=== PATIENT | male | born 1955 | race Caucasian/White ===

== ENCOUNTER 2021-03-23 07:30 | Outpatient (RCR) | payer MEDICARE, OTHER, SELFPAY ==
--- NOTE | 2021-03-02 13:40 | HP.PTEVAL_ITS ---
Patient's Visit Information MATEO ESQUEDA is a 65 year old M referred to Physical Therapy by Dr. Tess Krause DO with a diagnosis of Bilateral Hip Bursitis. Date of Evaluation: 03/02/21 Physical Therapist: Renuka Ambrose DPT - Visit Plan Frequency: 2x /Week Duration: 4 Weeks Plan: Focus on core strength/stabilization. HEP Given IE: TA contraction, bridge, hip adduction, pirformis stretch seated, hamstring stretch - Subjective Patient reports that he has been having pain for about a year-insidious onset- feels the pain is spreading further down his legs but the pain is the same. Describes the pain as burning- pain is in the gluts and radiates down the left LE- the knee and both of his feet hurt in the arches. Worst: 5/10 Agg: walking distances (500 feet). Eases: sits down the pain goes away Best: 0/10. Almost instantly the pain goes away. No N/T in the LE. Has not had any x-rays taken. He has had intermittent back problems- nothing he has gotten looked at- sciatica. 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 No issues with his legs given out, stumbles or falls. 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 If he walks he can stop and the pain diminishes but doesn't completely go away until he sits down. Sleep: does wake him up if he sleeps on his right side- he will roll over to his left. The left doesn't bother him when he lays on it. He never slept well. He has worked hard his whole life. PMHx: IBS-Diverticulitis Meds: Cialis. 2 years ago he worked out everyday (TM and free weights). He notices now that he hasn't done any of them he is very limited with endurance. - Objective Posture: FH, RS, can correct with verbal cues but does not maintain. Gait: no deviation noted. HR/TR: able without incidence. SLS: 15 seconds- increased trunk sway and hip drop. Stairs: asc/desc- 8 recip with no HR- moderate decrease in control with descent. ROM: Lumbar: WFL reports discomfort with Rot and SB bilateral, Hip: IR/ER increase pain with 25% limitation. Knee/Ankle: WFL. Strength: Core: fair minus, Hip: 4/5 throughout pain with IR/ER, Knee: 5/5 Ankle: 5/5. Flex: HS: severe, Gastroc: severe,. Special Test: LLD negative, Slump: positive, SLR: positive, Dural Signs: positive. Sensation: WNL to gross touch bilateral - Goals Goal 1:: Patient will be I with HEP and progression Goal Time Frame: 4-6 Weeks Goal 2:: Patient will maintain proper posture t/o tx session to demo increased core strength and stabilization Goal Time Frame: 4-6 Weeks Goal 3:: Patient will report no pain with ambulation Goal Time Frame: 4-6 Weeks Goal 4:: Patient will report no radiating symptoms. Goal Time Frame: 4-6 Weeks - Rehabilitation Potential Physical Therapy Diagnosis: Patient presents with hypomobility- he has decreased LE and core strength/stabilization, flex and muscular endurance leading to poor posture and increased pain with ADL's. Rehabilitation Potential: Fair - Anticipated Interventions Patient/Client Instruction: Educate patient on: Benefits of Fitness Program Therapeutic Exercise to Include: Strength training, Endurance training, Balance training, Coordination, Agility training, Body mechanics, Postural training, Flexibilty training, Gait and locomotor training, Neuromotor development, Passive ROM, Active ROM, Dynamic Lumbar Stabilization, Scapular Strength/Stabilization For the Purpose of:: To improve muscle performance and motor function Thank you for the opportunity to evaluate your patient. For Medicare and Medicare HMO plans, please review the plan of care and approve it. It will need to be FAXED BACK to us at [phone] for Medicare purposes. For Medicare only, by signing this I certify the plan of care. Please let me know if there are questions or concerns regarding this plan of care. Physician Signature: Date:
--- NOTE | 2021-07-31 08:10 | HP.PT.NRP ---
PANKAJ ESQUEDA was seen in my office for initial evaluation on 03/02/21. The following Plan of Care was established for this patient: Initial Frequency: 2x /Week Initial Duration: 4 Weeks Patient/Client Instruction: Educate patient on: Benefits of Fitness Program Therapeutic Exercise to Include: Strength training, Endurance training, Balance training, Coordination, Agility training, Body mechanics, Postural training, Flexibilty training, Gait and locomotor training, Neuromotor development, Passive ROM, Active ROM, Dynamic Lumbar Stabilization, Scapular Strength/Stabilization For the Purpose of:: To improve muscle performance and motor function This patient was last seen in our office . Pertinent comments regarding their Physical therapy will appear below: Patient has not attended PT in over 4 weeks and is appropriate for discharge- return to MD for further evaluation as needed. At this point I will be discontinuing this patient from physical therapy. I would be happy to see this patient again in the future if found appropriate by the physician. Thank you! Renuka Ambrose, SOFIAT Balance/Gait/Functional tests - Balance/Special Test Scores Lower Extremity Functional Score: 49
== END 2021-03-23 19:00 | disposition home or self-care (01) ==
LOC: PT 07:30
PROVIDERS: PCP Internal Medicine; Referring Provider Internal Medicine; Visit Provider Internal Medicine
DX: M70.62 Trochanteric bursitis, left hip (principal); M70.61 Trochanteric bursitis, right hip; Y93.9 Activity, unspecified
CPT/HCPCS: 97110; 97162

== ENCOUNTER → 2021-04-20 14:31 | Outpatient (CLI) | payer MEDICARE, OTHER, SELFPAY ==
[2021-04-20 16:20] LABS: Bacteria 0 SEEN /hpf (None Seen); Mucous, Urine 0 SEEN /hpf (<or=2+); Squamous Epithelial Cells - UA 0 SEEN /hpf (0-5)
[2021-04-20 16:25] LABS: Color, Urine Yellow (Yellow); Glucose, Dipstick Normal (Normal); Ketone-Dipstick Negative (Negative); Leukocyte Esterase-Dipstick 500 /ul (Negative); Nitrite-Dipstick Negative (Negative); Occult Blood-Urine 250 /ul (Negative); Protein-Dipstick 30 mg/dl (Negative); Specific Gravity, Urine 1.025 (1.002-1.030); Urine Bilirubin Dipstick Negative (Negative); Urine Clarity Cloudy (Clear); Urine Urobilinogen Normal (Normal)
[2021-04-20 19:28] LABS: Amorphous Sediment 3+; Calcium Oxalate Crystals Ur 2+ /hpf (<or=2+)
[2021-04-20 19:29] LABS: Red Blood Cells-Urine 5-10 SEEN /hpf (0-5); White Blood Cells 10-25 SEEN /hpf (0-5)
== END ==
PROVIDERS: PCP Internal Medicine; Referring Provider Nurse Practitioner Adult Health; Visit Provider Nurse Practitioner Adult Health
DX: R31.21 Asymptomatic microscopic hematuria (principal); Z12.5 Encounter for screening for malignant neoplasm of prostate
CPT/HCPCS: 36415; 81001; 84153; G0103

== ENCOUNTER → 2021-05-30 09:20 | Outpatient (CLI) | payer MEDICARE, OTHER, SELFPAY ==
--- NOTE | 2021-05-30 09:24 | RAD_ITS ---
INDICATION: URINARY CALCULI EXAMINATION/TECHNIQUE: X-RAY - XR Abdomen 1 View COMPARISON: None FINDINGS: BOWEL GAS PATTERN: Non-obstructive. No bowel or stomach distention. FREE AIR: Not assessed on a single supine view. ORGANOMEGALY: Not seen. CALCIFICATIONS: Multiple calcifications visualized superimposed over the left renal bed, largest of which is visualized superimposed over the medial aspect of the midpole of the left kidney measuring 1.4 cm. No calcifications superimposed over the right renal bed. LOWER CHEST: No acute pathology. BONES AND SOFT TISSUES: Degenerative bone changes seen. No acute pathology. RAD/Abdomen Single View IMPRESSION: Multiple calcifications visualized superimposed over the left renal bed, largest of which is visualized superimposed over the medial aspect of the midpole of the left kidney measuring 1.4 cm. Non-obstructive bowel gas pattern. Electronically Signed: Fabian Davis MD at 12:20 EDT Tel , Service support ,
== END ==
PROVIDERS: PCP Internal Medicine; Referring Provider Urology; Visit Provider Urology
DX: Z87.442 Personal history of urinary calculi (principal)
CPT/HCPCS: 74018

== ENCOUNTER → 2021-06-12 09:58 | Outpatient (CLI) | payer MEDICARE, OTHER, SELFPAY ==
[2021-06-12 11:11] LABS: Hematocrit 46.4 % (40-54); Hemoglobin 15.3 g/dL (13.0-16.5); Mean Corpuscular Hgb 30.7 pg (27.0-32.0); Mean Corpuscular Volume 93.2 fL (80-94); Mean Platelet Vol. 9.4 fl (6.2-12.0); Platelet Count 205 K/mm3 (150-450); RBC Distribution Width CV 13.6 % (11.6-14.6); RBC Distribution Width SD 46.3 fl (35.1-43.9); Red Blood Count 4.98 M/mm3 (4.6-6.2); White Blood Count 2.7 K/mm3 (4.4-11.0)
[2021-06-12 11:34] LABS: Anion Gap 6 (5-15); BUN 25 mg/dL (7-18); BUN/Creat Ratio 28.5 RATIO (10-20); Calcium,Total 8.8 mg/dL (8.5-10.1); Chloride 105 mmol/L (98-107); Creatinine, Serum 0.88 mg/dL (0.70-1.30); EST Glomerular Filtration Rate 92 mL/min (>60); Est Glom Filt Rate - Afr Amer 112 mL/min (>60); Glucose 106 mg/dL (74-106); Sodium Level 139 mmol/L (136-145)
== END ==
PROVIDERS: PCP Internal Medicine; Referring Provider Urology; Visit Provider Urology
DX: Z01.818 Encounter for other preprocedural examination (principal); Z03.818 Encounter for observation for suspected exposure to other biological agents ruled out
CPT/HCPCS: 36415; 80048; 85027; 87635; C9803; U0005; U0003

== ENCOUNTER → 2021-06-29 06:28 | Outpatient (CLI) | payer MEDICARE, OTHER, SELFPAY ==
--- NOTE | 2021-06-29 06:38 | MRI_ITS ---
History: LOW BACK PAIN, LEFT SCIATIC NERVE PAIN Technique: T1 and T2 MR imaging of the lumbar spine performed without contrast enhancement in axial and sagittal planes. Findings: Loss of the lumbar lordosis. Prominent disc space narrowing noted at the L2-3 and L3-4 levels and to a lesser degree at L4-5 and L5-S1. Modic type II endplate changes are present at the L2-3 level. Conus medullaris and cauda equina are normal. Paraspinal soft tissues are normal. L1-2: No disc protrusion. Normal caliber spinal canal and neural foramina. L2-3: No disc protrusion. Normal caliber spinal canal and neural foramina. L3-4: The vertebral body hypertrophy and facet arthropathy noted causing minimal narrowing of the spinal canal and neuroforamina. L4-5: Mild disc bulging, ligamentous redundancy and facet arthropathy result in minimal impression on the thecal sac and moderate narrowing of the neural foramina. L5-S1: Prominent left central disc herniation displaces the left L5 nerve root and causes significant narrowing of the left lateral recess. Left-sided facet arthropathy also contributes to significant narrowing of the left neural foramen. IMPRESSION: Large left central L5-S1 disc herniation displacing the L5 nerve root and causing significant narrowing of the left lateral recess. Additional findings detailed above. at 1003 Reported and signed by: Jarvis Lipscomb MD Electronically Signed: Jarvis Lipscomb MD at 10:02 EDT Tel , Service support , MRI/Spine Lumbar (Routine)
== END ==
PROVIDERS: PCP Internal Medicine; Referring Provider Internal Medicine; Visit Provider Internal Medicine
DX: M54.32 Sciatica, left side (principal)
CPT/HCPCS: 72148

== ENCOUNTER 2021-07-05 09:17 | Day surgery (SDC) | payer MEDICARE, OTHER, SELFPAY ==
--- NOTE | 2021-07-04 08:50 | RAD_ITS ---
STUDY: X-RAY - ABDOMEN/PELVIS REASON FOR EXAM: Male, 65 years old. Preoperative evaluation for kidney stones. TECHNIQUE: Single AP view of the abdomen / pelvis. COMPARISON: 05/30/2021. FINDINGS: Ureteral catheter in place. There is an unremarkable bowel gas pattern. There is no demonstrated free abdominal air. Stable calcifications overlying the left kidney. Normal soft tissue structures. Normal visualized osseous structures. RAD/Abdomen Single View IMPRESSION: Placement of ureteral catheter with stable left nephrocalcinosis. No acute finding. Electronically Signed: Cayetano Otero MD at 10:01 EDT , Service support ,
[2021-07-05 09:45] VITALS: BP 132/75; PULSE 85; RESP 18; TEMP 36.4; O2SAT 97; BMI 28.5
[2021-07-05] MEDS: Lactated Ringers 1,000 ML 100 ML IV (09:45)
[2021-07-05] MEDS: Cefazolin 2 GM in 0.9% Normal Saline 100 ML IV (11:08)
--- NOTE | 2021-07-05 11:09 | OP.PCM_ITS ---
Report of Operation Date of Procedure: 07/05/21 Pre-Operative Diagnosis: left renal calucli s/p stent placement. Post-Operative Diagnosis: same Surgery/Procedure Performed:: Left ESWL Description of Surgical Findings:: Patient presents to the hospital for treatment of a kidney stone with shockwave lithotripsy. In the preoperative area and x-ray was done to confirm the location of the stone, he currently has a stent in place with stone visible on pre op KUB. The x-ray was reviewed and the stone location was reviewed. In the preoperative setting I spoke with the patient regarding the treatment of the stone how the treatment would be conducted and the expectations after surgery. The patient understands there is a risk of bleeding and infection. Also discussed the very rare risk of hematoma or damage to the kidney. We also discussed the risk that the shockwave machine will fail to break the stone adequately and that the patient may need other surgical procedures. We also discussed the possibility that the patient may n eed a stent after the procedure. After reviewing the procedure with the patient, the patient is signed the consent form all the patient's questions were addressed and was taken back to the operating room for treatment of a kidney stone. Patient was taken back to the operating room, patient was identified by the nursing staff, we identified the side of the treatment and the patient side of treatment had been marked by my initials. The patient underwent general anesthetic and was placed supine on the lithotripter table. We then used fluoroscopy to identify the stone on the Left side. We then positioned the patient under the lithotripter and we used triangulation technique to identify the location of the stone and then we made sure that the stone was engaged in the F2 focal point of F2 Donier lithoprior machine. Once the patient was positioned appropriately and the stone was identified and placed in the F2 focal point of the lithotripter machine we then proceeded with shockwave lithotripsy. In the beginning the shockwave was delivered at a rate of 90 shocks per minute, we monitor the EKG for any ectopy. The power was slowly increased to 5 kV and subsequently at the 7 kV. We then proceeded with the treatment we move the therapy had around during the treatment to make sure the stone stayed in the F2 focal point during the entire treatment and after 3000 shockwaves were delivered to the stone under fluoroscopic guidance the treatment was completed. The patient was given instructions to call the office to make an a follow-up appointment with an xray to evaluate the success of the treatment, pateint understands that its possible the stones may need another procedure.At this point the patient's anesthetic was reversed patient was extubated and taken back to the PACU in stable condition. Surgeon: crow Type of Anesthesia: General Drains: stent in place. Admit VTE Documentation VTE Present on Admission: No VTE Mechan Device Prophylaxis: SCD's
--- NOTE | 2021-07-05 11:09 | PCM.DC ---
Discharge Instructions Diet Discharge Diet: No restrictions Activity Discharge Activity: Return to Normal Activity and May Not Drive (while taking narcotic pain medications.) Dressing / Incision Call your doctor if you observe: Fever of 101 or Higher Follow Up Care Please Follow Up With: Nicola Magana MD When: Call [phone] for an appointment Test Results: Test results from this visit will be discussed in further detail at your follow-up appointment, if applicable. use OTC ibuprofen and tylenol for pain control Discharge Plan Admission Primary Reason for Your Visit: Left ESWL Attending Provider: Nicola Magana Primary Care Provider: Tess Krause Discharge Orders/Prescriptions Prescriptions: New ciprofloxacin HCl [Cipro] 500 mg tablet 500 mg PO BID Qty: 10 RF: 0 Continued citalopram [Celexa] 40 mg Tablet 20 mg PO DAILY RF: 0 organ concentrates 140 mg Capsule 140 mg PO DAILY RF: 0 tadalafil [Cialis] 5 mg Tablet 5 mg PO DAILY RF: 0 cholecalciferol (vitamin D3) [Vitamin D3] 25 mcg (1,000 unit) Tablet 25 mcg PO DAILY RF: 0 phenazopyridine 95 mg Tablet 99.9 mg PO QHS RF: 0 Referrals / Follow Up: Nicola Magana MD [STAFF PHYSICIAN] - Tess Krause DO [Primary Care Provider] - Disposition Disposition (needs filled in before D/C Order can be placed): Home, Self Care
[2021-07-05 12:03] VITALS: BP 129/89; BP 132/75; PULSE 78; RESP 16; TEMP 36.4; O2SAT 95
[2021-07-05 12:15] VITALS: BP 132/75; BP 140/80; PULSE 67; RESP 18; O2SAT 96
[2021-07-05] MEDS: Ketorolac 15 MG/ML Vial IV (12:16)
[2021-07-05 12:23] VITALS: BP 132/75; BP 144/83; PULSE 75; RESP 18; TEMP 36.4; O2SAT 96
[2021-07-05 13:20] VITALS: BP 132/75; BP 155/74; PULSE 67; RESP 16; TEMP 35.9; O2SAT 97
--- NOTE | 2021-07-07 12:42 | PCM.HP.STD ---
HPI - General HPI Narrative PANKAJ ESQUEDA, is a 65 M who presents with obstructing stone, plan to place and stent treat stone with shockwave lithotripsy. PFSH Medical History (Updated 06/28/21 @ 10:52 by Megan Gonzáles) Alcohol use Back pain Former smoker Heartburn History of diverticulitis History of IBS History of stress test Wears glasses Home Medications cholecalciferol (vitamin D3) [Vitamin D3] 25 mcg PO DAILY 06/28/21 [History Last Taken Unknown] citalopram [Celexa] 20 mg PO DAILY 06/28/21 [History Last Taken Unknown] organ concentrates 140 mg PO DAILY 06/28/21 [History Last Taken Unknown] phenazopyridine 99.9 mg PO QHS 06/28/21 [History Last Taken Unknown] tadalafil [Cialis] 5 mg PO DAILY 06/28/21 [History Last Taken Unknown] cephalexin 500 mg PO BID #10 tab 07/05/21 [Rx Last Taken Unknown] Allergy/AdvReac Type Severity Reaction Status Date / Time ciprofloxacin [From Cipro] AdvReac REFUSED, Verified 07/05/21 13:16 TOO MANY SIDE EFFECTS, TENDON DAMAGE Surgical History (Updated 06/28/21 @ 10:52 by Megan Gonzáles) History of cardiac catheterization Hx of colonoscopy Hx of cystoscopy Social History Smoking Status: Former smoker Vital Signs Vital Signs Vital Signs: Weight Weight: 75.5 kg Body Mass Index (BMI) 28.5
== END 2021-07-05 13:31 | disposition home or self-care (01) ==
LOC: SDC 09:18 → AC 09:18
PROVIDERS: PCP Internal Medicine; Referring Provider Urology; Visit Provider Urology
PROC: (CPT 50590; principal; 2021-07-05 11:20)
DX: N20.0 Calculus of kidney (principal); Z87.891 Personal history of nicotine dependence
CPT/HCPCS: 50590; 74018; 87426; C9803; J7120; J2405

== ENCOUNTER → 2021-07-10 10:21 | Outpatient (CLI) | payer MEDICARE, OTHER, SELFPAY ==
--- NOTE | 2021-07-10 10:25 | RAD_ITS ---
HISTORY: CALCULUS OF URETER. TECHNIQUE: XR Abdomen 1 View. # of images incl. paperwork: 1. COMPARISON: 07/04/2021. FINDINGS: BOWEL GAS PATTERN: No dilated bowel loops. FREE AIR: Not assessed on supine view. CALCIFICATIONS: Multiple left renal calculi again seen. Left pelvic phleboliths also noted. Left double-J ureteral stent again seen. OSSEOUS STRUCTURES: Mild degenerative change. RAD/Abdomen Single View IMPRESSION: Left nephrolithiasis with left ureteral stent identified. at 0841 Reported and signed by: Sharon Thomson MD Electronically Signed: Sharon Tohmson MD at 8:40 EDT Tel , Service support ,
== END ==
PROVIDERS: PCP Internal Medicine; Referring Provider Urology; Visit Provider Urology
DX: N20.1 Calculus of ureter (principal)
CPT/HCPCS: 74018

== ENCOUNTER → 2021-09-01 09:32 | Outpatient (CLI) | payer MEDICARE, OTHER, SELFPAY ==
--- NOTE | 2021-09-01 09:39 | CT_ITS ---
STUDY: CTA CHEST REASON FOR EXAM: Male, 65 years old. PULMONARY THROMBOEMBOLISM. 3 week history of shortness of breath and chest pain. Recent Covid exposure. RADIATION DOSAGE (If Supplied By Facility): CTDIvol = ( 9.89 ) mGy, DLP = ( 430.61 ) mGycm TECHNIQUE: The examination was performed with the intravenous administration of IV 75mL [id number]-[id number]. Post-processing of the angiographic images was performed, with multiplanar reformation and 3D reconstruction. Individualized dose optimization techniques were used for this CT. COMPARISON: None. FINDINGS: Normal enhancement of the main pulmonary artery and right and left pulmonary arteries. Normal enhancement of the bilateral peripheral pulmonary arteries. There is no demonstrated pulmonary embolism. Normal thoracic aorta and visualized great vessels. There is no demonstrated aortic dissection. Normal heart and pericardium. Normal mediastinum. Normal hilar regions. Normal visualized trachea and bronchi. The lungs are well expanded. Diffuse bilateral pulmonary infiltrates and a preferential peripheral distribution suggestive of a pneumonitis associated with Covid. Normal pleura. Normal chest wall structures. There are degenerative changes of thoracic spine. 8.6 mm adenoma in the left adrenal gland. CT/CTA Chest W/WO Contrast IMPRESSION: No evidence of pulmonary embolism. Diffuse bilateral pulmonary infiltrates and a preferential peripheral distribution suggestive of pneumonitis associated with Covid. Electronically Signed: Eddy Overton MD at 10:25 EST , Service support ,
[2021-09-01 09:56] LABS: CREATININE FINGERSTICK 0.6 mg/dL (0.70-1.30); EGFR FINGERSTICK > 60.0000 mL/min (>60)
== END ==
PROVIDERS: PCP Internal Medicine; Referring Provider Internal Medicine; Visit Provider Internal Medicine
DX: R06.02 Shortness of breath (principal)
CPT/HCPCS: 71275; Q9967

== ENCOUNTER 2022-01-01 10:17 | Outpatient (CLI) | payer MEDICARE, OTHER, SELFPAY ==
--- NOTE | 2022-01-01 10:22 | RAD_ITS ---
STUDY: X-RAY - ABDOMEN/PELVIS REASON FOR EXAM: Male, 66 years old. CALCULUS OF KIDNEY TECHNIQUE: Single AP view of the abdomen / pelvis. COMPARISON: Comparison is made with prior study 07/10/2021. FINDINGS: Normal visualized lung bases. There is a moderate amount of colonic fecal material. The visualized liver, spleen and kidneys are grossly normal in size and morphology. The previously seen left double-J stent catheter has been withdrawn. Normal soft tissue structures. There are diffuse degenerative changes of the visualized lumbar spine. RAD/Abdomen Single View IMPRESSION: No acute abnormality is seen. Electronically Signed: Eddy Overton MD at 15:01 EDT ,
== END 2022-01-01 23:59 | disposition home or self-care (01) ==
LOC: RAD 10:20
PROVIDERS: PCP Internal Medicine; Referring Provider Urology; Visit Provider Urology
DX: N20.0 Calculus of kidney (principal)
CPT/HCPCS: 74018

== ENCOUNTER 2023-03-03 19:01 | Emergency (ER) | payer MEDICARE, OTHER, SELFPAY ==
[2023-03-03 19:02] VITALS: BP 139/78; PULSE 95; RESP 18; TEMP 36.9; O2SAT 97; BMI 29.0
--- NOTE | 2023-03-03 19:26 | EDS_ITS ---
HPI History of Present Illness Chief Complaint: Abd Pain [facility] Medical History (Updated 03/03/23 @ 22:[address] Artemio Brandon, DO) Alcohol use Back pain Former smoker Heartburn History of diverticulitis History of IBS History of stress test Wears glasses Home Medications cholecalciferol (vitamin D3) 25 mcg (1,000 unit) tablet (Vitamin D3) 25 mcg PO DAILY 06/28/21 [History Last Taken Unknown] citalopram 40 mg tablet (Celexa) 20 mg PO DAILY 06/28/21 [History Last Taken Unknown] organ concentrates 140 mg capsule 140 mg PO DAILY 06/28/21 [History Last Taken Unknown] phenazopyridine 95 mg tablet 99.9 mg PO QHS 06/28/21 [History Last Taken Unknown] tadalafil 5 mg tablet (Cialis) 5 mg PO DAILY 06/28/21 [History Last Taken Unknown] cephalexin 500 mg tablet 500 mg PO BID #10 tabs 07/05/21 [Rx Last Taken Unknown] amoxicillin 875 mg-potassium clavulanate 125 mg tablet 1 tab PO BID 7 days #14 tabs 03/03/23 [Rx Last Taken Unknown] Allergy/AdvReac Type Severity Reaction Status Date / Time ciprofloxacin [From Cipro] AdvReac REFUSED, Verified 03/03/23 19:04 TOO MANY SIDE EFFECTS, TENDON DAMAGE Surgical History History of cardiac catheterization Hx of colonoscopy Hx of cystoscopy Social History Smoking Status: Former smoker EXAM Physical Exam Const Vital Signs: 03/03/23 19:02 03/03/23 22:25 Temperature 98.5 F Temperature Source Temporal Pulse Rate 95 Respiratory Rate 18 Blood Pressure 139/78 H 144/83 H Blood Pressure Mean 98 Pulse Ox 97 MDM MDM MDM Narrative Medical decision making narrative: HISTORY OF PRESENT ILLNESS: 67-year-old male here for abdominal pain. Notes 3 days of left lower quad abdominal pain with diarrhea. He is history of IBS. He further states he has severe left lower quadrant abdominal pain. Its not worse with food. States he has history of kidney stones is much more painful and not similar. Denies any urinary complaint such as frequency, urgency or foul smell. Denies any fever or vomiting. Denies any chest pain or shortness of breath. REVIEW OF SYSTEMS: Pertinent positives: Left lower quadrant abdominal pain Pertinent negatives: Vomiting PHYSICAL EXAM: Nursing triage notes reviewed, Vital signs reviewed Constitutional: please see mdm HENT: MMM Eyes: Pupils equal round and reactive to light, Extraocular muscles intact Neck: No stridor, no JVD, full neck ROM Lungs: Clear to auscultation, No wheezing or rales. No increased work of breathing, no conversational dyspnea, no accessory muscle use, no nasal flaring. No respiratory distress noted Heart: Regular rate and rhythm, No murmurs, No rubs and No gallops, 2+ distal pulses (radial, femoral, posterior tibial) in all extremities Abdomen: Soft, there is no tenderness, rigidity, rebound or guarding, no obvious peritoneal signs, no palpable pulsatile abdominal masses, no auscultated abdominal bruit : No CVAT Extremities: No edema Neuro: No focal neurological deficits, cranial nerves II through XII intact, 5/5 strength in all extremities. Intact sensation to light touch in all extremities, 2+ reflexes bilateral patella tendons. Normal gait. No ataxia. Skin: No rash or lesions noted MEDICAL DECISION MAKING: Chief Complaint: Abdominal pain External records reviewed: No recent [place] [facility] imaging of abdomen pelvis Factors affecting care: History of nephrolithiasis, IBS Social determinants of health: History of alcohol abuse History obtained from others: The patient's family Consults: None ALL IMAGES HAVE BEEN PERSONALLY REVIEWED AND INTERPRETED BY MYSELF. [facility] Narrative: I considered the following differential diagnosis: IBS flare, diverticulitis, dehydration, intra-abdominal infection, obstruction or perforation I obtained a CT scan abdomen pelvis showed evidence of acute diverticulitis. There is no signs of systemic inflammation, endorgan hypoperfusion on CBC or BMP. Patient was given first dose of Augmentin here. They were tolerated. He was given pain medicine and follow-up instructions as well as strict return precautions. Patient agreed with the plan. Total critical care time today provided was at least 0 minutes. This excludes separately billable procedures. Critical care time if documented is secondary to the patient having high probability of clinically significant/life threatening deterioration in the patient's condition which required my urgent intervention. Shared decision making: I will have a discussion with the patient and or visitors regarding risk/benefits of further testing or admission. They will be made aware of of the risk/benefits inherent in this decision they will be given the opportunity to voice understanding. Lab Data Attestation: I reviewed the patient's lab results. Lab results narrative: CBC without leukocytosis, severe anemia, no thrombocytopenia. BMP without evidence of significant electrolyte abnormalities, no anion gap, no acute kidney injury. Lipase is wnl indicating no pancreatic inflammation. Labs: Laboratory Results - last 24 hr 03/03/23 03/03/23 19:41 19:41 WBC 8.1 RBC 5.34 Hgb 16.1 Hct 49.4 MCV 92.5 MCH 30.1 MCHC 32.6 RDW Std Deviation 45.3 H RDW Coeff of Ne 13.4 Plt Count 268 MPV 10.2 Immature Gran % (Auto) 0.200 Neut % (Auto) 76.1 H Lymph % (Auto) 14.9 L [place] % (Auto) 7.7 Eos % (Auto) 0.7 Baso % (Auto) 0.4 Absolute Neuts (auto) 6.1 Absolute Lymphs (auto) 1.20 Nucleated RBC % 0 Sodium 137 Potassium 4.6 Chloride 106 Carbon Dioxide 25.0 Anion Gap 6 BUN 17 Creatinine 1.04 Estim Creat Clear Calc 56.92 Est GFR (MDRD) Af Amer 91 Est GFR (MDRD) Non-Af 75 BUN/Creatinine Ratio 16.3 Glucose 102 Calcium 9.5 Lipase 49 Radiography Diagnostic Testing: Clinical Impression(s) from Imaging Studies Abdomen/Pelvis CT 03/03/23 21:21 IMPRESSION: Acute diverticulitis of the distal descending colon without perforation or abscess. Nonobstructing stones of the left kidney. Electronically Signed: Miky Beltran MD at 22:13 EDT , Discharge Plan Triage Chief Complaint: Abd Pain ED Provider: Artemio Brandon Dx/Rx/DC Orders Clinical Impression: Acute diverticulitis Instructions: ED Diverticulitis Prescriptions: New amoxicillin-pot clavulanate 875-125 mg tablet 1 tab PO BID 7 Days Qty: 14 0RF No Action citalopram [Celexa] 40 mg Tablet 20 mg PO DAILY organ concentrates 140 mg Capsule 140 mg PO DAILY tadalafil [Cialis] 5 mg Tablet 5 mg PO DAILY cholecalciferol (vitamin D3) [Vitamin D3] 25 mcg (1,000 unit) Tablet 25 mcg PO DAILY phenazopyridine 95 mg Tablet 99.9 mg PO QHS cephalexin 500 mg tablet 500 mg PO BID Qty: 10 0RF Stand Alone Forms: ED Work / School Excuse Primary Care Provider: Tess Krause Referrals: Tess Krause, [Primary Care Provider] - Activity Restrictions/Additional Instructions: Thank you for trusting us with your care today! Please take Tylenol (2 pills, 650 mg), ibuprofen (2 pills, 400 mg) every 6 hours as needed for pain and fever control. Please take antibiotics until course complete. Please return to the emergency department if your symptoms change or worsen. Specifically if you develop acutely worsening abdominal pain, fever, vomiting cannot take antibiotics, if you cannot have bowel movements for greater than 7 days. Please follow with your primary care physician for further outpatient evaluation and management. Disposition Disposition: Home, Self Care Discharge Date/Time: 03/03/23 22:48
[2023-03-03 19:49] LABS: Absolute Neutrophil Count 6.1 X10^3/uL (2.0-7.7); Basophil# 0.03 X10^3/uL; Basophil% 0.4 % (0-1); Eosinophil# 0.06 X10^3/uL; Eosinophils% 0.7 % (0-5); Hematocrit 49.4 % (40-54); Hemoglobin 16.1 g/dL (13.0-16.5); Lymphocyte % 14.9 % (19-41); Mean Corp Hgb Conc 32.6 g/dL (32-36); Mean Corpuscular Hgb 30.1 pg (27.0-32.0); Mean Corpuscular Volume 92.5 fL (80-94); Mean Platelet Vol. 10.2 fl (6.2-12.0); Monocyte# 0.62 X10^3/uL; Monocyte% 7.7 % (0-10); NRBC Flagged by Analyzer 0 % (0-5); Neutrophil # 6.14 X10^3/uL (2.7-7.7); Neutrophil % 76.1 % (47-70); Platelet Count 268 K/mm3 (150-450); RBC Distribution Width CV 13.4 % (11.6-14.6); RBC Distribution Width SD 45.3 fl (35.1-43.9); Red Blood Count 5.34 M/mm3 (4.6-6.2); White Blood Count 8.1 K/mm3 (4.4-11.0)
[2023-03-03] MEDS: 0.9% Normal Saline 1,000 ML 1000 ML IV (19:49)
[2023-03-03] MEDS: Ondansetron 4 MG/2 ML Vial IV (19:50)
[2023-03-03] MEDS: Ketorolac 15 MG/ML Vial IV (19:50)
[2023-03-03 20:04] LABS: Anion Gap 6 (5-15); BUN 17 mg/dL (7-18); BUN/Creat Ratio 16.3 RATIO (10-20); Calcium,Total 9.5 mg/dL (8.5-10.1); Chloride 106 mmol/L (98-107); Creatinine, Serum 1.04 mg/dL (0.70-1.30); EST Glomerular Filtration Rate 75 mL/min (>60); Est Glom Filt Rate - Afr Amer 91 mL/min (>60); Estimated Creatinine Clearance 56.92 ml/min; Glucose 102 mg/dL (74-106); Lipase 49 U/L (13-75); Potassium 4.6 mmol/L (3.5-5.1); Sodium Level 137 mmol/L (136-145)
--- NOTE | 2023-03-03 21:21 | CT_ITS ---
STUDY: CT ABDOMEN AND PELVIS WITH CONTRAST REASON FOR EXAM: Male, 67 years old. Left lower quadrant abdominal pain RADIATION DOSAGE (If Supplied By Facility): CTDIvol = ( 12.49 ) mGy, DLP = ( 762.50 ) mGycm TECHNIQUE: Transaxial images were obtained from the dome of the diaphragm to the symphysis pubis without oral contrast. IV 100mL Isovue-300 was administered. Sagittal and coronal images were reconstructed. Individualized dose optimization techniques were used for this CT. COMPARISON: None. FINDINGS: The visualized lung bases are unremarkable. The visualized portions of the heart are within normal limits. Normal liver with probable 1.2 cm cyst of the dome of the liver and additional subcentimeter cyst of the posterior segment of the right hepatic lobe.. Normal gallbladder and extrahepatic biliary system. There are multiple benign calcified granulomata of the spleen. Normal pancreas. Normal bilateral adrenal glands. Normal right kidney. Left kidney has small nonobstructing stones in the upper and lower poles. There are bilateral parapelvic cysts. Normal visualized stomach. Normal small intestine. There is diverticulosis, with thickening of the colon wall, and pericolonic inflammation changes consistent with acute diverticulitis of the distal descending colon. No evidence for perforation or abscess. The appendix is visualized and appears normal. Normal abdominal aorta. Normal inferior vena cava. Normal retroperitoneum. Normal urinary bladder. There is enlargement of the prostate gland. There are calcifications of the prostate. Normal abdominal wall. There are diffuse degenerative changes of the visualized lumbar spine. CT/Abdomen/Pelvis W IV Cont ONLY IMPRESSION: Acute diverticulitis of the distal descending colon without perforation or abscess. Nonobstructing stones of the left kidney. Electronically Signed: Miky Beltran MD at 22:13 EDT ,
[2023-03-03 22:25] VITALS: BP 144/83
[2023-03-03] MEDS: Amox/Clavulanate 875 MG Tablet PO (22:37)
== END 2023-03-03 22:48 | disposition home or self-care (01) ==
PROVIDERS: Emergency Provider Emergency Medicine; PCP Internal Medicine; Visit Provider Emergency Medicine
DX: K57.32 Diverticulitis of large intestine without perforation or abscess without bleeding (principal); Z87.891 Personal history of nicotine dependence; Z87.19 Personal history of other diseases of the digestive system; Z87.442 Personal history of urinary calculi
CPT/HCPCS: 74177; 80048; 83690; 85025; 96361; 96374; 96375; 99283; J7030; Q9967; A4216; J2405

== ENCOUNTER → 2023-07-15 | Outpatient (CLI) | payer MEDICARE, OTHER, SELFPAY ==
--- NOTE | 2023-07-15 13:39 | ECHOCS_ITS ---
Reason For Study: ABN EKG Procedure This was a 2D Doppler, Color Flow transthoracic echocardiogram. The study was technically difficult. Exam performed in department. Left Ventricle Normal LV size. The estimated ejection fraction is 60 %. No evidence for diastolic dysfunction. No regional wall motion abnormalities noted. Right Ventricle Normal RV size. Normal systolic function. Atria Normal left atrium. Normal right atrium. No doppler evidence for ASD. Mitral Valve There is no mitral valve stenosis. Trivial mitral valve insufficiency. Tricuspid Valve There is no tricuspid stenosis. Unable to estimate RV systolic pressure due to inadequate jet, pulmonary artery pressure probably normal. Aortic Valve Trisinus/trileaflet aortic valve. There is no aortic stenosis. No aortic valve insufficiency. Pulmonic Valve There is no pulmonic valvular stenosis. No pulmonic valve insufficiency. Great Vessels Normal aortic root. Pericardium/Pleural No pericardial effusion. Medication 22 gauge I.V. with prn adaptor inserted into right arm. Diluted definity 2ml given slow IV push to enhance endocardial definition. MMode/2D Measurements & Calculations LVIDd: 4.9 cm IVSd: 0.78 cm Ao root diam: 3.2 cm LVIDs: 3.2 cm LVPWd: 0.78 cm RVDd: 3.5 cm FS: 34.5 % LAV(MOD-bp): 24.1 ml LVAd ap4: 27.6 cm2 SV(MOD-sp4): 49.2 ml LAV(MOD-bp) Indexed: 13.6 ml/m2 LVLd ap4: 7.6 cm LAV(MOD-sp2): 24.5 ml EDV(MOD-sp4): 83.0 ml LAV(MOD-sp4): 22.0 ml EDV(sp4-el): 84.7 ml LVAs ap4: 15.7 cm2 LVLs ap4: 6.5 cm ESV(MOD-sp4): 33.8 ml ESV(sp4-el): 32.1 ml EF(MOD-sp4): 59.2 % EF(sp4-el): 62.2 % SV(sp4-el): 52.6 ml LA A4 area: 11.3 cm2 LA dimension(2D): 3.5 cm RA A4 area: 9.7 cm2 Time Measurements MV dec time: 0.14 sec Doppler Measurements & Calculations MV E max koby: 55.3 cm/sec Lat Peak E' Koby: 9.2 cm/sec Med Peak E' Koby: 7.7 cm/sec MV A max koby: 64.5 cm/sec E/E' lat: 6.0 E/E' med: 7.2 MV E/A: 0.86 Ao V2 max: 112.7 cm/sec LV V1 max: 89.9 cm/sec PA V2 max: 59.7 cm/sec Ao max P.1 mmHg LV V1 max P.2 mmHg TR max koby: 186.8 cm/sec TR max P.0 mmHg ECHO/Echo Complete W/ Contrast Interpretation Summary The estimated ejection fraction is 60 %. No evidence for diastolic dysfunction. Trivial mitral valve insufficiency. Ordering Physician: Tess Krause Referring Physician: Tess Krause Performed By: Ghazala Mejía RDCS
== END | disposition home or self-care (01) ==
LOC: CVS 13:37
PROVIDERS: PCP Internal Medicine; Referring Provider Internal Medicine; Visit Provider Internal Medicine
DX: R94.31 Abnormal electrocardiogram [ECG] [EKG] (principal)
CPT/HCPCS: 93306; Q9957; A4216; C8929

== ENCOUNTER 2024-03-31 10:00 | Outpatient (RCR) | payer MEDICARE, OTHER, SELFPAY ==
--- NOTE | 2024-01-28 11:24 | HP.PTEVAL ---
Patient's Visit Information Visit Information Visit Information: PANKAJ ESQUEDA is a 68 year old M referred to Physical Therapy by Dr. Mansoor Pete MD with a diagnosis of FULL THICKNESS TEAR OF LEFT SUBSCAPULARIS TENDON. Date of Evaluation: 01/28/24 Physical Therapist: Mina Triana, PT, Cert MDT, OCS Visit Plan Frequency: 2x /Week Duration: 12WEEKS Plan: s/p RTC REPAIR OF SUBSCAPULARIS 12/25 SLING 8 WEEKS SEE PROTOCOL FOR POGRESSION PT INTERVENTIONS PHASE 1 4-6WEEKSS (PROM ) SHOULDER FLEXION 90 DEGREES ,PHASE 2 AAROM ( 6-8 WEEKS ) , AAROM 8-10 WEEKS ,PHASE 3 RESISTED Subjective Subjective: This 68 y/o male presents to physical therapy with s/p left shoulder arthroscopic RTC repair subscapularis tendon on 12/26/[address] Pete at [facility] and D/C DOS with sling and no PT for 4 weeks . Patient had pain block. Sling on for 8 weeks . Plan to F/U with 02/19 . Patient initially fell in [facility] landed arm extended. Patient seen DR Merchant did MRI ,but decided to see DR Pete who did surgery. Patient drive Motor home. Patient has limitations with all ADLS and self hygiene . Patient is right hand dominant. C/O 4th-5th paresthesia. Patient sleep is affected by pain. Patient goals to return to prior level of function. SOCAIL : VOCATION: retired Pain Left Shoulder: Pain Intensity (Out of 10): 2 Pain Intensity Range: 10 Objective Objective: POSTURE: mild forward posture ,sling intact ( 8 weeks) INCISION: well approximate small ports NEURO: c/o paresthesia/tingling 4th-5th fingers PROM: shoulder flexion to 90 degrees ( only per protocol) MMT: ( peak force) not tested Balance/Special Test Scores Quick DASH Score: 63.6350 Goals Goal 1:: Patient to be I with HEP protocol with subscapularis repair Goal Time Frame: 8-12 Weeks Goal 2:: Patient to demonstrate 75% improvement with improved function and less pain Goal Time Frame: 8-12 Weeks Goal 3:: Patient to improve AROM shoulder flexion/abduction 150 degrees and ER 80 degrees to improve ADLS and housework tasks Goal Time Frame: 8-12 Weeks Goal 4:: Patient to improve peak force RTC /deltoid by 15-20# strength to improve function. Goal Time Frame: 8-12 Weeks Goal 5:: Patient to improve quick dash by 5-10 points to improve QOL,and function Goal Time Frame: 8-12 Weeks Rehabilitation Potential Physical Therapy Diagnosis: This patient underwent RTC repair subscapularis 12/25 with decrease ROM ,weakness ,some pain and limitations with all functional activities /ADLS and hobbies thus benefit from skilled PT . Rehabilitation Potential: Good Anticipated Interventions Patient/Client Instruction: Educate patient on: Condition and Plan of Care For the Purpose of:: To decrease pain, To increase ROM, To increase oxygenation perfusion, To improve ability to perform ADL's, To increase tolerance to activity/condition/position, To improve performance and independence with ADL's, To improve ability of physical actions for home/community/work/leisure, To improve health of tissue, To decrease soft tissue restriction, To increase flexibility/ROM and To improve tolerance to ADL's Therapeutic Exercise to Include: Strength training, Passive ROM and Active ROM Comment: SEE PROTOCAL For the Purpose of:: To decrease pain, To increase ROM, To improve muscle performance and motor function, To increase tolerance to activity/condition/position, To improve performance and independence with ADL's, To improve ability of physical actions for home/community/work/leisure, To improve health of tissue, To decrease soft tissue restriction, To increase flexibility/ROM and To assume or resume ADL's Manual Therapy Techniques to Include: Passive ROM For the Purpose of:: To decrease pain, To increase ROM, To improve health of tissue and To decrease soft tissue restriction Text: Thank you for the opportunity to evaluate your patient. For Medicare and Medicare HMO plans, please review the plan of care and approve it. It will need to be FAXED BACK to us at [phone] for Medicare purposes. For Medicare only, by signing this I certify the plan of care. Please let me know if there are questions or concerns regarding this plan of care. Physician Signature: Date:
--- NOTE | 2024-02-27 10:56 | HP.PTREVAL ---
Re-Evaluation Intro: Dr. Mansoor Pete MD, It has been my pleasure to treat PANKAJ ESQUEDA over the last 10 visits for FULL THICKNESS TEAR OF LEFT SUBSCAPULARIS TENDON. Please see the progress note below for an update on the physical therapy plan of care! Subjective Subjective: Doing well Objective Objective/Function: * Patient will cont to benefit from skilled PT with ROM improving and progressing to next phase and all goals are appropriate* AAROM shoulder flexion 145 degrees ,ER 45 degrees ,no pain AROM: shoulder flexion 115 degrees ,abduction in scaption 105 degrees MMT: ( peak force) infraspinatus 8.1 .subscapularis 7.9 ,supraspinatus 5.3,deltoid 3.3 Plan Plan Plan: s/p RTC REPAIR OF SUBSCAPULARIS 12/25 s/p 9WEEKS ON 02/26 (PROGRSS TO NEXT PHASE) SEE PROTOCOL FOR POGRESSION PT INTERVENTIONS PHASE 1 4-6WEEKS (PROM) SHOULDER FLEXION 90 DEGREES, PHASE 2 AAROM (6-8 WEEKS), AAROM 8-10 WEEKS, PHASE 3 RESISTED, MANUAL THERAPY, CP/MHP Balance/Gait/Functional tests Balance/Special Test Scores Quick DASH Score: 29.5450 Goals Goals Goal 1:: Patient to be I with HEP protocol with subscapularis repair Goal Time Frame: 8-12 Weeks Goal Progress: Progressing Goal 2:: Patient to demonstrate 75% improvement with improved function and less pain Goal Time Frame: 8-12 Weeks Goal Progress: Progressing Goal 3:: Patient to improve AROM shoulder flexion/abduction 150 degrees and ER 80 degrees to improve ADLS and housework tasks Goal Time Frame: 8-12 Weeks Goal Progress: Progressing Goal 4:: Patient to improve peak force RTC /deltoid by 15-20# strength to improve function. Goal Time Frame: 8-12 Weeks Goal Progress: Progressing Goal 5:: Patient to improve quick dash by 5-10 points to improve QOL,and function Goal Time Frame: 8-12 Weeks Goal Progress: Progressing Anticipated Interventions Anticipated Interventions Patient/Client Instruction: Educate patient on: Condition and Plan of Care For the Purpose of:: To decrease pain, To increase ROM, To increase oxygenation perfusion, To improve ability to perform ADL's, To increase tolerance to activity/condition/position, To improve performance and independence with ADL's, To improve ability of physical actions for home/community/work/leisure, To improve health of tissue, To decrease soft tissue restriction, To increase flexibility/ROM and To improve tolerance to ADL's Therapeutic Exercise to Include: Strength training, Passive ROM and Active ROM Comment: SEE PROTOCAL For the Purpose of:: To decrease pain, To increase ROM, To improve muscle performance and motor function, To increase tolerance to activity/condition/position, To improve performance and independence with ADL's, To improve ability of physical actions for home/community/work/leisure, To improve health of tissue, To decrease soft tissue restriction, To increase flexibility/ROM and To assume or resume ADL's Manual Therapy Techniques to Include: Passive ROM For the Purpose of:: To decrease pain, To increase ROM, To improve health of tissue and To decrease soft tissue restriction Re-Evaluation Ending Re-evaluation ending: Please do not hesitate to contact me at [phone] by phone or if you have questions or concerns regarding this new plan of care! Sincerely, Mina Triana, PT, Cert MDT, OCS
--- NOTE | 2024-05-01 13:34 | HP.PT.NRP ---
Patient Information Patient Information: PANKAJ ESQUEDA was seen in my office for initial evaluation on 01/28/24. The following Plan of Care was established for this patient: POC Established Initial Frequency: 2x /Week Initial Duration: 12WEEKS Anticipated Interventions Patient/Client Instruction: Educate patient on: Condition and Plan of Care For the Purpose of:: To decrease pain, To increase ROM, To increase oxygenation perfusion, To improve ability to perform ADL's, To increase tolerance to activity/condition/position, To improve performance and independence with ADL's, To improve ability of physical actions for home/community/work/leisure, To improve health of tissue, To decrease soft tissue restriction, To increase flexibility/ROM and To improve tolerance to ADL's Therapeutic Exercise to Include: Strength training, Passive ROM and Active ROM For the Purpose of:: To decrease pain, To increase ROM, To improve muscle performance and motor function, To increase tolerance to activity/condition/position, To improve performance and independence with ADL's, To improve ability of physical actions for home/community/work/leisure, To improve health of tissue, To decrease soft tissue restriction, To increase flexibility/ROM and To assume or resume ADL's Manual Therapy Techniques to Include: Passive ROM For the Purpose of:: To decrease pain, To increase ROM, To improve health of tissue and To decrease soft tissue restriction Last Seen Last Seen: This patient was last seen in our office . Pertinent comments regarding their Physical therapy will appear below: Patient was seen for PT subscapularis repair doing well . Met goals with ROM and strength At this point I will be discontinuing this patient from physical therapy. I would be happy to see this patient again in the future if found appropriate by the physician. Thank you! Mina Triana, PT, Cert MDT, OCS Balance/Gait/Functional tests Balance/Special Test Scores Quick DASH Score: 29.5456
== END 2024-03-31 19:00 | disposition home or self-care (01) ==
LOC: PT 10:00
PROVIDERS: PCP Internal Medicine; Referring Provider Orthopaedic Surgery; Visit Provider Orthopaedic Surgery
DX: S46.812D Strain of other muscles, fascia and tendons at shoulder and upper arm level, left arm, subsequent encounter (principal)
CPT/HCPCS: 97110; 97140; 97162; 97530

== ENCOUNTER → 2025-04-08 | Outpatient (CLI) | payer MEDICARE, OTHER, SELFPAY ==
--- NOTE | 2025-04-08 10:42 | RAD_ITS ---
PROCEDURE: ABDOMEN SINGLE VIEW 04/08/2025 REASON FOR EXAM: DORSALGIA/HX OF URINARY CALCULI TECHNIQUE: ABDOMEN SINGLE VIEW COMPARISON: 03/03/2023 FINDINGS: Normal gastrointestinal gas pattern seen. Mild stool noted in large bowel loops. No pneumoperitoneum. Visualized bones appear unremarkable. No pathological abdominal calcifications noted. RAD/Abdomen Single View IMPRESSION: Non-obstructive bowel gas pattern. No obvious renal stones. Reading [facility]
--- OUTSIDE RECORDS SUMMARY | 2025-04-08 20:45 | XMS RPT_ITS | CCD ---
Author Organization [facility] ion [facility] Care Team Providers Care Radial Drill Press Set Up Operator Name Role Phone Tess Krause DO Unavailable Wind Operations Supervisor, System Unavailable Unavailable Louisa Haley Unavailable Unavailable Melvi White Unavailable Unavailable Lauro LYNN, Jannet Blankenship Unavailable Unavailable Unavailable [facility], Located [facility] Unavailable Pilar Johnson LPN Unavailable Unavailable Unavailable Unavailable Dr. Nicolas Chamorro DO Unavailable Slarb REHABILITATION PHYSICIAN, [place] Unavailable Unavailable Aniya Warren MA Unavailable Unavailable Gravius MANAGER CONTRACT, Dena Unavailable Unavailable Tess Krause DO Attending Unavailable Tess Krause DO Consulting Unavailable Manchak MANAGER CONTRACT, Jackie Unavailable Unavailable Ty MANAGER CONTRACT, Kayela Unavailable Unavailable Unavailable Primary Care Provider Unavaildinora Brown REHABILITATION PHYSICIAN, Efrain Unavailable Unavailable Dr. Tess Krause Primary Care Provider Dr. Ana Conroy Attending Provider Tess Krause Primary Care Unavailable Mansoor Pete Attending Unavailable Mansoor Pete Referring Unavailable Ganga Coronado Attending Unavailable Tess Krause Primary Care Unavailable Allergies Allergy Classification Reported Allergen(s) Allergy Type Date of Onset Reaction(s) Facility Shellfish (9 sources) Shellfish; Translations: [Shellfish] Food Allergy [facility] Work Phone: Unclassified (19 sources) Iodinated Contrast; Translations: [Iodinated Contrast] Allergy to substance (finding) [facility] Work Phone: Comment on above: had reaction to the dye used when he had kidney stones. (11 sources) Shellfish; Translations: [Shellfish] Allergy to substance (finding) 10-24-19 [facility] Work Phone: (3 sources) Ciprofloxacin Drug Allergy 07-05-20 REFUSED, TOO MANY SIDE EFFECTS, TENDON DAMAGE [facility] (1 source) Contrast media; Translations: [CONTRAST DYE] Propensity to adverse reactions to drug (disorder) 10-24-19 [facility] Repository (1 source) Ciprofloxacin Drug Allergy 03-03-20 [facility] Repository Medications Current Medications Medication Drug Class(es) Dates Sig (Normalized) Sig (Original) amoxicillin 875 mg / clavulanate 125 mg oral tablet (2 sources) Penicillin-class Antibacterial Start: 03-03-2023 take 1 tablet by mouth twice daily Amoxicillin-Pot Clavulanate Active 1 TABLET PO TWICE A DAY 14 March 03, 2023 12:00am cephalexin 500 mg oral capsule (4 sources) Cephalosporin Antibacterial Start: 05-14-2023 End: 05-21-2023 take 1 capsule by mouth three times daily cephALEXin (KEFLEX) 500 mg capsule Take 1 capsule by mouth three times daily for 7 days. 21 capsule 0 05/14/2023 05/21/2023 Active Start: 07-05-2021 take 500 mg by mouth twice daily Cephalexin Active 500 MG PO TWICE A DAY July 05, 2021 12:00am Comment on above: Take 1 capsule by [facility] three times daily for 7 days. cholecalciferol 0.025 mg oral tablet (3 sources) Vitamin D Start: 06-28-20 take 1 tablet by mouth once daily Cholecalciferol (Vitamin D3) (Vitamin D3) 25 mcg (1,000 unit) Tablet Active 25 MCG PO DAILY June 28, 2021 12:00am Organ Concentrates (3 sources) Start: 06-28-20 21 take 140 mg by mouth once daily Organ Concentrates Active 140 MG PO DAILY June 28, 2021 10:39am Start: 06-28-2021 take 140 mg by mouth once daily Organ Concentrates Active 140 MG PO DAILY June 28, 2021 12:00am phenazopyridine hydrochloride 95 mg oral tablet (3 sources) Start: 06-28-2021 take 99.9 mg by mouth at bedtime Phenazopyridine Active 99.9 MG PO AT BEDTIME June 28, 2021 12:00am tadalafil 5 mg oral tablet (20 sources) Phosphodiesterase 5 Inhibitor Start: 02-22-2021 take 1 tablet by mouth once daily Tadalafil (Cialis) 5 mg Tablet Active 5 MG PO DAILY June 28, 2021 12:00am Start: 07-19-2008 take 1 tablet by jimi th once daily CIALIS, 10MG (Oral Tablet) 1 (one) Tablet qd for 0 days Quantity: 10 {Tablet} Refills: 3 Ordered: 16-Jan-2012 Melvi White Start : 19-Jul-2008 Active Comment on above: Dr. Magana RX's Completed/Discontinued Medications Medication Drug Class(es) Dates Sig (Normalized) Sig (Original) [id number] 200 actuat albuterol 0.09 mg/actuat metered dose inhaler (19 sources) beta2-Adrenergic Agonist Start: 12-05-2006 End: 06-03-2008 take 2 puff(s) by inhalation four times daily as needed PROVENTIL HFA, 108 (90 Base)MCG/ACT (Inhalation Aerosol Solution) 2 (two) Puff(s) QID/PRN for 0 days Quantity: 1 {Aerosol_Soln} Refills: 0 Ordered: 05-Dec-2006 Tracy Rios RN Start : 05-Dec-2006 End : 03-Jun-2008 Inactive azithromycin 250 mg oral tablet (10 sources) Macrolide Antimicrobial Start: 09-01-2021 End: 01-18-2023 Zithromax Z-Klever 250 mg oral tablet 1 (one) Tablet uad for 0 days Quantity: 1 {Packet} Refills: 0 Ordered: 18-Jan-2023 Jackie Anguiano CMA Start : 01-Sep-2021 End : 18-Jan-2023 Inactive bifidobacterium infantis 4 mg oral capsule (19 sources) Start: 03-11-2012 End: 02-22-2021 take 1 capsule by mouth once daily Align 4 MG Oral Capsule 1 Capsule daily for 0 days Quantity: 30 {Capsule} Refills: 6 Ordered: 22-Feb-2021 Pilar Johnson LPN Start : 11-Mar-2012 End : 22-Feb-2021 Discontinued budesonide 0.25 mg/ml inhalation suspension (10 sources) Corticosteroid Start: 09-01-2021 End: 09-15-2021 take 1 dose by inhalation twice daily Budesonide 0.5 MG/2ML Inhalation Suspension 1 (one) Vial two times daily for 14 days Quantity: 1 {Unspecified} Refills: 0 Ordered: 01-Sep-2021 Aniya Warren MA Start : 01-Sep-2021 End : 15-Sep-2021 Inactive citalopram 40 mg oral tablet (20 sources) Serotonin Reuptake Inhibitor Start: 07-03-2023 take 1 tablet by mouth once daily citalopram 40 mg oral tablet 1 (one) Tablet(s) daily for 180 days Quantity: 180 {Tablet} Refills: 3 Ordered: 03-Jul-2023 Tess Krause DO, DO, Kathleen Start : 03-Jul-2023 Active Start: 01-18-2023 take 1 tablet by jimi once daily citalopram 40 mg oral tablet 1 (one) Tablet(s) daily for 90 days Quantity: 90 {Tablet} Refills: 3 Ordered: 18-Jan-2023 Tess Krause DO, DO, Kathleen Start : 18-Jan-2023 Active Start: 06-28-2021 Citalopram (Ce colten) 40 mg Tablet Active 20 MG PO DAILY June 28, 2021 12:00am Start: 08-15-2006 End: 08-07-2007 take 1 tablet by mouth once daily CELEXA, 40MG (Oral Tablet) 1 Tablet QD for 0 days Refills: 0 Ordered: 07-Aug-2007 Tess Krause DO, DO, Kathleen Start : 15-Aug-2006 End : 07-Aug-2007 Discontinued Comments: also gave him script for 14 days until mail order arrives Comment on above: also gave him script for 14 days until mail order arrives Take one(1) tablet d aily. 24 hr clarithromycin 500 mg extended release oral tablet (19 sources) Macrolide Antimicrobial Start: End: take 2 tablets by mouth once daily BIAXIN XL PAC, 500MG (Oral Tablet Extended Release 24 Hour) 2 (two) Tablet ER 24HR Daily for 10 days Quantity: 20 {Tablet_ER_24HR} Refills: 0 Ordered: 05-Dec-2006 SUZANNE LYNN SARAH Start : 05-Dec-2006 End : 13-Jan-2007 Inactive 24 hr desvenlafaxine succinate 50 mg extended release oral tablet (19 sources) Serotonin and Norepinephrine Reuptake Inhibitor Start: 012 End: take 1 tablet by mouth once daily Pristiq 50 MG Oral Tablet Extended Release 24 Hour 1 (one) Tablet ER 24HR daily for 0 days Quantity: 90 {Tablet_ER_24HR} Refills: 3 Ordered: 22-Feb-2021 Pilar Johnson LPN Start : 16-Jan-2012 End : 22-Feb-2021 Discontinued dexamethasone 6 mg oral tablet (10 sources) Corticosteroid Start: End: take 1 tablet by mouth once daily Dexamethasone 6 MG Oral Tablet 1 (one) Tablet qd for 5 days Quantity: 5 {Tablet} Refills: 0 Ordered: 01-Sep-2021 Batool Hoang LPN Start : 01-Sep-2021 End : 06-Sep-2021 Inactive esomeprazole 40 mg delayed release oral capsule (19 sources) Proton Pump Inhibitor Start: 006 End: take 1 capsule by mouth once daily NEXIUM, 40MG (Oral Capsule Delayed Release) 1 (one) Capsule DR Daily for 0 days Refills: 0 Ordered: 07-Aug-2007 Tess Krause DO, DO, Kathleen Start : 15-Aug-2006 End : 07-Aug-2007 Discontinued Garlic preparation (20 sources) Non-Standardized Food Allergenic Extract Start: 007 GARLIC 1,500 MG CAP Take one(1) tablet daily. 0 10/24/2006 Active End: 02-22-2021 GARLIC 1500, 1500MG (PO Cap) (1500 MG) End : 22-Feb-2021 Discontinued GARLIC 1500, 150 0MG (PO Cap) (1500 MG) Active Comment on above: Take one(1) tablet d aily. lovastatin 10 mg oral tablet (19 sources) HMG-CoA Reductase Inhibitor Start: 2 End: 05-26-202 1 take 1 tablet by mouth once daily Lovastatin 10 MG Oral Tablet 1 Tablet daily for 0 days Quantity: 90 {Tablet} Refills: 3 Ordered: 22-Feb-2021 Pilar Johnson LPN Start : 26-Mar-2012 End : 22-Feb-2021 Discontinued omeprazole 40 mg delayed release oral capsule (8 sources) Proton Pump Inhibitor Start: 3 End: 3 take 1 capsule by mouth once daily omeprazole 40 mg oral capsule,delayed release (enteric coated) 1 (one) capsule qd for 0 days Quantity: 30 {Capsule} Refills: 3 Ordered: 03-Jul-2023 [facility] Start : 18-Jan-2023 End : 03-Jul-2023 Inactive pantoprazole 40 mg delayed release oral tablet (1 source) Proton Pump Inhibitor Start: 7 PROTONIX 40 MG TAB Take one(1) tablet daily. 30 3 11/14/2006 Active Comment on above: Take one(1) tablet d aily. predniSONE 20 mg oral tablet (20 sources) Start: 1 End: 3 predniSONE 20 mg oral tablet 1 (one) Tablet daily for 5 days for 0 days Quantity: 5 {Tablet} Refills: 0 Ordered: 03-Jul-2023 [facility] Start : 03-Jul-2021 End : 03-Jul-2023 Discontinued Start: 12-05-2006 End: 01-13-2007 take 3 tablets by mouth once daily PREDNISONE, 1MG (Oral Tablet) 3 (three) Tablet Daily for 5 days Quantity: 15 {Tablet} Refills: 0 Ordered: 05-Dec-2006 SARAH PALACIOS CNP Start : 05-Dec-2006 End : 13-Jan-2007 Inactive red yeast rice 600 mg oral capsule (20 sources) Start: 07-19-2008 End: 07-19-2008 take 1 capsule by mouth twice daily RED YEAST RICE EXTRACT, 600MG (Oral Capsule) Capsule BID for 0 days Refills: 0 Ordered: 19-Jul-2008 Kalyn Galvin DO Start : 19-Jul-2008 End : 19-Jul-2008 Discontinued Start: 10-31-2006 RED YEAST RICE EXTRACT 600 MG CAP Take one(1) tablet daily. 0 10/31/2006 Active Comment on above: Take one(1) tablet d aily. sildenafil 50 mg oral tablet (19 sources) Phosphodiesterase 5 Inhibitor Start: 008 End: take 1 tablet by mouth once daily Viagra 50 MG Oral Tablet 1 (one) Tablet Daily for 0 days Refills: 0 Ordered: 22-Feb-2021 Pilar Johnson LPN Start : 03-Jun-2008 End : 22-Feb-2021 Discontinued simvastatin 20 mg oral tablet (19 sources) HMG-CoA Reductase Inhibitor Start: 011 End: take 1 tablet by mouth once Simvastatin 20 MG Oral Tablet 1 (one) Tablet q merary for 0 days Quantity: 30 {Tablet} Refills: 3 Ordered: 22-Feb-2021 Pilar Johnson LPN Start : 06-Nov-2010 End : 22-Feb-2021 Discontinued tamsulosin hydrochloride 0.4 mg oral capsule (19 sources) alpha-Adrenergic Jhonatan Start: 006 End: take 1 capsule by mouth every twenty-four hours FLOMAX, 0.4MG (Oral Capsule Extended Release 24 Hour) 1 (one) Capsule ER 24HR for 0 days Refills: 0 Ordered: 07-Aug-2007 Tess Krause DO, DO, Kathleen Start : 15-Aug-2006 End : 07-Aug-2007 Discontinued 24 hr venlafaxine 75 mg extended release oral capsule (19 sources) Serotonin and Norepinephrine Reuptake Inhibitor Start: 012 End: take 1 capsule by mouth once daily Effexor XR 75 MG Oral Capsule Extended Release 24 Hour 1 Capsule ER 24HR daily for 0 days Quantity: 30 {Capsule_ER_24HR} Refills: 6 Ordered: 22-Feb-2021 Pilar Johnson LPN Start : 11-Mar-2012 End : 22-Feb-2021 Discontinued Comments: Generic please Comment on above: Generic please Problems Active Problems Problem Classification Problem Date Documented Date Episodic/Chronic Abdominal pain (12 sources) Acute abdominal pain; Translations: [Abdominal pain, acute] Resolved: 3 03-13-2023 Episodic Anxiety disorders (20 sources) Anxiety state; Translations: [Other anxiety states] 08-16-2015 Chronic Cardiac dysrhythmias (20 sources) Palpitations; Translations: [Palpitations] Resolved: 3 08-23-2015 Episodic Chronic obstructive pulmonary disease and bronchiectasis (20 sources) Bronchitis; Translations: [Bronchitis] Resolved: 9 02-22-2021 Episodic Conditions associated with dizziness or vertigo (20 sources) Dizziness and giddiness; Translations: [Dizziness and giddiness] 08-15-2015 Episodic Diabetes mellitus without complication (20 sources) Impaired fasting glycemia; Translations: [Impaired fasting glucose] Resolved: 1 01-16-2012 Episodic Comment on above: told to watch carbs, repeat in 6 wksborderline borderline Disorders of lipid metabolism (20 sources) Hypercholesterolemia; Translations: [Hypercholesteremia] 07-05-2015 Chronic Comment on above: pt wants to call dr Torres and see if can get infusion again he diddnt tolerate many statins in past -- couldn walk muscle aches were so bad Diverticulosis and diverticulitis (14 sources) Diverticulitis of intestine; Translations: [Diverticulitis of intestine, part unspecified, without perforation or abscess without bleeding] 03-03-2023 Chronic Comment on above: descending colon Esophageal disorders (20 sources) Gastroesophageal reflux disease; Translations: [GERD (gastroesophageal reflux disease)] 07-05-2015 Chronic Esophageal disorders (1 source) Esophagitis; Translations: [Esophagitis, unspecified] 11-07-2006 Episodic Genitourinary symptoms and ill-defined conditions (20 sources) Blood in urine; Translations: [Hematuria] Resolved: 3 01-16-2012 Episodic Hyperplasia of prostate (20 sources) Benign prostatic hypertrophy without outflow obstruction; Translations: [BPH without urinary obstruction] 08-19-2015 Chronic Comment on above: didnt tolerate floma x - so using cialis now Immunizations and screening for infectious disease (20 sources) Needs influenza immunization; Translations: [Need for prophylactic vaccination and inoculation against influenza] 07-05-2015 Episodic Nonspecific chest pain (20 sources) Chest pain; Translations: [Chest pain] Resolved: 2 02-22-2021 Episodic Open wounds of extremities (1 source) Laceration of left middle finger; Translations: [Laceration without foreign body of left middle finger without damage to nail, initial encounter] 05-14-2023 Episodic Other bone disease and musculoskeletal deformities (10 sources) Costal chondritis; Translations: [Costochondritis] 07-03-2023 Episodic Comment on above: nsaid prn Other circulatory disease (20 sources) Elevated blood-pressure reading without diagnosis of hypertension; Translations: [Elevated blood pressure (not hypertension)] Resolved: 1 08-16-2015 Episodic Other connective tissue disease (20 sources) Trochanteric bursitis; Translations: [Greater trochanteric bursitis of both hips] 02-22-2021 Episodic Other connective tissue disease (20 sources) Hand pain; Translations: [Hand pain] Resolved: 3 02-22-2021 Episodic Other endocrine disorders (20 sources) Disorder of endocrine testis; 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 Other endocrine disorders (20 sources) Other testicular dysfunction Chronic Other gastrointestinal disorders (20 sources) Irritable bowel syndrome; Translations: [Irritable bowel syndrome] 03-26-2012 Chronic Comment on above: pt has been on prist ique for IBS, switching to citalopram consider Align Other gastrointestinal disorders (20 sources) Dysphagia; Translations: [Dysphagia (787.2) (Renamed from SYMPTOMS INVOLVING DIGESTIVE SYSTEM, DYSPHAGIA)] Resolved: 2 02-22-2021 Episodic Other lower respiratory disease (20 sources) Wheezing; Translations: [Wheezing] Resolved: 9 02-22-2021 Episodic Other lower respiratory disease (20 sources) Cough; Translations: [Cough] Resolved: 3 09-01-2021 Episodic Other lower respiratory disease (20 sources) Hypoxia; Translations: [Hypoxia] Resolved: 3 09-01-2021 Episodic Other lower respiratory disease (20 sources) Dyspnea; Translations: [SOB (shortness of breath)] Resolved: 3 09-01-2021 Episodic Other non-traumatic joint disorders (20 sources) Joint pain; Translations: [Pain in unspecified joint (Renamed from Arthralgia)] Resolved: 3 02-22-2021 Episodic Other nutritional; endocrine; and metabolic disorders (20 sources) Body mass index 30+ - obesity; Translations: [BMI 30.0-30.9,adult] Resolved: 3 02-22-2021 Chronic Other nutritional; endocrine; and metabolic disorders (20 sources) Overweight in adulthood with body mass index of 25 or more but less than 30; Translations: [BMI 29.0-29.9,adult] 01-18-2023 Episodic Other screening for suspected conditions (not mental disorders or infectious disease) (20 sources) Blood chemistry abnormal; Translations: [Abnormal blood chemistry] Resolved: 3 07-05-2015 Episodic Comment on above: low WBC repeating ?myocardial ischemia dr magana follows Residual codes; unclassified (20 sources) Family history of diabetes mellitus; Translations: [Family history of diabetes mellitus] 01-16-2012 Episodic Residual codes; unclassified (20 sources) Family history of diabetes mellitus Episodic Residual codes; unclassified (20 sources) Non-smoker; Translations: [Non-smoker] 02-22-2021 Episodic Residual codes; unclassified (10 sources) Influenza vaccination declined; Translations: [Influenza vaccination declined (Renamed from Refused influenza vaccine)] 07-03-2023 Episodic Spondylosis; intervertebral disc disorders; other back problems (18 sources) Prolapsed lumbar intervertebral disc; Translations: [Lumbar herniated disc] 07-03-2021 Chronic Comment on above: L5&S1 displacing L5 nerve root Spondylosis; intervertebral disc disorders; other back problems (20 sources) Sciatica; Translations: [Left sciatic nerve pain] Resolved: 3 07-28-2021 Episodic Comment on above: failed nsaid , physi ajay therapy for 2mo, chiropractor care and massage therpay Unclassified (20 sources) Unclassified (20 sources) Anxiety state, unspecified (300.00) Unclassified (20 sources) Hypercholesteremia (272.0) Unclassified (20 sources) BPH without Urin. Obst (600.00) Unclassified (11 sources) BRONCHITIS, NOT SPECIFIED ACUTE OR CHRONIC (490.) Past or Other Problems Problem Classification Problem Date Documented Da te Episodic/Chronic Coronary atherosclerosis and other heart disease (11 sources) Coronary atherosclerosis and other heart disease Spondylosis; intervertebral disc disorders; other back problems (2 sources) Spondylosis; intervertebral disc disorders; other back problems Unclassified (20 sources) Abnormal blood chemistry (790.6) Unclassified (11 sources) Abnormal Cardiac Test (794.30) Unclassified (11 sources) Elevated Blood Pressure(796.2) Unclassified (11 sources) Symptom, Palpitations (785.1) Unclassified (20 sources) SCREENING FOR CANCER OF THE PROSTATE (V76.44) Unclassified (19 sources) Unspecified Diagnosis Unclassified (11 sources) SPECIAL SCREENING FOR MALIGNANT NEOPLASMS OF THE RECTUM (V76.41) Unclassified (20 sources) Dysphagia (787.2) (Renamed from SYMPTOMS INVOLVING DIGESTIVE SYSTEM, DYSPHAGIA (787.2)) Unclassified (11 sources) Well Male Exam (V70.0) Unclassified (11 sources) SYMPTOMS INVOLVING URINARY SYSTEM, URINARY FREQUENCY (788.41) Unclassified (18 sources) Non-Contributory Problem List/Past Medical History; Translations: [Non-Contributory Problem List/Past Medical History] 02-22-2021 Unclassified (20 sources) Non-smoker Unclassified (20 sources) BMI 30.0-30.9,adult Unclassified (10 sources) Elevated blood pressure (not hypertension) Unclassified (13 sources) Hypercholesteremia Unclassified (10 sources) Greater trochanteric bursitis of both hips Unclassified (10 sources) Screening for prostate cancer Unclassified (10 sources) Encounter for hepatitis C virus screening test for high risk patient Unclassified (2 sources) Pre-operative clearance Unclassified (2 sources) Left sciatic nerve pain Unclassified (2 sources) Sacroiliac pain Results Test Name Value Interpretation Reference Range Facility Foot 2 Viewson 12-24-2024 Foot 2 Views [facility] Imaging Services [address] [place] [address] Foot 2 Views MR#: [id number] Acct: [id number] Name: PANKAJ ESQUEDA Rep #: [id number] : 1955 M 69 From: Zack Webb MD PCP: Dr. Tess Krause, DO Status: DEP AMB Study: Foot 2 Views Date of Exam: 12/24/24 Exam# [id number] Ordering Dr: Tess Krause DO EXAM: Diagnostic foot two views CLINICAL HISTORY: Chronic pain in joints, no injury COMPARISON: None available TECHNIQUE: AP and lateral view of the right foot FINDINGS: Mild joint space narrowing and lateral marginal osteophyte spurring, [id number] spurring dorsal metatarsal head 1st metatarsophalangeal joint. Developmental osseous fusion of the middle and distal phalanx of the 5th ray. Small enthesophyte formation at the plantar surface of the calcaneus. Vascular calcifications noted. No fracture or dislocation. Suggestion of soft tissue swelling dorsal forefoot. RAD/Foot 2 Views IMPRESSION: [id number] appearing osteoarthrosis of the 1st metatarsophalangeal joint. Suggestion of soft tissue swelling dorsal forefoot. Reading Location: [facility] CC: Dr. Tess Krause DO Adoption Counselor: Signed [facility] Foot 2 Views [facility] Imaging Services [address] [place] [address] Foot 2 Views MR#: [id number] Acct: [id number] Name: PANKAJ ESQUEDA Rep #: [id number] : 1955 M 69 From: Zack Webb MD PCP: Dr. Tess Krause DO Status: DEP AMB Study: Foot 2 Views Date of Exam: 12/24/24 Exam# [id number] Ordering Dr: Tess Krause DO EXAM: Diagnostic foot two-view CLINICAL HISTORY: Chronic pain and joints, no injury COMPARISON: None available TECHNIQUE: AP and lateral view of the left foot FINDINGS: There is moderate joint space narrowing of the 1st metatarsophalangeal joint and moderate lateral marginal osteophyte formation, spurring. Developmental osseous fusion of the middle and distal phalanx of the 5th ray. No fracture or dislocation. Small enthesophyte formation at the Achilles and plantar surfaces of the calcaneus. Vascular calcification noted. RAD/Foot 2 Views IMPRESSION: Moderate 1st metatarsophalangeal joint osteoarthrosis as above. Reading Location: [facility] CC: Dr. Tess Krause DO Adoption Counselor: Signed [facility] Hand 2 Viewson 12-24-2024 Hand 2 Views [facility] Services [address] [place], [place] [id number] Hand 2 Views MR#: [id number] Acct: [id number] Name: PANKAJ ESQUEDA GENE Rep #: [id number] : 1955 M 69 From: Zack Webb MD PCP: Dr. Tess Krause, Status: DEP AMB Study: Hand 2 Views Date of Exam: 12/24/24 Exam# [id number] Ordering Dr: Tess Krause DO PROCEDURE: HAND 2 VIEWS 12/24/2024 REASON FOR EXAM: CHRONIC PAIN IN JOINTS, NO INJURY TECHNIQUE: 2 view(s) of the right hand COMPARISON: 02/22/2021 FINDINGS: No significant interval change in appearance of the right hand since 2020. Mild appearing osteoarthrosis at the 5th DIP joint again noted. The joint spaces otherwise appear within limits. No fracture or dislocation. No osseous lesion seen. RAD/Hand 2 Views IMPRESSION: No significant interval change in appearance of the right hand since 2020. Reading Location: [facility] CC: Dr. Tess Krause, Adoption Counselor: Signed [facility] Hand 2 Views [facility] Imaging Services [address] [place], [place] [address] Hand 2 Views MR#: [id number] Acct: [id number] Name: PANKAJ ESQUEDA GENE Rep #: [id number] : 1955 M 69 From: Zack Webb MD PCP: Dr. Tess Krause, Status: DEP AMB Study: Hand 2 Views Date of Exam: 12/24/24 Exam# [id number] Ordering Dr: Tess Krause DO PROCEDURE: HAND 2 VIEWS 12/24/2024 REASON FOR EXAM: CHRONIC PAIN IN JOINTS, NO INJURY TECHNIQUE: 2 view(s) of the left hand COMPARISON: 02/22/2021 FINDINGS: No significant interval change in appearance of the left hand since 2020. No significant appearing osteoarthrosis. The joint spaces appear within limits. No fracture or dislocation. No osseous lesion identified. RAD/Hand 2 Views IMPRESSION: No significant interval change in appearance of the left hand since 2020. Reading Location: [facility] CC: Dr. Tess Krause DO Adoption Counselor: Signed [facility] Hospital Re-Evaluation - PT (1)on Re-Evaluation - PT (1) [facility] [address] [place] [address] / REEVALUATION / MEDICARE RECERTIFICATION PHYSICAL THERAPY MR#: [id number] Acct: [id number] Name: PANKAJ ESQUEDA Rep #: [id number] : 1955 68 From: Mina Triana PT, Cert. T, OCS Referring Dr.: Dr. Mansoor Pete MD Status:REG RCR Insurance: MEDICARE PART A B AARP Re-Evaluation Intro: Dr. Mansoor Pete MD, It has been my pleasure to treat PANKAJ ESQUEDA over the last 10 visits for FULL THICKNESS TEAR OF LEFT SUBSCAPULARIS TENDON. Please see the progress note below for an update on the physical therapy plan of care! Subjective Subjective: Doing well Objective Objective/Function: * Patient will cont to benefit from skilled PT with ROM improving and progressing to next phase and all goals are appropriate* AAROM shoulder flexion 145 degrees ,ER 45 degrees ,no pain AROM: shoulder flexion 115 degrees ,abduction in scaption 105 degrees MMT: ( peak force) infraspinatus 8.1 .subscapularis 7.9 ,supraspinatus 5.3,deltoid 3.3 Plan Plan Plan: s/p RTC REPAIR OF SUBSCAPULARIS 12/25 s/p 9WEEKS ON 02/26 (PROGRSS TO NEXT PHASE) SEE PROTOCOL FOR POGRESSION PT INTERVENTIONS PHASE 1 4-6WEEKS (PROM) SHOULDER FLEXION 90 DEGREES, PHASE 2 AAROM (6-8 WEEKS), AAROM 8-10 WEEKS, PHASE 3 RESISTED, MANUAL THERAPY, CP/MHP Balance/Gait/Functional tests Balance/Special Test Scores Quick DASH Score: 29.5450 Goals Goals Goal 1:: Patient to be I with HEP protocol with subscapularis repair Goal Time Frame: 8-12 Weeks Goal Progress: Progressing Goal 2:: Patient to demonstrate 75% improvement with improved function and less pain Goal Time Frame: 8-12 Weeks Goal Progress: Progressing Goal 3:: Patient to improve AROM shoulder flexion/abduction 150 degrees and ER 80 degrees to improve ADLS and housework tasks Goal Time Frame: 8-12 Weeks Goal Progress: Progressing Goal 4:: Patient to improve peak force RTC /deltoid by 15-20# strength to improve function. Goal Time Frame: 8-12 Weeks Goal Progress: Progressing Goal 5:: Patient to improve quick dash by 5-10 points to improve QOL,and function Goal Time Frame: 8-12 Weeks Goal Progress: Progressing Anticipated Interventions Anticipated Interventions Patient/Client Instruction: Educate patient on: Condition and Plan of Care For the Purpose of:: To decrease pain, To increase ROM, To increase oxygenation perfusion, To improve ability to perform ADL's, To increase tolerance to activity/condition/posi tion, To improve performance and independence with ADL's, To improve ability of physical actions for home/community/work/lei sure, To improve health of tissue, To decrease soft tissue restriction, To increase flexibility/ROM and To improve tolerance to ADL's Therapeutic Exercise to Include: Strength training, Passive ROM and Active ROM Comment: SEE PROTOCAL For the Purpose of:: To decrease pain, To increase ROM, To improve muscle performance and motor function, To increase tolerance to activity/condition/posi tion, To improve performance and independence with ADL's, To improve ability of physical actions for home/community/work/lei sure, To improve health of tissue, To decrease soft tissue restriction, To increase flexibility/ROM and To assume or resume ADL's Manual Therapy Techniques to Include: Passive ROM For the Purpose of:: To decrease pain, To increase ROM, To improve health of tissue and To decrease soft tissue restriction Re-Evaluation Ending Re-evaluation ending: Please do not hesitate to contact me at [phone] by phone or if you have questions or concerns regarding this new plan of care! Sincerely, Mina Triana PT, Cert MDT, OCS 02/27/24 1057 CC: Dr. Mansoor Pete MD; Dr. Tess Krause, DO HENNA Signed For Medicare only, by signing this I certify the plan of care. Physicians Signature Date Normal [facility] Inital Evaluation (1) - PTon 01-28-2024 Inital Evaluation (1) - PT [facility] [address] [place] [address] / REHABILITATION SERVICES INITIAL EVALUATION MR#: [id number] Acct: [id number] Name: PANKAJ ESQUEDA Rep #: [id number] : 1955 68 From: Tate Wayne PT. T, OCS Referring Dr.: Dr. Mansoor Pete MD Status: [facility] Insurance: MEDICARE PART A B AARP Patient's Visit Information Visit Information Visit Information: PANKAJ ESQUEDA is a 68 year old M referred to Physical Therapy by Dr. Mansoor Pete MD with a diagnosis of FULL THICKNESS TEAR OF LEFT SUBSCAPULARIS TENDON. Date of Evaluation: 01/28/24 Physical Therapist: Mina Triana PT, Cert T, OCS Visit Plan Frequency: 2x /Week Duration: 12WEEKS Plan: s/p RTC REPAIR OF SUBSCAPULARIS 12/25 SLING 8 WEEKS SEE PROTOCOL FOR POGRESSION PT INTERVENTIONS PHASE 1 4-6WEEKSS (PROM ) SHOULDER FLEXION 90 DEGREES ,PHASE 2 AAROM ( 6-8 WEEKS ) , AAROM 8-10 WEEKS ,PHASE 3 RESISTED Subjective Subjective: This 68 y/o male presents to physical therapy with s/p left shoulder arthroscopic RTC repair subscapularis tendon on 12/26/[address] Pete at [facility] and D/C DOS with sling and no PT for 4 weeks . Patient had pain block. Sling on for 8 weeks . Plan to F/U with 02/19 . Patient initially fell in [facility] landed arm extended. Patient seen DR Mercahnt did MRI ,but decided to see DR Pete who did surgery. Patient drive Motor home. Patient has limitations with all ADLS and self hygiene . Patient is right hand dominant. C/O 4th-5th paresthesia. Patient sleep is affected by pain. Patient goals to return to prior level of function. SOCAIL : VOCATION: retired Pain Left Shoulder: Pain Intensity (Out of 10): 2 Pain Intensity Range: 10 Objective Objective: POSTURE: mild forward posture ,sling intact ( 8 weeks) INCISION: well approximate small ports NEURO: c/o paresthesia/tingling 4th-5th fingers PROM: shoulder flexion to 90 degrees ( only per protocol) MMT: ( peak force) not tested Balance/Special Test Scores Quick DASH Score: 63.6350 Goals Goal 1:: Patient to be I with HEP protocol with subscapularis repair Goal Time Frame: 8-12 Weeks Goal 2:: Patient to demonstrate 75% improvement with improved function and less pain Goal Time Frame: 8-12 Weeks Goal 3:: Patient to improve AROM shoulder flexion/abduction 150 degrees and ER 80 degrees to improve ADLS and housework tasks Goal Time Frame: 8-12 Weeks Goal 4:: Patient to improve peak force RTC /deltoid by 15-20# strength to improve function. Goal Time Frame: 8-12 Weeks Goal 5:: Patient to improve quick dash by 5-10 points to improve QOL,and function Goal Time Frame: 8-12 Weeks Rehabilitation Potential Physical Therapy Diagnosis: This patient underwent RTC repair subscapularis 12/25 with decrease ROM ,weakness ,some pain and limitations with all functional activities /ADLS and hobbies thus benefit from skilled PT . Rehabilitation Potential: Good Anticipated Interventions Patient/Client Instruction: Educate patient on: Condition and Plan of Care For the Purpose of:: To decrease pain, To increase ROM, To increase oxygenation perfusion, To improve ability to perform ADL's, To increase tolerance to activity/condition/posi tion, To improve performance and independence with ADL's, To improve ability of physical actions for home/community/work/lei sure, To improve health of tissue, To decrease soft tissue restriction, To increase flexibility/ROM and To improve tolerance to ADL's Therapeutic Exercise to Include: Strength training, Passive ROM and Active ROM Comment: SEE PROTOCAL For the Purpose of:: To decrease pain, To increase ROM, To improve muscle performance and motor function, To increase tolerance to activity/condition/posi tion, To improve performance and independence with ADL's, To improve ability of physical actions for home/community/work/lei sure, To improve health of tissue, To decrease soft tissue restriction, To increase flexibility/ROM and To assume or resume ADL's Manual Therapy Techniques to Include: Passive ROM For the Purpose of:: To decrease pain, To increase ROM, To improve health of tissue and To decrease soft tissue restriction Text: Thank you for the opportunity to evaluate your patient. For Medicare and Medicare HMO plans, please review the plan of care and approve it. It will need to be FAXED BACK to us at [phone] for Medicare purposes. For Medicare only, by signing this I certify the plan of care. Please let me know if there are questions or concerns regarding this plan of care. Physician Signature: Date: 01/29/24 1200 CC: Dr. Mansoor Pete MD; Dr. Tess Krause DO HENNA Signed Normal [facility] CBC W/AUTO DIFF WBC (41109)O rdered By: Curriculum Development Specialist on 07-03-2023 Basophils (Bld) [#/Vol] 0.0 10*3/uL Normal 0.0-0.2 [facility]; [facility] Work Phone: Comment on above: A courtesy copy of t his report has been sent to [phone] WAS FASTINGPERFORMED BY: [email or web address] Rqhxyg1940 [facility] [id number] Basophils/100 WBC (Bld) 1 % Normal [facility]; [facility] Work Phone: Comment on above: A courtesy copy of t his report has been sent to [phone] WAS FASTINGPERFORMED BY: Pleylin6370 [facility] [id number] Eosinophils (Bld) [#/Vol] 0.0 10*3/uL Normal 0.0-0.4 [facility]; [facility] Work Phone: Comment on above: A courtesy copy of t his report has been sent to [phone] WAS FASTINGPERFORMED BY: NIKHIL [employer] Nybxpo2273 [facility] [id number] Eosinophils/100 WBC (Bld) 1 % Normal [facility]; [facility] Work Phone: Comment on above: A courtesy copy of t his report has been sent to [phone] WAS FASTINGPERFORMED BY: [facility] Dbroyl0652 [facility] [id number] Erythrocyte distribution width (RBC) [Ratio] 13.9 % Normal 11.6-15.4 [facility]; [facility] Work Phone: Comment on above: A courtesy copy of t his report has been sent to [phone] WAS FASTINGPERFORMED BY: NIKHIL [employer] Oxyvso2630 [facility] [id number] Hematocrit (Bld) [Volume fraction] 44.6 % Normal 37.5-51.0 [facility]; [facility] Work Phone: Comment on above: A courtesy copy of t his report has been sent to [phone] WAS FASTINGPERFORMED BY: NIKHIL [email or web address] Ocjhdn9448 [facility] [id number] Hemoglobin (Bld) [Mass/Vol] 15.2 g/dL Normal 13.0-17.7 [facility]; [facility] Work Phone: Comment on above: A courtesy copy of t his report has been sent to [phone] WAS FASTINGPERFORMED BY: [employer] Qscfhf5065 [facility] [id number] Immature granulocytes (Bld) [#/Vol] 0.0 10*3/uL Normal 0.0-0.1 [facility]; [facility] Work Phone: Comment on above: A courtesy copy of t his report has been sent to [phone] WAS FASTINGPERFORMED BY: NIKHIL [employer] Fwtktq9090 [facility] [id number] Immature granulocytes/100 WBC (Bld) 0 % Normal [facility]; [facility] Work Phone: Comment on above: A courtesy copy of t his report has been sent to [phone] WAS FASTINGPERFORMED BY: NIKHIL [email or web address] [facility] [id number] Lymphocytes (Bld) [#/Vol] 1.1 10*3/uL Normal 0.7-3.1 [facility]; [facility] Work Phone: Comment on above: A courtesy copy of t his report has been sent to [phone] WAS FASTINGPERFORMED BY: NIKHIL [employer] [facility] [id number] Lymphocytes/100 WBC (Bld) 30 % Normal [facility]; [facility] Work Phone: Comment on above: A courtesy copy of t his report has been sent to [phone] WAS FASTINGPERFORMED BY: NIKHIL [employer] [facility] [id number] MCH (RBC) [Entitic mass] 29.9 pg Normal 26.6-33.0 [facility]; [facility] Work Phone: Comment on above: A courtesy copy of t his report has been sent to [phone] WAS FASTINGPERFORMED BY: [employer] [facility] [id number] MCHC (RBC) [Mass/Vol] 34.1 g/dL Normal 31.5-35.[address] [facility] prehensive [facility]; [facility] Work Phone: Comment on above: A courtesy copy of t his report has been sent to [phone] WAS FASTINGPERFORMED BY: [email or web address] [facility] [id number] MCV (RBC) [Entitic vol] 88 fL Normal 79-97 [facility]; [facility] Work Phone: Comment on above: A courtesy copy of t his report has been sent to [phone] WAS FASTINGPERFORMED BY: NIKHIL [employer] Pyqhkr2052 [facility] [id number] Monocytes (Bld) [#/Vol] 0.3 10*3/uL Normal 0.1-0.9 [facility]; [facility] Work Phone: Comment on above: A courtesy copy of t his report has been sent to [phone] WAS FASTINGPERFORMED BY: NIKHIL [employer] Isjhov9358 [facility] [id number] Monocytes/100 WBC (Bld) 8 % Normal [facility]; [facility] Work Phone: Comment on above: A courtesy copy of t his report has been sent to [phone] WAS FASTINGPERFORMED BY: NIKHIL [employer] Ghhxmp5933 [facility] [id number] Neutrophils (Bld) [#/Vol] 2.3 10*3/uL Normal 1.4-7.0 [facility]; [facility] Work Phone: Comment on above: A courtesy copy of t his report has been sent to [phone] WAS FASTINGPERFORMED BY: NIKHIL [facility] Twuucp8590 [facility] [id number] Neutrophils/100 WBC (Bld) 60 % Normal [facility]; [facility] Work Phone: Comment on above: A courtesy copy of t his report has been sent to [phone] WAS FASTINGPERFORMED BY: [employer] Sdeliv7243 [facility] [id number] Platelets (Bld) [#/Vol] 211 10*3/uL Normal 150-450 [facility]; [facility] Work Phone: Comment on above: A courtesy copy of t his report has been sent to [phone] WAS FASTINGPERFORMED BY: NIKHIL [facility] Dfsbjv6321 [facility] [id number] RBC (Bld) [#/Vol] 5.08 10*6/uL Normal 4.14-5.80 [facility]; [facility] Work Phone: Comment on above: A courtesy copy of t his report has been sent to [phone] WAS FASTINGPERFORMED BY: NIKHIL Lablatrell PruittMonazq6950 [facility] [id number] WBC (Bld) [#/Vol] 3.8 10*3/uL Normal 3.4-10.8 [facility]; [facility] Work Phone: Comment on above: A courtesy copy of t his report has been sent to [phone] WAS FASTINGPERFORMED BY: NIKHIL Lablatrell PruittQqrmev9194 [facility] [id number] LIPID PANEL (89079)Ordered B y: Curriculum Development Specialist on 07-03-2023 Cholesterol [Mass/Vol] 233 mg/dL Abnormal 100-199 [facility]; [facility] Work Phone: Comment on above: A courtesy copy of t his report has been sent to [phone] WAS FASTINGPERFORMED BY: NIKHIL Lablatrell PruittXjnmow0068 [facility] [id number] Cholesterol in HDL [Mass/Vol] 64 mg/dL Normal [facility]; [facility] Work Phone: Comment on above: A courtesy copy of t his report has been sent to [phone] WAS FASTINGPERFORMED BY: NIKHIL Lablatrell PruittGhxyer0873 [place] [facility] [id number] Triglyceride [Mass/Vol] 79 mg/dL Normal 0-149 [facility]; [facility] Work Phone: Comment on above: A courtesy copy of t his report has been sent to [phone] WAS FASTINGPERFORMED BY: NIKHIL [employer]70 [facility] [id number] LIPID PANEL (68230) 14 mg/dL Normal 5-40 [facility]; [facility] Work Phone: Comment on above: A courtesy copy of t his report has been sent to [phone] WAS FASTINGPERFORMED BY: NIKHIL [email or web address] Sblfhu6648 [facility] [id number] LIPID PANEL (95643) 155 mg/dL Abnormal 0-99 [facility]; [facility] Work Phone: Comment on above: A courtesy copy of t his report has been sent to [phone] WAS FASTINGPERFORMED BY: NIKHIL [facility] Lboyem3263 [facility] [id number] LIPID PANEL (02878) 2.4 {ratio} Normal 0.0-3.6 [facility]; [facility] Work Phone: Comment on above: LDL/HDL Ratio Men Wo men 1/2 Avg.Risk 1.0 1.5 Avg.Risk 3.6 3.2 2X Avg.Risk 6.2 5.0 3X Avg.Risk 8.0 6.1 A courtesy copy of t his report has been sent to [phone] WAS FASTINGPERFORMED BY: NIKHIL [facility] Mpuemf9705 [facility] [id number] METABOLIC PANEL, COMPREHENSI VE (81023)Ordered By: Curriculum Development Specialist on 07-03-2023 Albumin [Mass/Vol] 4.3 g/dL Normal 3.9-4.9 [facility]; [facility] Work Phone: Comment on above: A courtesy copy of t his report has been sent to [phone] WAS FASTINGPERFORMED BY: NIKHIL [facility] Jvfbnp4718 [facility] [id number] Albumin/Globulin [Mass ratio] 1.8 {ratio} Normal 1.2-2.2 [facility]; [facility] Work Phone: Comment on above: A courtesy copy of t his report has been sent to [phone] WAS FASTINGPERFORMED BY: [email or web address] Cwiztb2001 [facility] [id number] ALP [Catalytic activity/Vol] 68 U/L Normal 44-121 [facility]; [facility] Work Phone: Comment on above: A courtesy copy of t his report has been sent to [phone] WAS FASTINGPERFORMED BY: NIKHIL [employer] Zamvos7193 [facility] [id number] ALT [Catalytic activity/Vol] 19 U/L Normal 0-44 [facility]; [facility] Work Phone: Comment on above: A courtesy copy of t his report has been sent to [phone] WAS FASTINGPERFORMED BY: NIKHIL [facility] Kndhzg5479 [facility] [id number] AST [Catalytic activity/Vol] 17 U/L Normal 0-40 [facility]; [facility] Work Phone: Comment on above: A courtesy copy of t his report has been sent to [phone] WAS FASTINGPERFORMED BY: NIKHIL [facility] Yfqwjf2421 [facility] [id number] Bilirubin [Mass/Vol] 0.4 mg/dL Normal 0.0-1.2 [facility] rehensive Internal Medicine; [facility] Work Phone: Comment on above: A courtesy copy of t his report has been sent to [phone] WAS FASTINGPERFORMED BY: NIKHIL [employer] Imufof6808 [facility] [id number] Calcium [Mass/Vol] 9.1 mg/dL Normal 8.6-10.2 [facility]; [facility] Work Phone: Comment on above: A courtesy copy of t his report has been sent to [phone] WAS FASTINGPERFORMED BY: NIKHIL [facility] Tshthe8318 [facility] [id number] Chloride [Moles/Vol] 106 mmol/L Normal 96-106 [facility]; [facility] Work Phone: Comment on above: A courtesy copy of t his report has been sent to [phone] WAS FASTINGPERFORMED BY: NIKHIL [facility] Wkqeba4178 [facility] [place] [id number] CO2 [Moles/Vol] 21 mmol/L Normal 20-29 [facility]; [facility] Work Phone: Comment on above: A courtesy copy of t his report has been sent to [phone] WAS FASTINGPERFORMED BY: NIKHIL [email or web address] Udmthg6712 [facility] [id number] Creatinine [Mass/Vol] 0.96 mg/dL Normal 0.76-1.[address] [facility] prehensive Internal [facility]; [facility] Work Phone: Comment on above: A courtesy copy of t his report has been sent to [phone] WAS FASTINGPERFORMED BY: NIKHIL [facility] Jurhhg0047 [facility] [id number] GFR/1.73 sq M.predicted among non-blacks MDRD (S/P/Bld) [Vol rate/Area] 86 mL/min/{1.73_m2} Normal [facility]; [facility] Work Phone: Comment on above: A courtesy copy of t his report has been sent to [phone] WAS FASTINGPERFORMED BY: NIKHIL LabParasitX6370 [facility] [id number] Globulin (S) [Mass/Vol] 2.4 g/dL Normal 1.5-4.5 [facility]; [facility] Work Phone: Comment on above: A courtesy copy of t his report has been sent to [phone] WAS FASTINGPERFORMED BY: NIKHIL [employer] Dqnmtj0594 [facility] [id number] Glucose [Mass/Vol] 89 mg/dL Normal 70-99 [facility]; [facility] Work Phone: Comment on above: A courtesy copy of t his report has been sent to [phone] WAS FASTINGPERFORMED BY: [employer] Huyemz6508 [facility] [id number] Potassium [Moles/Vol] 4.2 mmol/L Normal 3.5-5.[address] [facility] prehensive Internal [facility]; [facility] Work Phone: Comment on above: A courtesy copy of t his report has been sent to [phone] WAS FASTINGPERFORMED BY: NIKHIL [employer]70 [address] [place] [id number] Protein [Mass/Vol] 6.7 g/dL Normal 6.0-8.5 [facility]; [facility] Work Phone: Comment on above: A courtesy copy of t his report has been sent to [phone] WAS FASTINGPERFORMED BY: NIKHIL [employer]70 [address] [place] [id number] Sodium [Moles/Vol] 142 mmol/L Normal 134-144 [facility]; [facility] Work Phone: Comment on above: A courtesy copy of t his report has been sent to [phone] WAS FASTINGPERFORMED BY: NIKHIL [employer] [place] [facility] [id number] Urea nitrogen [Mass/Vol] 30 mg/dL Abnormal 8-27 [facility]; [facility] Work Phone: Comment on above: A courtesy copy of t his report has been sent to [phone] WAS FASTINGPERFORMED BY: NIKHIL [employer]70 [place] [facility] [id number] Urea nitrogen/Creatinine [Mass ratio] 31 mg/mg Abnormal 10-24 [facility]; [facility] Work Phone: Comment on above: A courtesy copy of t his report has been sent to [phone] WAS FASTINGPERFORMED BY: NIKHIL Ubimo6370 [place] [facility] [id number] TSH ([id number])Ordered By: Carlton Cardoso on 07-03-2023 TSH Qn 1.580 {uIU/mL} Normal 0.450-4.500 [facility]; [facility] Work Phone: Comment on above: A courtesy copy of t his report has been sent to [phone] WAS FASTINGPERFORMED BY: [employer]6370 [facility] [id number] Troponin I (41696)Ordered By : Curriculum Development Specialist on 07-03-2023 Troponin I (95198) 7 ng/L Normal 0-22 [facility]; [facility] Work Phone: Comment on above: In order to distingu starr acute elevations of high sensitiveTroponin from other clinical conditions, the UniversalDefinition of myocardial infarction stresses clinicalassessment and the need for serial measurements to observea rise and/or fall above the upper limit of the referenceinterval. A courtesy copy of t his report has been sent to [phone] WAS FASTINGPERFORMED BY: [employer]6370 [facility] [id number] LINDSEYOVsue 05-14-2023 CNOV Office Visit (UCWSTR ) PANKAJ ESQUEDA ([id number]) 1955 M Date Time Provider Department 05/14/23 2:15 PM ASHLEIGH ALLEN UCWSTR During your visit today, we recorded the following information about you: Temperature Pulse Respiration Blood pressure 97.2 degrees 96/minute 16/minute 160/70 Weight 76.8 kg Ashleigh Allen PA-C 05/20/2023 2:35 PM Addendum This note was created using NoteWriter. Subjective Pankaj Esqueda is a 67 year old male. HPI Patient presents with a left middle finger injury. This occurred about 18 hours ago. He had smashed his finger between a wooden board in the concrete floor. He has a laceration to the distal phalanx. He states it was still painful and his told him he needed to have it looked at so he came in for evaluation. No fever or drainage from the wound. His last tetanus shot was about a year ago per the patient. Review of Systems Musculoskeletal: Left middle finger wound All other systems reviewed and are negative. PAST MEDICAL HISTORY Diagnosis Date Dysphagia Esophagitis, unspecified Irritable bowel syndrome Pure hypercholesterolemia Current Outpatient Medications Medication Sig Dispense Refill PROTONIX 40 MG TAB Take one(1) tablet daily. 30 3 RED YEAST RICE EXTRACT 600 MG CAP Take one(1) tablet daily. 0 CELEXA 40 MG TAB Take one(1) tablet daily. 0 GARLIC 1,500 MG CAP Take one(1) tablet daily. 0 cephALEXin (KEFLEX) 500 mg capsule Take 1 capsule by mouth three times daily for 7 days. 21 capsule 0 No current facility-administered medications for this visit. PAST SURGICAL HISTORY Procedure Laterality Date COLONOSCOPY FLX DX W/COLLJ SPEC WHEN PFRMD 2003 Colonoscopy EGD TRANSORAL BIOPSY SINGLE/MULTIPLE 11/07/06 No family history on file. Social History Tobacco Use Smoking status: Never Smokeless tobacco: Never Substance Use Topics Alcohol use: Yes Objective BP 160/70 Pulse 96 Temp 36.2 ?C (97.2 ?F) Resp 16 Wt 76.8 kg (169 lb 6.4 oz) SpO2 97% Physical Exam Vitals reviewed. Constitutional: Appearance: Normal appearance. HENT: Head: Normocephalic and atraumatic. Musculoskeletal: Hands: Comments: Patient has a flap laceration to the distal phalanx of the left third digit extending to the lateral side of the nail. No nail damage. This does appear subacute with the tissue of the flap being pale and likely nonviable. No active bleeding. He is tender on palpation of the distal phalanx. No sign of tendon injury. No foreign body visualized. Skin: General: Skin is warm and dry. Neurological: Mental Status: He is alert. Assessment and Plan ASSESSMENT/PLAN: 1. Laceration of left middle finger without damage to nail, foreign body presence unspecified, initial encounter - ICD9: 883.0, ICD10: S61.213A The wound is too old to be sutured and the flap tissue appears to likely be nonviable at this point. I did copiously irrigate the wound with normal saline and Hibiclens. I placed Steri-Strips to approximate the wound. Discussed that he will need to heal by secondary intention which may take a few weeks longer than the typical sutured wound. Concern for possible fracture as well with mechanism of injury, x-ray is closed at [facility] however he will go over to [place] to have an x-ray done. I applied finger splint.. Patient's Tdap is already up-to-date per the patient. Will call on results. Abebe for infection prophylaxis sent as well. - XR DIGIT GENERAL 3V FRONTAL/LAT/OBL LEFT JOSH Oconnor-C Allergies As of Date: 05/14/2023 (No Known Allergies) Date Reviewed: 05/14/2023 Reviewed by: Mary Silveira LPN - Fully Assessed Reason for Visit: Derm Problem [33] Cmt: Left middle finger, cut with board x1 day Primary Visit Diagnosis:Laceration of left middle finger without damage to nail, foreign body presence unspecified, initial encounter [S61.693B] Order(s):XR DIGIT GENERAL 3V FRONTAL/LAT/OBL LEFT [[id number]] Order #: [id number] FUTURE cephALEXin (KEFLEX) 500 mg capsuleTake 1 capsule by mouth three times daily for 7 days.Disp: 21 capsuleRfl: 0 Prescriptions as of 05/20/2023 - cephALEXin (KEFLEX) 500 mg capsule Take 1 capsule by mouth three times daily for 7 days. - PROTONIX 40 MG TAB Take one(1) tablet daily. - RED YEAST RICE EXTRACT 600 MG CAP Take one(1) tablet daily. - CELEXA 40 MG TAB Take one(1) tablet daily. - GARLIC 1,500 MG CAP Take one(1) tablet daily. Problem List As Of Date 05/14/2023 Noted Resolved IRRITABLE COLON [K58.9] PURE HYPERCHOLESTEROLEM [E78.00] ESOPHAGITIS, UNSPECIFIED [K20.90] Prescriptions ordered this encounter Disp Refills Start End CEPHALEXIN 500 MG CAPSULE 21 c* 0 05/14/2023 05/21/2023 Route: ORAL Sig: Take 1 capsule by mouth three times daily for 7 days. Encounter Status:Closed by ASHLEIGH ALLEN on 05/14/23 Normal [facility] Absolute lymphocyte countOrd ered By: Dr. Brandon on 03-03-2023 Lymphocytes Auto (Unsp spec) [#/Vol] 1.20 10*3/uL 0.83-4.51 [facility] Basophil percentageOrdered B y: Dr. Brandon on 03-03-2023 Basophils/100 WBC (Bld) 0.4 % 0-1 [facility] Chloride [Moles/Vol] 106 mmol/L 98-107 [facility] Eosinophils/100 WBC (Bld) 0.7 % 0-5 [facility] Glucose [Mass/Vol] 102 mg/dL 74-106 [facility] Comment on above: Fasting Glucose resu lt from 100 to 125 mg/dL suggests IMPAIRED HOMEOSTASIS per A.D.A. criteria. Neutrophils (Bld) [#/Vol] 6.1 10*3/uL 2.0-7.7 [facility] Neutrophils/100 WBC (Bld) 76.1 % 47-70 [facility] Potassium [Moles/Vol] 4.6 mmol/L 3.5-5.1 [facility] Comment on above: Moderate Hemolysis, Result may be falsely increased. Sodium [Moles/Vol] 137 mmol/L 136-145 [facility] WBC (Bld) [#/Vol] 8.1 10*3/uL 4.4-11.0 [facility] Blood erythrocytes count (nu mber/volume)Ordered By: Dr. Brandon on 03-03-2023 RBC (Bld) [#/Vol] 5.34 10*6/uL 4.6-6.2 [facility] Blood hemoglobin measurement (mass/volume)Ordered By: Dr. Brandon on 03-03-2023 Hemoglobin (Bld) [Mass/Vol] 16.1 g/dL 13.0-16.5 [facility] Blood lymphocytes/100 leukoc ytesOrdered By: Dr. Brandon on 03-03-2023 Lymphocytes/100 WBC (Bld) 14.9 % 19-41 [facility] Blood monocytes/100 leukocyt esOrdered By: Dr. Brandon on 03-03-2023 Monocytes/100 WBC (Bld) 7.7 % 0-10 [facility] Blood platelet mean volumeOr dered By: Dr. Brandon on 03-03-2023 Platelet mean volume (Bld) [Entitic vol] 10.2 fL 6.2-12.0 [facility] Determination of erythrocyte mean corpuscular volume (MCV)Ordered By: Dr. Brandon on 03-03-2023 MCV (RBC) [Entitic vol] 92.5 fL 80-94 [facility] Hematocrit Auto (Bld) [Volum e fraction]Ordered By: Dr. Brandon on 03-03-2023 Hematocrit (Bld) [Volume fraction] 49.4 % 40-54 [facility] Laboratory - Chemistry and C hemistry - challengeOrdered By: Dr. Brandon on 03-03-2023 CO2 [Moles/Vol] 25.0 mmol/L 21.0-32.0 [facility] Lipase [Catalytic activity/Vol] 49 U/L 13-75 [facility] Comment on above: Please note:LIPASE r evised reference range effective 23. New Lipase methodology. Expected to produce lower values than the previous assay method. NEW Reference Range: 13 - 75 U/L Urea nitrogen/Creatinine [Mass ratio] 16.3 mg/mg 10-20 [facility] - Hematology and Cell countsOrdered By: Dr. Brandon on 03-03-2023 Erythrocyte distribution width (RBC) [Entitic vol] 45.3 fL 35.1-43.9 [facility] Erythrocyte distribution width (RBC) [Ratio] 13.4 % 11.6-14.6 [facility] Immature granulocytes/100 WBC (Bld) 0.200 % 0.0-0.9 [facility] Comment on above: IG% - Immature Granu locytes (promyelocytes, myelocytes and metamyelocytes) > 1% indicates that a LEFT SHIFT is Present. MCH (RBC) [Entitic mass] 30.1 pg 27.0-32.0 [facility] Nucleated RBC/100 WBC (Bld) [Ratio] 0 % 0-5 [facility] MCHC Auto (RBC) [Mass/Vol]Or dered By: Dr. Brandon on 03-03-2023 MCHC (RBC) [Mass/Vol] 32.6 g/dL 32-36 [facility] No Panel InformationOrdered By: Dr. Brandon on 03-03-2023 Estimated Creatinine Clearance Calc 56.92 ml/min [facility] Estimated GFR (MDRD) Amer 91 mL/min >60 [facility] Comment on above: GFR Calc Estimated GFR (MDRD) Non-Af Amer 75 mL/min >60 [facility] Comment on above: Non- GFR Calc Platelets bldOrdered By: Dr. Brandon on 03-03-2023 Platelets (Bld) [#/Vol] 268 10*3/uL 150-450 [facility] Serum or plasma calcium dennis urement (mass/volume)Ordered By: Dr. Brandon on 03-03-2023 Calcium [Mass/Vol] 9.5 mg/dL 8.5-10.1 [facility] Serum or plasma creatinine m easurement (mass/volume)Ordered By: Dr. Brandon on 03-03-2023 Creatinine [Mass/Vol] 1.04 mg/dL 0.70-1.30 [facility] Comment on above: The validity of the calculated GFR & GFRAA in patients over 70 years has not been determined. Clinical correlation is essential. Serum or plasma urea nitroge n measurement (mass/volume)Ordered By: Dr. Brandon on 03-03-2023 Urea nitrogen [Mass/Vol] 17 mg/dL 7-18 [facility] Thin prep Papanicolaou smear with manual screeningOrdered By: Dr. Brandon on 03-03-2023 Thin prep Papanicolaou smear with manual screening 6 5-15 [facility] HgA1C , Office ([id number])Ordere d By: Batool Hoang on 07-28-2021 HbA1c (Bld) [Mass fraction] 5.2 % Normal 4.6 - 7.1 [facility] Work Phone: GEO (ANTINUCLEAR ANTIBODY) ( [phone])Ordered By: Curriculum Development Specialist on 02-22-2021 Nuclear Ab Ql (S) Negative Normal Compreh ensive [facility]; [facility] Work Phone: Comment on above: PATIENT WAS FASTINGP ERFORMED BY: CB [facility] Feisgh9356 [facility] [id number] BY: BN [facility] [address] [id number] Blood Glucose , Office ([phone])Ordered By: Pilar Johnson on 02-22-2021 Glucose Glucometer (BldC) [Moles/Vol] 81 1 Normal [facility]; [facility] Work Phone: C-REACTIVE PROTEIN ([phone])Or dered By: Curriculum Development Specialist on 02-22-2021 CRP [Mass/Vol] mg/L Normal 0-[address] [facility]; [facility] Work Phone: Comment on above: PATIENT WAS FASTINGP ERFORMED BY: [facility] [employer]rp Gcqyhi8017 [facility] [id number] BY: Lab[address] [id number] CBC with auto diff ([id number])Or dered By: Curriculum Development Specialist on 02-22-2021 Basophils (Bld) [#/Vol] 0.0 10*3/uL Normal 0.0-0.2 [facility]; [facility] Work Phone: Comment on above: PATIENT WAS FASTINGP ERFORMED BY: [facility] [employer] [employer]rp Egfpoa3966 [facility] [id number] BY: [facility] [employer] [id number] Basophils/100 WBC (Bld) 1 % Normal [facility]; [facility] Work Phone: Comment on above: PATIENT WAS FASTINGP ERFORMED BY: [facility] [employer] [employer]rp Hzyrzd3691 [facility] [id number] BY: [facility] [employer] [id number] Eosinophils (Bld) [#/Vol] 0.1 10*3/uL Normal 0.0-0.4 [facility]; [facility] Work Phone: Comment on above: PATIENT WAS FASTINGP ERFORMED BY: [facility] [employer] [employer]rp Tjvxly8947 [address] [facility] [id number] BY: Lab[address] [id number] Eosinophils/100 WBC (Bld) 2 % Normal [facility]; [facility] Work Phone: Comment on above: PATIENT WAS FASTINGP ERFORMED BY: NIKHIL [facility] Pjoprk4707 [facility] [id number] BY: [address] [id number] Erythrocyte distribution width (RBC) [Ratio] 13.0 % Normal 11.6-15.4 [facility]; [facility] Work Phone: Comment on above: PATIENT WAS FASTINGP ERFORMED BY: NIKHIL [facility] Tjjtnm5972 [facility] [id number] BY: [address] [id number] Hematocrit (Bld) [Volume fraction] 44.3 % Normal 37.5-51.0 [facility]; [facility] Work Phone: Comment on above: PATIENT WAS FASTINGP ERFORMED BY: [facility] Irxefo2572 [facility] [id number] BY: [address] [id number] Hemoglobin (Bld) [Mass/Vol] 15.5 g/dL Normal 13.0-17.7 [facility]; [facility] Work Phone: Comment on above: PATIENT WAS FASTINGP ERFORMED BY: NIKHIL [facility] Mxbkta1192 [facility] [id number] BY: [address] [id number] Immature granulocytes (Bld) [#/Vol] 0.0 10*3/uL Normal 0.0-0.1 [facility]; [facility] Work Phone: Comment on above: PATIENT WAS FASTINGP ERFORMED BY: LabCoAngela Ville 9271070 [facility] [id number] BY: [address] [id number] Immature granulocytes/100 WBC (Bld) 0 % Normal [facility]; [facility] Work Phone: Comment on above: PATIENT WAS FASTINGP ERFORMED BY: [facility] Lsthzg8810 [facility] [id number] BY: [address] [id number] Lymphocytes (Bld) [#/Vol] 1.2 10*3/uL Normal 0.7-3.1 [facility]; [facility] Work Phone: Comment on above: PATIENT WAS FASTINGP ERFORMED BY: LabCoGrey[facility] Park Psychiatric HospitalOhykqe5166 [facility] [id number] BY: Lab[address] [id number] Lymphocytes/100 WBC (Bld) 38 % Normal [facility]; [facility] Work Phone: Comment on above: PATIENT WAS FASTINGP ERFORMED BY: Lab[facility]6370 [facility] [id number] BY: [address] [id number] MCH (RBC) [Entitic mass] 31.9 pg Normal 26.6-33.0 [facility]; [facility] Work Phone: Comment on above: PATIENT WAS FASTINGP ERFORMED BY: Lab[facility]6370 [facility] [id number] BY: [address] [id number] MCHC (RBC) [Mass/Vol] 35.0 g/dL Normal 31.5-35.[address] [facility] prehensive Internal [facility]; [facility] Work Phone: Comment on above: PATIENT WAS FASTINGP ERFORMED BY: LabCoG[facility] Psychiatric HospitalPsykbn0283 [facility] [id number] BY: [address] [id number] MCV (RBC) [Entitic vol] 91 fL Normal 79-97 [facility]; [facility] Work Phone: Comment on above: PATIENT WAS FASTINGP ERFORMED BY: NIKHIL [facility] Rhumzs6163 [place] [facility] [id number] BY: [facility] [address] [id number] Monocytes (Bld) [#/Vol] 0.3 10*3/uL Normal 0.1-0.9 [facility]; [facility] Work Phone: Comment on above: PATIENT WAS FASTINGP ERFORMED BY: NIKHIL [facility] Fjnrpq8868 [address] [facility] [id number] BY: BN [facility] [address] [id number] Monocytes/100 WBC (Bld) 9 % Normal [facility]; [facility] Work Phone: Comment on above: PATIENT WAS FASTINGP ERFORMED BY: NIKHIL [facility] Baaujs2522 [address] [facility] [id number] BY: [facility] [address] [id number] Neutrophils (Bld) [#/Vol] 1.6 10*3/uL Normal 1.4-7.0 [facility]; [facility] Work Phone: Comment on above: PATIENT WAS FASTINGP ERFORMED BY: NIKHIL [facility] Tzdfny2637 [place] [facility] [id number] BY: LabCo[address] [id number] Neutrophils/100 WBC (Bld) 50 % Normal [facility]; [facility] Work Phone: Comment on above: PATIENT WAS FASTINGP ERFORMED BY: CB [facility] Ovihfe2416 [address] [facility] [id number] BY: [facility] [address] [id number] Platelets (Bld) [#/Vol] 203 10*3/uL Normal 150-450 [facility]; [facility] Work Phone: Comment on above: PATIENT WAS FASTINGP ERFORMED BY: NIKHIL [facility] Pwqnkf7255 [facility] [id number] BY: [address] [id number] RBC (Bld) [#/Vol] 4.86 10*6/uL Normal 4.14-5.80 [facility]pr [facility]; [facility] Work Phone: Comment on above: PATIENT WAS FASTINGP ERFORMED BY: [place] 7413070 [facility] [id number] BY: [address] [id number] WBC (Bld) [#/Vol] 3.1 10*3/uL Abnormal 3.4-10.8 [facility]; [facility] Work Phone: Comment on above: PATIENT WAS FASTINGP ERFORMED BY: [place] 7413070 [facility] [id number] BY: [address] [id number] CCP ANTIBODY ([id number])Ordered By: Curriculum Development Specialist on 02-22-2021 Cyclic citrullinated peptide IgA+IgG IA Qn 5 {units} Normal 0-19 [facility]; [facility] Work Phone: Comment on above: Negative <20 Weak po sitive 20 - 39 Moderate positive 40 - 59 Strong positive >59 PATIENT WAS FASTINGP ERFORMED BY: [place] 7413070 [facility] [id number] BY: [address] [id number] HEPATITIS C ANTIBODY ([id number]) Ordered By: Curriculum Development Specialist on 02-22-2021 HCV Ab Signal/Cutoff IA [Rel units/Vol] {ratio} Normal 0.0-0.9 [facility]; [facility] Work Phone: Comment on above: Negative: < 0.8 Inde terminate: 0.8 - 0.9 Positive: > 0.9 . The CDC recommends that a positive HCV antibody result be followed up with a HCV Nucleic Acid Amplification test (311063). PATIENT WAS FASTINGP ERFORMED BY: CB [facility] Gbwetu3446 Diaz RoadDublin [place] [id number] BY: [address] [id number] HgA1C , Office ([id number])Ordere d By: Pilar Johnson on 02-22-2021 HbA1c (Bld) [Mass fraction] 5.4 % Normal 4.6 - 7.1 [facility]; [facility] Work Phone: LIPID PANEL (07887)Ordered B y: Curriculum Development Specialist on 02-22-2021 Cholesterol [Mass/Vol] 254 mg/dL Abnormal 100-199 [facility]; [facility] Work Phone: Comment on above: PATIENT WAS FASTINGP ERFORMED BY: CB [facility] Toncpq3075 Diaz RoadDubayshore community hospital [place] [id number] BY: [facility] [employer] [employer] [id number] Cholesterol in HDL [Mass/Vol] 57 mg/dL Normal [facility]; [facility] Work Phone: Comment on above: PATIENT WAS FASTINGP ERFORMED BY: CB [facility] Llblys2008 Diaz RoadDublin [place] [id number] BY: Lab[address] [id number] Triglyceride [Mass/Vol] 67 mg/dL Normal 0-149 [facility]; [facility] Work Phone: Comment on above: PATIENT WAS FASTINGP ERFORMED BY: CB [facility] Hozhjt7613 Diaz RoadDublin [place] [id number] BY: Lab[address] [id number] LIPID PANEL (09422) 11 mg/dL Normal 5-40 Compr ehensive [facility]; [facility] Work Phone: Comment on above: PATIENT WAS FASTINGP ERFORMED BY: CB [facility] Dixahy7297 Diaz RoadDuin [place] [id number] BY: BN [facility]Co[address] [id number] LIPID PANEL (85410) 186 mg/dL Abnormal 0-99 Compr ensive [facility]; [facility] Work Phone: Comment on above: PATIENT WAS FASTINGP ERFORMED BY: LoganAng[place] 9271070 [facility] [id number] BY: [address] [id number] LIPID PANEL (63104) 3.3 {ratio} Normal 0.0-3.6 [facility]; [facility] Work Phone: Comment on above: LDL/HDL Ratio Men Wo men 1/2 Avg.Risk 1.0 1.5 Avg.Risk 3.6 3.2 2X Avg.Risk 6.2 5.0 3X Avg.Risk 8.0 6.1 PATIENT WAS FASTINGP ERFORMED BY: [employer]70 [facility] [id number] BY: Logan[address] [id number] METABOLIC PANEL, COMPREHENSI VE (34803)Ordered By: Curriculum Development Specialist on 02-22-2021 Albumin [Mass/Vol] 4.0 g/dL Normal 3.8-4.8 [facility]; [facility] Work Phone: Comment on above: PATIENT WAS FASTINGP ERFORMED BY: [employer] Ozeefi4254 [facility] [id number] BY: [address] [id number] Albumin/Globulin [Mass ratio] 1.4 {ratio} Normal 1.2-2.2 [facility]; [facility] Work Phone: Comment on above: PATIENT WAS FASTINGP ERFORMED BY: LoganGreystone Park Psychiatric HospitalZanpur5976 [facility] [id number] BY: [address] [id number] ALP [Catalytic activity/Vol] 84 U/L Normal 48-121 [facility]; [facility] Work Phone: Comment on above: Please note refere nce interval change PATIENT WAS FASTINGP ERFORMED BY: CB [facility] Mlxafn4602 [address] [facility] [id number] BY: [address] [id number] ALT [Catalytic activity/Vol] 14 U/L Normal 0-44 [facility]; [facility] Work Phone: Comment on above: PATIENT WAS FASTINGP ERFORMED BY: CB [facility] Uqtadh7142 [address] [facility] [id number] BY: Lab[address] [id number] AST [Catalytic activity/Vol] 15 U/L Normal 0-40 [facility]; [facility] Work Phone: Comment on above: PATIENT WAS FASTINGP ERFORMED BY: CB [facility] Bckcxo5875 [facility] [id number] BY: Lab[address] [id number] Bilirubin [Mass/Vol] 0.4 mg/dL Normal 0.0-1.2 [facility]; [facility] Work Phone: Comment on above: PATIENT WAS FASTINGP ERFORMED BY: CB [facility] Hnzgxg6750 [facility] [id number] BY: Lab[address] [id number] Calcium [Mass/Vol] 9.5 mg/dL Normal 8.6-10.2 [facility]; [facility] Work Phone: Comment on above: PATIENT WAS FASTINGP ERFORMED BY: CB [facility] Vuzdmm1576 [address] [facility] [id number] BY: Lab[address] [id number] Chloride [Moles/Vol] 104 mmol/L Normal 96-106 [facility] rehensive Internal Medicine; [facility] Work Phone: Comment on above: PATIENT WAS FASTINGP ERFORMED BY: [facility] Nknctf0331 [facility] [id number] BY: Lab[address] [id number] CO2 [Moles/Vol] 24 mmol/L Normal 20-29 [facility]; [facility] Work Phone: Comment on above: PATIENT WAS FASTINGP ERFORMED BY: [facility] Vzooaq9494 [facility] [id number] BY: [facility] [employer] [id number] Creatinine [Mass/Vol] 0.89 mg/dL Normal 0.76-1.[address] [facility] prehensive Internal Medicine; [facility] Work Phone: Comment on above: PATIENT WAS FASTINGP ERFORMED BY: [facility] Srdfww8093 [facility] [id number] BY: [employer] [id number] GFR/1.73 sq M.predicted among blacks CKD-EPI (S/P/Bld) [Vol rate/Area] 103 mL/min/1.73 Normal [facility]; [facility] Work Phone: Comment on above: [facility] currently reports eGFR in compliance with the current recommendations of the National Kidney Foundation. [facility] will update reporting as new guidelines are published from the NKF-ASN Task force. PATIENT WAS FASTINGP ERFORMED BY: LoganGrey[facility] Park Psychiatric HospitalGfjucu5269 [facility] [id number] BY: [employer] [id number] GFR/1.73 sq M.predicted among non-blacks CKD-EPI (S/P/Bld) [Vol rate/Area] 89 mL/min/1.73 Normal [facility]; [facility] Work Phone: Comment on above: PATIENT WAS FASTINGP ERFORMED BY: NIKHIL [facility] Djvgdn0966 [facility] [id number] BY: Lab[address] [id number] Globulin (S) [Mass/Vol] 2.8 g/dL Normal 1.5-4.5 [facility]; [facility] Work Phone: Comment on above: PATIENT WAS FASTINGP ERFORMED BY: NIKHIL [facility] Ktkpya1412 [facility] [id number] BY: Lab[address] [id number] Glucose [Mass/Vol] 92 mg/dL Normal 65-99 [facility]; [facility] Work Phone: Comment on above: PATIENT WAS FASTINGP ERFORMED BY: [facility] Zjxbty1231 [facility] [id number] BY: [address] [id number] Potassium [Moles/Vol] 4.6 mmol/L Normal 3.5-5.[address] [facility]; [facility] Work Phone: Comment on above: PATIENT WAS FASTINGP ERFORMED BY: [facility] Umostr6736 [facility] [id number] BY: Lab[address] [id number] Protein [Mass/Vol] 6.8 g/dL Normal 6.0-8.5 [facility]; [facility] Work Phone: Comment on above: PATIENT WAS FASTINGP ERFORMED BY: CB [facility] Mxhfkw6074 [facility] [id number] BY: [address] [id number] Sodium [Moles/Vol] 139 mmol/L Normal 134-144 [facility]; [facility] Work Phone: Comment on above: PATIENT WAS FASTINGP ERFORMED BY: CB [facility] Ugrgew4294 [facility] [id number] BY: Navita[address] [id number] Urea nitrogen [Mass/Vol] 27 mg/dL Normal 8-27 [facility]; [facility] Work Phone: Comment on above: PATIENT WAS FASTINGP ERFORMED BY: CB [facility] Tdnosj0901 [facility] [id number] BY: Lab[address] [id number] Urea nitrogen/Creatinine [Mass ratio] 30 mg/mg Abnormal 10-24 [facility]; [facility] Work Phone: Comment on above: PATIENT WAS FASTINGP ERFORMED BY: [employer] [facility] Hvsewh8735 [facility] [id number] BY: Navita[address] [id number] MICROALBUMINOrdered By: Syst em Wind Operations Supervisor on 02-22-2021 Albumin DL <= 20 mg/L (U) [Mass/Vol] 46.8 ug/mL Normal [facility]; [facility] Work Phone: Comment on above: PATIENT WAS FASTINGP ERFORMED BY: CB [facility] Brqnvd5016 [facility] [id number] BY: Navita[address] [id number] Albumin/Creatinine (U) [Mass ratio] 38 {mg/g_creat} Abnormal 0-29 [facility]; [facility] Work Phone: Comment on above: Normal: 0 - 29 Moder ately increased: 30 - 300 Severely increased: >300 PATIENT WAS FASTINGP ERFORMED BY: CB [facility] Xhfplw1703 [facility] [id number] BY: [address] [id number] Creatinine (U) [Mass/Vol] 122.3 mg/dL Normal [facility]; [facility] Work Phone: Comment on above: PATIENT WAS FASTINGP ERFORMED BY: [employer]70 [facility] [id number] BY: Logan[address] [id number] PSA (PROSTATE SPECIFIC ANTIG EN) (V76.44)Ordered By: Curriculum Development Specialist on 02-22-2021 Prostate specific Ag [Mass/Vol] 1.0 ng/mL Normal 0.0-4.0 [facility]; [facility] Work Phone: Comment on above: [employer] ECLIA methodol ogy. .According to the [place] [employer], Serum PSA shoulddecrease and remain at undetectable levels after radicalprostatectomy. The AUA defines biochemical recurrence as an initialPSA value 0.2 ng/mL or greater followed by a subsequent confirmatoryPSA value 0.2 ng/mL or greater.Values obtained with different assay methods or kits cannot be usedinterchangeably. Results cannot be interpreted as absolute evidenceof the presence or absence of malignant disease. PATIENT WAS FASTINGP ERFORMED BY: NIKHIL Gaikai6370 [facility] [id number] BY: Logan[address] [id number] RHEUMATOID FACTOR-QUANT (620 12)Ordered By: Curriculum Development Specialist on 02-22-2021 Rheumatoid factor Qn [IU]/mL Normal 0.0-13.9 Comp rehensive [facility] Medicine; [facility] Work Phone: Comment on above: PATIENT WAS FASTINGP ERFORMED BY: NIKHIL Gaikai6370 [facility] [id number] BY: Logan[address] [id number] SED RATE ERYTHROCYTE (54459) Ordered By: Curriculum Development Specialist on 02-22-2021 ESR (Bld) [Velocity] 4 mm/h Normal 0-30 Comp rehensive [facility] Medicine; [facility] Work Phone: Comment on above: PATIENT WAS FASTINGP ERFORMED BY: Scoop[employer]ake6370 [facility] [id number] BY: [place] [address] [facility] [id number] TSH (THYROID STIMULATING HOR LYNDSAY) (80726)Ordered By: Curriculum Development Specialist on 02-22-2021 TSH Qn 1.850 {uIU/mL} Normal 0.450-4.500 Comprehen sive Internal Medicine; [facility] Work Phone: Comment on above: PATIENT WAS FASTINGP ERFORMED BY: [employer] Corporationlin6370 [facility] [id number] BY: [employer] [id number] Blood Glucose , Office (4486 2)Ordered By: Melvi White on 01-16-2012 Glucose Glucometer (BldC) [Moles/Vol] 92 1 Normal [facility]; [facility] Work Phone: HgA1C , Office (24736)Ordere d By: Melvi White on 01-16-2012 HbA1c (Bld) [Mass fraction] 5.6 % Normal 4.6 - 7.1 [facility]; [facility] Work Phone: URINE DARWIN CULTURE-IRENE COL C OUNT (68064)Ordered By: Curriculum Development Specialist on 01-16-2012 Bacteria identified Cx Nom (U) Final report Normal [facility]; [facility] Work Phone: Comment on above: PATIENT NOT FASTINGP ERFORMED BY: [employer] Jxdwyj1272 [facility] [id number] Information: SRC:UR Bacteria identified Cx Nom (U) NG36 Normal [facility]; [facility] Work Phone: Comment on above: No growth in 36 - 48 hours. PATIENT NOT FASTINGP ERFORMED BY: [employer] Oofznd2110 [facility] [id number] Information: SRC:UR Urinalysis, Office (47920)on 01-16-2012 Bilirubin Ql (U) Negative Normal Comprehe nsive Internal Medicine; [facility] Work Phone: Glucose Test strip (U) [Mass/Vol] Negative Normal [facility]; [facility] Work Phone: Hemoglobin Ql (U) Hemolyzed Trace Normal Co mprehensive [facility]; [facility] Work Phone: Ketones Ql (U) Negative Normal Comprehens christiano [facility]; [facility] Work Phone: Leukocyte esterase Test strip Ql (U) Negative Normal [facility]; [facility] Work Phone: Nitrite Ql (U) Negative Normal Comprehens christiano [facility]; [facility] Work Phone: pH (U) 6.5 [pH] Normal [facility]; [facility] Work Phone: Protein Ql (U) Negative Normal Comprehens christiano [facility]; [facility] Work Phone: Specific gravity (U) [Rel density] 1.025 1 Normal [facility]; [facility] Work Phone: Urobilinogen (24H U) [Mass/Time] Normal Normal [facility]; [facility] Work Phone: CBC WITH MANUAL DIFF (21068) Ordered By: Curriculum Development Specialist on 10-18-2010 Basophils (Bld) [#/Vol] 0.0 10*3/uL Normal 0.0-0.2 [facility]; [facility] Work Phone: Comment on above: PATIENT WAS FASTINGP ERFORMED BY: NIKHIL Logan Mkfigg6995 [facility] [id number] Basophils/100 WBC (Bld) 1 % Normal 0-3 [facility]; [facility] Work Phone: Comment on above: PATIENT WAS FASTINGP ERFORMED BY: NIKHIL Gaikai6370 [facility] [id number] Eosinophils (Bld) [#/Vol] 0.1 10*3/uL Normal 0.0-0.4 [facility]; [facility] Work Phone: Comment on above: PATIENT WAS FASTINGP ERFORMED BY: NIKHIL [facility]6370 [facility] [id number] Eosinophils/100 WBC (Bld) 3 % Normal 0-7 [facility]; [facility] Work Phone: Comment on above: PATIENT WAS FASTINGP ERFORMED BY: [facility]St[facility] Rytyzl6809 [facility] [id number] Erythrocyte distribution width (RBC) [Ratio] 13.4 % Normal 11.7-15.0 [facility]; [facility] Work Phone: Comment on above: PATIENT WAS FASTINGP ERFORMED BY: Lab[facility]6370 [facility] [id number] Hematocrit (Bld) [Volume fraction] 47.9 % Normal 36.0-50.0 [facility]; [facility] Work Phone: Comment on above: PATIENT WAS FASTINGP ERFORMED BY: Su[facility]6370 [facility] [id number] Hemoglobin (Bld) [Mass/Vol] 16.0 g/dL Normal 12.5-17.0 [facility]; [facility] Work Phone: Comment on above: PATIENT WAS FASTINGP ERFORMED BY: [facility]St. [facility] Gwwdrq5429 [facility] [id number] Immature granulocytes (Bld) [#/Vol] 0.0 10*3/uL Normal 0.0-0.1 [facility]; [facility] Work Phone: Comment on above: PATIENT WAS FASTINGP ERFORMED BY: Lab[facility]6370 [facility] [id number] Immature granulocytes/100 WBC (Bld) 0 % Normal 0-1 [facility]; [facility] Work Phone: Comment on above: PATIENT WAS FASTINGP ERFORMED BY: Lab[facility]6370 [facility] [id number] Lymphocytes (Bld) [#/Vol] 1.7 10*3/uL Normal 0.7-4.5 [facility]; [facility] Work Phone: Comment on above: PATIENT WAS FASTINGP ERFORMED BY: CB [facility] Dpbjpk1756 Diaz RoadDublin [place] [id number] Lymphocytes/100 WBC (Bld) 47 % Abnormal 14-46 [facility]; [facility] Work Phone: Comment on above: PATIENT WAS FASTINGP ERFORMED BY: CB [facility] Nmopfu7492 Diaz RoadDublin [place] [id number] MCH (RBC) [Entitic mass] 30.0 pg Normal 27.0-34.0 [facility]; [facility] Work Phone: Comment on above: PATIENT WAS FASTINGP ERFORMED BY: CB [facility] Ylohdg2791 Diaz RoadDublin [place] [id number] MCHC (RBC) [Mass/Vol] 33.4 g/dL Normal 32.0-36.[address] [facility]; [facility] Work Phone: Comment on above: PATIENT WAS FASTINGP ERFORMED BY: CB [facility] Jgyvje0072 Diaz RoadDublin [place] [id number] MCV (RBC) [Entitic vol] 90 fL Normal 80-98 [facility] Medicine; [facility] Work Phone: Comment on above: PATIENT WAS FASTINGP ERFORMED BY: CB [facility] Hwcxbg4107 [address] RoadDublin [place] [id number] Monocytes (Bld) [#/Vol] 0.2 10*3/uL Normal 0.1-1.0 [facility]; [facility] Work Phone: Comment on above: PATIENT WAS FASTINGP ERFORMED BY: CB [facility] Gfxinm0558 Diaz RoadDublin [place] [id number] Monocytes/100 WBC (Bld) 6 % Normal 4-13 [facility]; [facility] Work Phone: Comment on above: PATIENT WAS FASTINGP ERFORMED BY: CB [facility] Abgjcw9947 Diaz RoadDublin [place] [id number] Neutrophils (Bld) [#/Vol] 1.6 10*3/uL Abnormal 1.8-7.8 [facility]; [facility] Work Phone: Comment on above: PATIENT WAS FASTINGP ERFORMED BY: NIKHIL Nolen6370 [facility] Hospitalblin [place] [id number] Neutrophils/100 WBC (Bld) 43 % Normal 40-74 [facility]; [facility] Work Phone: Comment on above: PATIENT WAS FASTINGP ERFORMED BY: NIKHIL LabLatrell Nolen6370 [address] RoadAngel Medical Centerin [place] [id number] Platelets (Bld) [#/Vol] 241 10*3/uL Normal 140-415 [facility]; [facility] Work Phone: Comment on above: PATIENT WAS FASTINGP ERFORMED BY: NIKHIL Nolen6370 [facility] Hospitalin [place] [id number] RBC (Bld) [#/Vol] 5.34 10*6/uL Normal 4.10-5.60 [facility]; [facility] Work Phone: Comment on above: PATIENT WAS FASTINGP ERFORMED BY: NIKHIL Nolen6370 [address] [facility] Joy HospitalDublin [place] [id number] WBC (Bld) [#/Vol] 3.6 10*3/uL Abnormal 4.0-10.5 [facility]; [facility] Work Phone: Comment on above: PATIENT WAS FASTINGP ERFORMED BY: NIKHIL LabLatrell Nolen6370 [facility] [id number] LIPID PANEL ([id number])Ordered B y: Curriculum Development Specialist on 10-18-2010 Cholesterol [Mass/Vol] 261 mg/dL Abnormal 100-199 [facility]; [facility] Work Phone: Comment on above: PATIENT WAS FASTINGP ERFORMED BY: NIKHIL LabComalcolm PruittFhxcxt2193 [address] [facility] HospitalDublin [place] [id number] Cholesterol in HDL [Mass/Vol] 58 mg/dL Normal [facility]; [facility] Work Phone: Comment on above: According to ATP-III Guidelines, HDL-C >59 mg/dL is considered anegative risk factor for CHD. PATIENT WAS FASTINGP ERFORMED BY: NIKHIL [facility] Kvqofr4578 Diaz RoadDublin [place] [id number] Cholesterol in LDL [Mass/Vol] 184 mg/dL Abnormal 0-99 [facility]; [facility] Work Phone: Comment on above: PATIENT WAS FASTINGP ERFORMED BY: CB [facility] Omowjp3225 Diaz RoadDublin [place] [id number] Cholesterol in LDL/Cholesterol in HDL [Mass ratio] 3.2 {ratio_units} Normal 0.0-3.6 [facility]; [facility] Work Phone: Comment on above: PATIENT WAS FASTINGP ERFORMED BY: NIKHIL [facility] Fgpglz0689 Diaz RoadDublin [place] [id number] Cholesterol in VLDL [Mass/Vol] 19 mg/dL Normal 5-40 [facility]; [facility] Work Phone: Comment on above: PATIENT WAS FASTINGP ERFORMED BY: NIKHIL [facility] Zyhwug9825 [address] [facility] HospitalDublin [place] [id number] Triglyceride [Mass/Vol] 94 mg/dL Normal 0-149 [facility]; [facility] Work Phone: Comment on above: PATIENT WAS FASTINGP ERFORMED BY: NIKHIL [facility] Isxdjw9896 [facility] Hospitalblin [place] [id number] METABOLIC PANEL, COMPREHENSI VE (80034)Ordered By: Curriculum Development Specialist on 10-18-2010 Albumin [Mass/Vol] 4.4 g/dL Normal 3.5-5.5 [facility] Internal Medicine; [facility] Work Phone: Comment on above: PATIENT WAS FASTINGP ERFORMED BY: CB [facility] Kwrisz6750 [address] RoadDublin [place] [id number] Albumin/Globulin [Mass ratio] 1.6 {ratio} Normal 1.1-2.5 [facility]; [facility] Work Phone: Comment on above: PATIENT WAS FASTINGP ERFORMED BY: [facility] Raypnk8176 [address] RoadDublin [place] [id number] ALP [Catalytic activity/Vol] 71 U/L Normal 25-150 [facility]; [facility] Work Phone: Comment on above: PATIENT WAS FASTINGP ERFORMED BY: CB [facility] Iiatcj2853 [address] RoadDublin [place] [id number] ALT [Catalytic activity/Vol] 25 U/L Normal 0-55 [facility]; [facility] Work Phone: Comment on above: PATIENT WAS FASTINGP ERFORMED BY: CB [facility] Inezhp2782 [address] RoadDublin [place] [id number] AST [Catalytic activity/Vol] 22 U/L Normal 0-40 [facility]; [facility] Work Phone: Comment on above: PATIENT WAS FASTINGP ERFORMED BY: CB [facility] Pkuqao0470 [address] RoadDublin [place] [id number] Bilirubin [Mass/Vol] 0.4 mg/dL Normal 0.0-1.2 Comp rehensive Internal Medicine; [facility] Work Phone: Comment on above: PATIENT WAS FASTINGP ERFORMED BY: CB [facility] Emrsev7053 [address] RoadDublin [place] [id number] Calcium [Mass/Vol] 9.7 mg/dL Normal 8.7-10.2 [facility]; [facility] Work Phone: Comment on above: PATIENT WAS FASTINGP ERFORMED BY: CB [facility] Kzssci2394 [address] RoadDublin [place] [id number] Chloride [Moles/Vol] 102 mmol/L Normal 97-108 Comp [facility]; [facility] Work Phone: Comment on above: PATIENT WAS FASTINGP ERFORMED BY: CB [facility] Nyvqwe8583 [address] RoadDublin [place] [id number] CO2 [Moles/Vol] 24 mmol/L Normal 20-32 [facility] Internal Medicine; [facility] Work Phone: Comment on above: PATIENT WAS FASTINGP ERFORMED BY: CB [facility] Nxoaep8957 [address] RoadDublin [place] [id number] Creatinine [Mass/Vol] 1.12 mg/dL Normal 0.76-1.[address] [facility] prehensive Internal Medicine; [facility] Work Phone: Comment on above: PATIENT WAS FASTINGP ERFORMED BY: NIKHIL [facility] Evkgcp2330 [facility] [id number] GFR/1.73 sq M.predicted among blacks MDRD (S/P/Bld) [Vol rate/Area] mL/min/{1.73_m2} Normal [facility]; [facility] Work Phone: Comment on above: Note: Persistent red uction for 3 months or more in an eGFR<60 mL/min/1.73 m2 defines CKD. Patients with eGFR values>/=60 mL/min/1.73 m2 may also have CKD if evidence of persistentproteinuria is present. Additional information may be found [email or web address]. PATIENT WAS FASTINGP ERFORMED BY: NIKHIL [employer] [id number] [facility] [id number] GFR/1.73 sq M.predicted MDRD (S/P/Bld) [Vol rate/Area] mL/min/{1.73_m2} Normal [facility]; [facility] Work Phone: Comment on above: PATIENT WAS FASTINGP ERFORMED BY: NIKHIL [facility] Hcojxw5082 [facility] [id number] Globulin (S) [Mass/Vol] 2.8 g/dL Normal 1.5-4.5 [facility]; [facility] Work Phone: Comment on above: PATIENT WAS FASTINGP ERFORMED BY: [facility] Sewjth1151 [facility] [id number] Glucose [Mass/Vol] 100 mg/dL Abnormal 65-99 [facility]; [facility] Work Phone: Comment on above: PATIENT WAS FASTINGP ERFORMED BY: [employer] [id number] [facility] [id number] Potassium [Moles/Vol] 4.5 mmol/L Normal 3.5-5.[address] [facility] pre[facility]; [facility] Work Phone: Comment on above: PATIENT WAS FASTINGP ERFORMED BY: CB [facility] Wbukuc1622 [address] RoadDublin [place] [id number] Protein [Mass/Vol] 7.2 g/dL Normal 6.0-8.5 [facility]; [facility] Work Phone: Comment on above: PATIENT WAS FASTINGP ERFORMED BY: CB [facility] Uajuyk6211 [address] RoadDublin [place] [id number] Sodium [Moles/Vol] 139 mmol/L Normal 135-145 [facility]; [facility] Work Phone: Comment on above: PATIENT WAS FASTINGP ERFORMED BY: CB [facility] Mxsorw5779 [address] RoadDublin [place] [id number] Urea nitrogen [Mass/Vol] 26 mg/dL Abnormal 6-24 [facility]; [facility] Work Phone: Comment on above: Please note refere nce interval change PATIENT WAS FASTINGP ERFORMED BY: CB [facility] Tiysfx1485 [address] RoadDublin [place] [id number] Urea nitrogen/Creatinine [Mass ratio] 23 mg/mg Abnormal 9-20 [facility]; [facility] Work Phone: Comment on above: Please note refere nce interval change PATIENT WAS FASTINGP ERFORMED BY: CB [facility] Hwyiro0005 [facility]in [place] [id number] PSA (PROSTATE SPECIFIC ANTIG EN) (V76.44)Ordered By: Curriculum Development Specialist on 10-18-2010 Prostate specific Ag [Mass/Vol] 0.7 ng/mL Normal 0.0-4.0 [facility]; [facility] Work Phone: Comment on above: [employer] ECLIA methodol ogy. .According to the [place] [employer], Serum PSA shoulddecrease and remain at undetectable levels after radicalprostatectomy. The AUA defines biochemical recurrence as an initialPSA value 0.2 ng/mL or greater followed by a subsequent confirmatoryPSA value 0.2 ng/mL or greater.Values obtained with different assay methods or kits cannot be usedinterchangeably. Results cannot be interpreted as absolute evidenceof the presence or absence of malignant disease. PATIENT WAS FASTINGP ERFORMED BY: NIKHIL [facility] Dqrvcq3188 [address] RoadDublin [place] [id number] TSH ([id number])Ordered By: [employer] m Wind Operations Supervisor on 10-18-2010 TSH Qn 1.730 {uIU/mL} Normal 0.450-4.500 Comprehen sive Internal Medicine; [facility] Work Phone: Comment on above: PATIENT WAS FASTINGP ERFORMED BY: NIKHIL [facility] Silawb7654 [address] RoadDublin [place] [id number] URINALYSIS, W/ MICRO (61284) Ordered By: Curriculum Development Specialist on 10-18-2010 Appearance (U) Clear Normal Comprehens christiano [facility]; [facility] Work Phone: Comment on above: PATIENT WAS FASTINGP ERFORMED BY: NIKHIL [facility] Bzoowu7291 [address] RoadDublin [place] [id number] Bilirubin Ql (U) Negative Normal Comprehe nsive Internal Medicine; [facility] Work Phone: Comment on above: PATIENT WAS FASTINGP ERFORMED BY: NIKHIL [facility] Iacnyf9394 [address] RoadDublin [place] [id number] Color (U) Yellow Normal [facility]; [facility] Work Phone: Comment on above: PATIENT WAS FASTINGP ERFORMED BY: NIKHIL [facility] Pezkml9778 [address] RoadDublin [place] [id number] Glucose Ql (U) Negative Normal Comprehens christiano [facility]; [facility] Work Phone: Comment on above: PATIENT WAS FASTINGP ERFORMED BY: NIKHIL [facility] Fxsvsp2723 [address] RoadDublin [place] [id number] Hemoglobin Ql (U) Negative Normal Compreh ensive Internal Medicine; [facility] Work Phone: Comment on above: PATIENT WAS FASTINGP ERFORMED BY: NIKHIL [facility] Oeltyz8411 [address] RoadDublin [place] [id number] Ketones Ql (U) Negative Normal Comprehens christiano [facility]; [facility] Work Phone: Comment on above: PATIENT WAS FASTINGP ERFORMED BY: NIKHIL LabLatrell PruittRydksy9733 [address] RoadDublin [place] [id number] Leukocyte esterase Test strip Ql (U) Negative Normal [facility]; [facility] Work Phone: Comment on above: PATIENT WAS FASTINGP ERFORMED BY: NIKHIL Nolen6370 [address] RoadDublin [place] [id number] Microscopic observation LM Nom (Urine sed) See below: Normal [facility]; [facility] Work Phone: Comment on above: PATIENT WAS FASTINGP ERFORMED BY: NIKHIL Nolen6370 [address] RoadDublin [place] [id number] Microscopic observation LM Nom (Urine sed) MICRON Normal [facility]; [facility] Work Phone: Comment on above: Microscopic follows if indicated. PATIENT WAS FASTINGP ERFORMED BY: NIKHIL Pruittlin6370 [address] RoadDublin [place] [id number] Nitrite Ql (U) Negative Normal Comprehens christiano [facility]; [facility] Work Phone: Comment on above: PATIENT WAS FASTINGP ERFORMED BY: NIKHIL Pruittlin6370 [address] [facility] Hospitalblin [place] [id number] pH (U) 7.0 [pH] Normal 5.0-7.5 [facility]; [facility] Work Phone: Comment on above: PATIENT WAS FASTINGP ERFORMED BY: NIKHIL Pruittlin6370 [address] RoadDublin [place] [id number] Protein Ql (U) Negative Normal Comprehens christiano Internal Medicine; [facility] Work Phone: Comment on above: PATIENT WAS FASTINGP ERFORMED BY: NIKHIL Pruittlin6370 Diaz RoadDublin [place] [id number] Specific gravity (U) [Rel density] 1.023 1 Normal 1.005-1.030 [facility]; [facility] Work Phone: Comment on above: PATIENT WAS FASTINGP ERFORMED BY: NIKHIL LabLatrell PruittGvitgi6[address] Diaz RoadDublin [place] [id number] Urobilinogen (U) [Mass/Vol] 0.2 mg/dL Normal 0.0-1.9 [facility]; [facility] Work Phone: Comment on above: PATIENT WAS FASTINGP ERFORMED BY: NIKHIL LabLatrell PruittSkjoku0055 [facility] [id number] Fecal Occult Blood , Office ([id number])Ordered By: Elvira Olsen on 06-24-2008 Hemoglobin.gastrointe stinal Ql (Stl) Negative Normal [facility]; [facility] Work Phone: LIPID PANEL ([id number])Ordered B y: Tess Krause on 06-03-2008 Cholesterol [Mass/Vol] 243 mg/dL Abnormal 100-199 [facility]; [facility] Work Phone: Comment on above: PATIENT WAS FASTINGP ERFORMED BY: NIKHIL Pruittlin6370 [facility] [id number] Cholesterol in HDL [Mass/Vol] 51 mg/dL Normal 40-59 [facility]; [facility] Work Phone: Comment on above: PATIENT WAS FASTINGP ERFORMED BY: NIKHIL LabLatrell PruittAnvtdg1181 [facility] [id number] Cholesterol in LDL [Mass/Vol] 167 mg/dL Abnormal 0-99 [facility]; [facility] Work Phone: Comment on above: PATIENT WAS FASTINGP ERFORMED BY: NIKHIL LabJose [id number] [facility] [id number] Cholesterol in LDL/Cholesterol in HDL [Mass ratio] SPRCS Normal [facility]; [facility] Work Phone: Comment on above: If initial LDL-keny sterol result is >100 mg/dL, assess forrisk factors. PATIENT WAS FASTINGP ERFORMED BY: NIKHIL LabJose [id number] [facility] [id number] Cholesterol in LDL/Cholesterol in HDL [Mass ratio] 3.3 {ratio_units} Normal 0.0-3.6 [facility]; [facility] Work Phone: Comment on above: PATIENT WAS FASTINGP ERFORMED BY: [facility] [id number] Cholesterol in VLDL [Mass/Vol] 25 mg/dL Normal 5-40 [facility]; [facility] Work Phone: Comment on above: PATIENT WAS FASTINGP ERFORMED BY: [facility]6370 [facility] [id number] Triglyceride [Mass/Vol] 125 mg/dL Normal 0-149 [facility]; [facility] Work Phone: Comment on above: PATIENT WAS FASTINGP ERFORMED BY: [facility]6370 [facility] [id number] METABOLIC PANEL, COMPREHENSI VE ([id number])Ordered By: Tess Krause on 06-03-2008 Albumin [Mass/Vol] 4.6 g/dL Normal 3.5-5.5 [facility] Internal Medicine; [facility] Work Phone: Comment on above: PATIENT WAS FASTINGC linical Information: ADD DRAW FEE [id number] ADD J [id number] PERFORMED BY: [facility] [id number] Albumin/Globulin [Mass ratio] 1.6 {ratio} Normal 1.1-2.5 [facility]; [facility] Work Phone: Comment on above: PATIENT WAS FASTINGC linical Information: ADD DRAW FEE [id number] ADD J [id number] PERFORMED BY: LabLori Ville [id number] [facility] [id number] ALP [Catalytic activity/Vol] 65 U/L Normal 25-150 [facility]; [facility] Work Phone: Comment on above: PATIENT WAS FASTINGC linical Information: ADD DRAW FEE [id number] ADD J 10280 PERFORMED BY: [facility] [id number] ALT [Catalytic activity/Vol] 23 U/L Normal 0-55 [facility]; [facility] Work Phone: Comment on above: PATIENT WAS FASTINGC linical Information: ADD DRAW FEE [id number] ADD J [id number] PERFORMED BY: [facility] [id number] AST [Catalytic activity/Vol] 21 U/L Normal 0-40 [facility]; [facility] Work Phone: Comment on above: PATIENT WAS FASTINGC linical Information: ADD DRAW FEE [id number] ADD J [id number] PERFORMED BY: Miguel [place] [id number] [facility] [id number] Bilirubin [Mass/Vol] 0.5 mg/dL Normal 0.1-1.2 [facility] rehensive Internal Medicine; [facility] Work Phone: Comment on above: PATIENT WAS FASTINGC linical Information: ADD DRAW FEE [id number] ADD J 40163 PERFORMED BY: [facility]6[address] [facility] [id number] Calcium [Mass/Vol] 9.7 mg/dL Normal 8.5-10.6 [facility] Internal Medicine; [facility] Work Phone: Comment on above: PATIENT WAS FASTINGC linical Information: ADD DRAW FEE [id number] ADD J 60029 PERFORMED BY: [place] [id number] [facility] [id number] Chloride [Moles/Vol] 106 mmol/L Normal 97-108 [facility] rehensive Internal Medicine; [facility] Work Phone: Comment on above: PATIENT WAS FASTINGC linical Information: ADD DRAW FEE [id number] ADD J 45473 PERFORMED BY: [place] [id number] [facility] [id number] CO2 [Moles/Vol] 23 mmol/L Normal 20-32 [facility] Internal Medicine; [facility] Work Phone: Comment on above: PATIENT WAS FASTINGC linical Information: ADD DRAW FEE [id number] ADD J 43189 PERFORMED BY: [place] [id number] [facility] [id number] Creatinine [Mass/Vol] 1.00 mg/dL Normal 0.76-1.[address] [facility] prehensive Internal Medicine; [facility] Work Phone: Comment on above: PATIENT WAS FASTINGC linical Information: ADD DRAW FEE [id number] ADD J 98500 PERFORMED BY: NIKHIL Logan Nfwigp2994 [facility] [id number] GFR/1.73 sq M.predicted among blacks MDRD (S/P/Bld) [Vol rate/Area] mL/min/{1.73_m2} Normal 60-137 [facility]; [facility] Work Phone: Comment on above: Note: Persistent red uction for 3 months or more in an eGFR<60 mL/min/1.73 m2 defines CKD. Patients with eGFR values>/=60 mL/min/1.73 m2 may also have CKD if evidence of persistentproteinuria is present. Additional information may be found [email or web address]. PATIENT WAS FASTINGC linical Information: ADD DRAW FEE [id number] ADD J 71298 PERFORMED BY: NIKHIL Logan Jephom3783 [facility] [id number] GFR/1.73 sq M.predicted MDRD (S/P/Bld) [Vol rate/Area] mL/min/{1.73_m2} Normal 60-137 [facility]; [facility] Work Phone: Comment on above: PATIENT WAS FASTINGC linical Information: ADD DRAW FEE [id number] ADD J 42441 PERFORMED BY: NIKHIL Logan Thhafl5907 [facility] [id number] Globulin (S) [Mass/Vol] 2.8 g/dL Normal 1.5-4.5 [facility]; [facility] Work Phone: Comment on above: PATIENT WAS FASTINGC linical Information: ADD DRAW FEE 019802 ADD J 06815 PERFORMED BY: Logan Pdsoib5306 [facility] [id number] Glucose [Mass/Vol] 98 mg/dL Normal 65-99 [facility] Internal Medicine; [facility] Work Phone: Comment on above: PATIENT WAS FASTINGC linical Information: ADD DRAW FEE [id number] ADD J 60607 PERFORMED BY: Logan Uvqzve[address] [place] [address] [id number] Potassium [Moles/Vol] 4.4 mmol/L Normal 3.5-5.[address] [facility] prehensive Internal Medicine; [facility] Work Phone: Comment on above: PATIENT WAS FASTINGC linical Information: ADD DRAW FEE [id number] ADD J 87841 PERFORMED BY: LoganGreystone Park Psychiatric HospitalLkrtac6746 [facility] [id number] Protein [Mass/Vol] 7.4 g/dL Normal 6.0-8.5 [facility] Internal Medicine; [facility] Work Phone: Comment on above: PATIENT WAS FASTINGC linical Information: ADD DRAW FEE [id number] ADD J 10914 PERFORMED BY: LoganAngela Ville [id number] [facility] [id number] Sodium [Moles/Vol] 144 mmol/L Normal 135-145 [facility] Internal Medicine; [facility] Work Phone: Comment on above: PATIENT WAS FASTINGC linical Information: ADD DRAW FEE [id number] ADD J 60274 PERFORMED BY: LoganGreystone Park Psychiatric HospitalLqzjdo3386 [facility] [id number] Urea nitrogen [Mass/Vol] 25 mg/dL Normal 5-26 [facility]; [facility] Work Phone: Comment on above: PATIENT WAS FASTINGC linical Information: ADD DRAW FEE [id number] ADD J 08221 PERFORMED BY: LoganGreystone Park Psychiatric HospitalTlminy1151 [facility] [id number] Urea nitrogen/Creatinine [Mass ratio] 25 mg/mg Normal 8-27 [facility]; [facility] Work Phone: Comment on above: PATIENT WAS FASTINGC linical Information: ADD DRAW FEE [id number] ADD J 46447 PERFORMED BY: Logan Hrraye0882 [facility] [id number] PSA (PROSTATE SPECIFIC ANTIG EN) (V76.44)Ordered By: Tess Krause on 06-03-2008 Prostate specific Ag [Mass/Vol] 0.6 ng/mL Normal 0.0-4.0 [facility]; [facility] Work Phone: Comment on above: Elyssa ECLIA methodol ogy. .According to the [place] [employer], PSA should beundetectable after radical prostatectomy. A PSA of less than0.5 ng/mL (or undetectable) is not likely to be associated withdisease recurrence within five years of treatment.Values obtained with different assay methods or kits cannot be usedinterchangeably. Results cannot be interpreted as absolute evidenceof the presence or absence of malignant disease. PATIENT WAS FASTINGP ERFORMED BY: [facility]6370 Creative MarketUNC [facility] [id number] TSH ([id number])Ordered By: Vikram Krause on 06-03-2008 TSH Qn 1.169 {uIU/mL} Normal 0.450-4.500 [facility] Internal Medicine; [facility] Work Phone: Comment on above: Please note refere nce interval change PATIENT WAS FASTINGP ERFORMED BY: [facility]6370 [facility] MarketUNC [facility] [id number] Vital Signs Date Time Vital Sign Value Performing Clinician Facility 07-03-2023 13:28-040 Body height 160.02 cm [facility] Internal Medicine; [facility] Work Phone: 07-03-2023 13:28-040 Body mass index (BMI) [Ratio] 29.94 kg/m2 [facility] Internal Medicine; [facility] Internal Medicine Work Phone: 07-03-2023 13:28-040 Body surface area Derived from formula 1.8 m2 [facility]; [facility] Work Phone: 07-03-2023 13:28-040 Body temperature 97.8 [degF] [facility]; [facility] Work Phone: 07-03-2023 13:28-040 Body weight 76.66 kg [facility] Internal Medicine; [facility] Internal Medicine Work Phone: 07-03-2023 13:28-040 Diastolic blood pressure 74 mm[Hg] [facility]; [facility] Work Phone: Comment on above: Patient Position: Sitting; Cuff Location : Left Arm; Cuff Size: Standard 07-03-2023 13:28-0400 Heart rate 81 /min [facility]; [facility] Work Phone: Comment on above: Pattern: Regular 07-03-2023 13:28-0400 Respiratory rate 18 /min [facility]; [facility] Work Phone: Comment on above: Pattern: Unlabored 07-03-2023 13:28-0400 SaO2% (BldA) [Mass fraction] 95 % [facility]; [facility] Work Phone: Comment on above: Room air 07-03-2023 13:28-0400 Systolic blood pressure 122 mm[Hg] [facility]; [facility] Work Phone: Comment on above: Patient Position: Sitting; Cuff Location : Left Arm; Cuff Size: Standard 05-14-2023 14:14-0400 Body temperature 97.2 [degF] Ashleigh Athy PA-C Work Phone: [facility] 05-14-2023 14:14-0400 Body weight 76.84 kg Ashleigh Athy PA-C Work Phone: [facility] 05-14-2023 14:14-0400 Diastolic blood pressure 70 mm[Hg] Ashleigh Athy PA-C Work Phone: [facility] 05-14-2023 14:14-0400 Heart rate 96 /min Ashleigh Athy PA-C Work Phone: [facility] 05-14-2023 14:14-0400 Respiratory rate 16 /min Ashleigh Athy PA-C Work Phone: [facility] 05-14-2023 14:14-0400 SaO2% (BldA) [Mass fraction] 97 % Ashleigh Athy PA-C Work Phone: [facility] 05-14-2023 14:14-0400 Systolic blood pressure 160 mm[Hg] Ashleigh Allen PA-C Work Phone: [facility] 03-13-2023 10:55-0400 Body height 160.02 cm [place] [facility]; [facility] Work Phone: 03-13-2023 10:55-0400 Body mass index (BMI) [Ratio] 29.65 kg/m2 [place] [facility]; [facility] Work Phone: 03-13-2023 10:55-0400 Body surface area Derived from formula 1.79 m2 [facility]; [facility] Work Phone: 03-13-2023 10:55-0400 Body temperature 96.2 [degF] [facility]; [facility] Work Phone: 03-13-2023 10:55-0400 Body weight 75.92 kg [facility]; [facility] Work Phone: 03-13-2023 10:55-0400 Diastolic blood pressure 70 mm[Hg] [place] [facility]; [facility] Work Phone: Comment on above: Patient Position: Sitting; Cuff Location : Left Arm; Cuff Size: Standard 03-13-2023 10:55-0400 Heart rate 75 /min [place] [facility]; [facility] Work Phone: Comment on above: Pattern: Regular 03-13-2023 10:55-0400 Respiratory rate 18 /min [place] [facility]; [facility] Work Phone: Comment on above: Pattern: Unlabored 03-13-2023 10:55-0400 SaO2% (BldA) [Mass fraction] 96 % [facility]; [facility] Work Phone: Comment on above: Room air 03-13-2023 10:55-0400 Systolic blood pressure 124 mm[Hg] Efrain Brown REHABILITATION PHYSICIAN [facility]; [facility] Work Phone: Comment on above: Patient Position: Sitting; Cuff Location : Left Arm; Cuff Size: Standard 03-03-2023 22:25-0400 Diastolic blood pressure 83 mm[Hg] [facility] 03-03-2023 22:25-0400 Systolic blood pressure 144 mm[Hg] [facility] 03-03-2023 19:02-0400 Body height 162.56 cm [facility] 03-03-2023 19:02-0400 Body mass index (BMI) [Ratio] 29 kg/m2 [facility] 03-03-2023 19:02-0400 Body temperature 98.5 [degF] [facility] 03-03-2023 19:02-0400 Body weight 76.65 kg [facility] 03-03-2023 19:02-0400 Heart rate 95 /min [facility] 03-03-2023 19:02-0400 Respiratory rate 18 /min [facility] 03-03-2023 19:02-0400 SaO2% (BldA) [Mass fraction] 97 % [facility] 01-18-2023 12:04-0400 Body height 160.02 cm Jackie Anguiano [facility]; [facility] Work Phone: 01-18-2023 12:04-0400 Body mass index (BMI) [Ratio] 29.94 kg/m2 Jackie [facility]; [facility] Work Phone: 01-18-2023 12:04-0400 Body surface area Derived from formula 1.8 m2 Jackie Anguiano [facility]; [facility] Work Phone: 01-18-2023 12:04-0400 Body temperature 98.6 [degF] Jackie Anguiano [facility]; [facility] Work Phone: Comment on above: Method: Thermal Scan 01-18-2023 12:04-0400 Body weight 76.66 kg Jackie Anguiano [facility]; [facility] Work Phone: 01-18-2023 12:04-0400 Diastolic blood pressure 68 mm[Hg] Jackie Anguiano [facility]; [facility] Work Phone: Comment on above: Patient Position: Sitting; Cuff Location : Left Arm; Cuff Size: Standard 01-18-2023 12:04-0400 Heart rate 84 /min Jackie Anguiano [facility]; [facility] Work Phone: Comment on above: Pattern: Regular 01-18-2023 12:04-0400 Respiratory rate 16 /min Jackie Anguiano [facility]; [facility] Work Phone: Comment on above: Pattern: Unlabored 01-18-2023 12:04-0400 SaO2% (BldA) [Mass fraction] 94 % Jackie Anguiano [facility]; [facility] Work Phone: Comment on above: Room air 01-18-2023 12:04-0400 Systolic blood pressure 120 mm[Hg] Jackie Anguiano [facility]; [facility] Work Phone: Comment on above: Patient Position: Sitting; Cuff Location : Left Arm; Cuff Size: Standard 09-01-2021 06:46-0500 Body height 160.02 cm [place] [facility]; [facility] Work Phone: Comment on above: pt reported 09-01-2021 06:46-0500 Body mass index (BMI) [Ratio] 30.47 kg/m2 [place] [facility]; [facility] Work Phone: Comment on above: pt reported 09-01-2021 06:46-0500 Body surface area Derived from formula 1.81 m2 [place] [facility]; [facility] Work Phone: Comment on above: pt reported 09-01-2021 06:46-0500 Body weight 78.02 kg [place] [facility]; [facility] Work Phone: Comment on above: pt reported 09-01-2021 06:46-0500 Heart rate 95 /min [place] Slarb REHABILITATION PHYSICIAN [facility]; [facility] Work Phone: Comment on above: Pattern: Regular pt reported 09-01-2021 06:46-0500 SaO2% (BldA) [Mass fraction] 91 % [place] REHABILITATION PHYSICIAN [facility]; [facility] Work Phone: Comment on above: Room air pt reported 07-28-2021 10:54-0400 Body height 160.02 cm [place] REHABILITATION PHYSICIAN [facility]; [facility] Work Phone: 07-28-2021 10:54-0400 Body mass index (BMI) [Ratio] 30.47 kg/m2 [place] REHABILITATION PHYSICIAN [facility]; [facility] Work Phone: 07-28-2021 10:54-0400 Body surface area Derived from formula 1.81 m2 [place] REHABILITATION PHYSICIAN [facility]; [facility] Work Phone: 07-28-2021 10:54-0400 Body temperature 97.3 [degF] [place] Slarb REHABILITATION PHYSICIAN [facility]; [facility] Work Phone: 07-28-2021 10:54-0400 Body weight 78.02 kg [place] REHABILITATION PHYSICIAN [facility]; [facility] Work Phone: 07-28-2021 10:54-0400 Diastolic blood pressure 78 mm[Hg] [place] Slarb REHABILITATION PHYSICIAN [facility]; [facility] Work Phone: Comment on above: Patient Position: Sitting; Cuff Location : Left Arm; Cuff Size: Standard 07-28-2021 10:54-0400 Heart rate 84 /min [place] REHABILITATION PHYSICIAN [facility]; [facility] Work Phone: Comment on above: Pattern: Regular 07-28-2021 10:54-0400 Respiratory rate 16 /min [place] Slarb REHABILITATION PHYSICIAN [facility]; [facility] Work Phone: Comment on above: Pattern: Unlabored 07-28-2021 10:54-0400 SaO2% (BldA) [Mass fraction] 96 % [place] Hoang CORRY [facility]; [facility] Work Phone: Comment on above: Room air 07-28-2021 10:54-0400 Systolic blood pressure 142 mm[Hg] Batool Hoang CORRY [facility]; [facility] Work Phone: Comment on above: Patient Position: Sitting; Cuff Location : Left Arm; Cuff Size: Standard 06-07-2021 12:06-0400 Body height 160.02 cm Aniya Warren MA [facility]; [facility] Work Phone: 06-07-2021 12:06-0400 Body mass index (BMI) [Ratio] 29.58 kg/m2 Aniya Warren MA [facility]; [facility] Work Phone: 06-07-2021 12:06-0400 Body surface area Derived from formula 1.79 m2 Aniya Warren MA [facility]; [facility] Work Phone: 06-07-2021 12:06-0400 Body temperature 97.1 [degF] Aniya Warren MA [facility]; [facility] Work Phone: 06-07-2021 12:06-0400 Body weight 75.75 kg Aniya Warren MA [facility]; [facility] Work Phone: 06-07-2021 12:06-0400 Diastolic blood pressure 72 mm[Hg] Aniya Warren MA [facility]; [facility] Work Phone: Comment on above: Patient Position: Sitting; Cuff Location : Left Arm; Cuff Size: Standard 06-07-2021 12:06-0400 Heart rate 57 /min Aniya Warren MA [facility]; [facility] Work Phone: Comment on above: Pattern: Regular 06-07-2021 12:06-0400 Respiratory rate 17 /min Aniya Warren MA [facility]; [facility] Work Phone: Comment on above: Pattern: Unlabored 06-07-2021 12:06-0400 SaO2% (BldA) [Mass fraction] 99 % Aniya Warren MA [facility]; [facility] Work Phone: Comment on above: Room air 06-07-2021 12:06-0400 Systolic blood pressure 117 mm[Hg] Aniya Warren MA [facility]; [facility] Work Phone: Comment on above: Patient Position: Sitting; Cuff Location : Left Arm; Cuff Size: Standard 03-20-2021 08:46-0400 Body height 160.02 cm [facility]; [facility] Work Phone: 03-20-2021 08:46-0400 Body mass index (BMI) [Ratio] 30.11 kg/m2 [facility]; [facility] Work Phone: 03-20-2021 08:46-0400 Body surface area Derived from formula 1.8 m2 [facility]; [facility] Work Phone: 03-20-2021 08:46-0400 Body weight 77.11 kg [facility]; [facility] Work Phone: 02-22-2021 09:42-0400 Body height 1922.14 cm [facility]; [facility] Work Phone: 02-22-2021 09:42-0400 Body height 160.02 cm [facility]; [facility] Work Phone: 02-22-2021 09:42-0400 Body mass index (BMI) [Ratio] 0.2 kg/m2 [facility]; [facility] Work Phone: 02-22-2021 09:42-0400 Body mass index (BMI) [Ratio] 30.11 kg/m2 [facility]; [facility] Work Phone: 02-22-2021 09:42-0400 Body surface area Derived from formula 10.81 m2 [facility]; [facility] Work Phone: 02-22-2021 09:42-0400 Body surface area Derived from formula 1.8 m2 [facility]; [facility] Work Phone: 02-22-2021 09:42-0400 Body temperature 96.9 [degF] [facility]; [facility] Work Phone: Comment on above: Method: Thermal Scan 02-22-2021 09:42-0400 Body weight 74.84 kg [facility]; [facility] Work Phone: 02-22-2021 09:42-0400 Body weight 77.11 kg [facility]; [facility] Work Phone: 02-22-2021 09:42-0400 Diastolic blood pressure 82 mm[Hg] [facility]; [facility] Work Phone: Comment on above: Patient Position: Sitting; Cuff Location : Left Arm; Cuff Size: Standard 02-22-2021 09:42-0400 Heart rate 77 /min [facility]; [facility] Work Phone: Comment on above: Pattern: Regular 02-22-2021 09:42-0400 Respiratory rate 16 /min [facility]; [facility] Work Phone: Comment on above: Pattern: Unlabored 02-22-2021 09:42-0400 SaO2% (BldA) [Mass fraction] 94 % [facility]; [facility] Work Phone: Comment on above: Room air 02-22-2021 09:42-0400 Systolic blood pressure 120 mm[Hg] [facility]; [facility] Work Phone: Comment on above: Patient Position: Sitting; Cuff Location : Left Arm; Cuff Size: Standard 03-26-2012 08:05-0400 Body height 1922.14 cm Elvira Raúl [facility]; [facility] Work Phone: 03-26-2012 08:05-0400 Body mass index (BMI) [Ratio] 0.2 kg/m2 Elvira Olsen [facility]; [facility] Work Phone: 03-26-2012 08:05-0400 Body surface area Derived from formula 10.81 m2 Elvira Olsen [facility]; [facility] Work Phone: 03-26-2012 08:05-0400 Body temperature 98.2 [degF] Elvira Olsen REHABILITATION PHYSICIAN [facility]; [facility] Work Phone: Comment on above: Method: Oral 03-26-2012 08:05-0400 Body weight 74.84 kg Elvira Olsen [facility]; [facility] Work Phone: 03-26-2012 08:05-0400 Diastolic blood pressure 78 mm[Hg] Elvira Olsen [facility]; [facility] Work Phone: Comment on above: Patient Position: Sitting; Cuff Location : Left Arm; Cuff Size: Standard 03-26-2012 08:05-0400 Heart rate 74 /min Elvira Olsen [facility]; [facility] Work Phone: Comment on above: Pattern: Regular 03-26-2012 08:05-0400 Respiratory rate 16 /min Elvira Olsen [facility]; [facility] Work Phone: Comment on above: Pattern: Unlabored 03-26-2012 08:05-0400 Systolic blood pressure 142 mm[Hg] Elvira Olsen [facility]; [facility] Work Phone: Comment on above: Patient Position: Sitting; Cuff Location : Left Arm; Cuff Size: Standard 03-11-2012 11:42-0400 Body height 1922.14 cm Elvira Olsen [facility]; [facility] Work Phone: 03-11-2012 11:42-0400 Body mass index (BMI) [Ratio] 0.2 kg/m2 Elvira Olsen [facility]; [facility] Work Phone: 03-11-2012 11:42-0400 Body surface area Derived from formula 10.81 m2 Elvira Olsen LPN [facility]; [facility] Work Phone: 03-11-2012 11:42-0400 Body temperature 98.9 [degF] Elvira Olsen LPN [facility]; [facility] Work Phone: Comment on above: Method: Oral 03-11-2012 11:42-0400 Body weight 74.84 kg Elvira Olsen LPN [facility]; [facility] Work Phone: 03-11-2012 11:42-0400 Diastolic blood pressure 78 mm[Hg] Elvira Olsen LPN [facility]; [facility] Work Phone: Comment on above: Patient Position: Sitting; Cuff Location : Left Arm; Cuff Size: Standard 03-11-2012 11:42-0400 Heart rate 76 /min Elvira Olsen LPN [facility]; [facility] Work Phone: Comment on above: Pattern: Regular 03-11-2012 11:42-0400 Respiratory rate 16 /min Elvira Olsen LPN [facility]; [facility] Work Phone: Comment on above: Pattern: Unlabored 03-11-2012 11:42-0400 Systolic blood pressure 138 mm[Hg] Elvira Olsen LPN [facility]; [facility] Work Phone: Comment on above: Patient Position: Sitting; Cuff Location : Left Arm; Cuff Size: Standard 01-16-2012 16:06-0400 Body height 1922.14 cm Kalyn A Fast DO Work Phone: [facility]; [facility] Work Phone: 01-16-2012 16:06-0400 Body mass index (BMI) [Ratio] 0.2 kg/m2 Kalyn A Fast DO Work Phone: [facility]; [facility] Work Phone: 01-16-2012 16:06-0400 Body surface area Derived from formula 10.81 m2 Kalyn A Fast DO Work Phone: [facility]; [facility] Work Phone: 01-16-2012 16:06-0400 Body temperature 97.7 [degF] Kalyn A Fast DO Work Phone: [facility]; [facility] Work Phone: Comment on above: Method: Oral 01-16-2012 16:06-0400 Body weight 74.84 kg Kalyn A Fast DO Work Phone: [facility]; [facility] Work Phone: 01-16-2012 16:06-0400 Diastolic blood pressure 74 mm[Hg] Kalyn A Fast DO Work Phone: [facility]; [facility] Work Phone: Comment on above: Patient Position: Sitting; Cuff Location : Left Arm; Cuff Size: Large 01-16-2012 16:06-0400 Heart rate 82 /min Kalyn A Fast DO Work Phone: [facility]; [facility] Work Phone: Comment on above: Pattern: Regular 01-16-2012 16:06-0400 Respiratory rate 16 /min Kalyn A Fast DO Work Phone: [facility]; [facility] Work Phone: Comment on above: Pattern: Unlabored 01-16-2012 16:06-0400 Systolic blood pressure 128 mm[Hg] Kalyn A Fast DO Work Phone: [facility]; [facility] Work Phone: Comment on above: Patient Position: Sitting; Cuff Location : Left Arm; Cuff Size: Large 11-06-2010 16:07-0500 Body temperature 97.4 [degF] Elvira Olsen LPN [facility]; [facility] Work Phone: Comment on above: Method: Oral 11-06-2010 16:07-0500 Body weight 76.2 kg Elvira Olsen LPN [facility]; [facility] Work Phone: 11-06-2010 16:07-0500 Diastolic blood pressure 84 mm[Hg] Elvira Olsen [facility]; [facility] Work Phone: Comment on above: Patient Position: Sitting; Cuff Location : Left Arm; Cuff Size: Standard 11-06-2010 16:07-0500 Heart rate 72 /min Elvira Olsen [facility]; [facility] Work Phone: Comment on above: Pattern: Regular 11-06-2010 16:07-0500 Systolic blood pressure 142 mm[Hg] Elvira Olsen [facility]; [facility] Work Phone: Comment on above: Patient Position: Sitting; Cuff Location : Left Arm; Cuff Size: Standard 10-18-2010 08:17-0500 Body temperature 97.8 [degF] Melvi White [facility]; [facility] Work Phone: 10-18-2010 08:17-0500 Body weight 76.2 kg Melvi White [facility]; [facility] Work Phone: 10-18-2010 08:17-0500 Diastolic blood pressure 88 mm[Hg] Melvi White [facility]; [facility] Work Phone: Comment on above: Patient Position: Sitting; Cuff Location : Left Arm; Cuff Size: Standard 10-18-2010 08:17-0500 Heart rate 88 /min Melvi White [facility]; [facility] Work Phone: Comment on above: Pattern: Regular 10-18-2010 08:17-0500 Respiratory rate 18 /min Melvi White [facility]; [facility] Work Phone: Comment on above: Pattern: Unlabored 10-18-2010 08:17-0500 Systolic blood pressure 114 mm[Hg] Melvi White [facility]; [facility] Work Phone: Comment on above: Patient Position: Sitting; Cuff Location : Left Arm; Cuff Size: Standard 07-01-2009 08:27-0400 Body height 0 cm Melvi White [facility]; [facility] Work Phone: 07-01-2009 08:27-0400 Body temperature 96.2 [degF] Melvi White [facility]; [facility] Work Phone: Comment on above: Method: Undefined 07-01-2009 08:270400 Body weight 75.3 kg Melvi White [facility]; [facility] Work Phone: 07-01-2009 08:27-0400 Diastolic blood pressure 76 mm[Hg] Melvi White [facility]; [facility] Work Phone: Comment on above: Patient Position: Sitting; Cuff Location : Right Arm; Cuff Size: Standard 07-01-2009 08:27-0400 Head Occipital-frontal circumference 0 cm Melvi Baumanlucinda [facility]; [facility] Work Phone: 07-01-2009 08:27-0400 Heart rate 68 /min Melvi Aguirrenatalio [facility]; [facility] Work Phone: Comment on above: Pattern: Regular 07-01-2009 08:27-0400 Respiratory rate 18 /min Melvi White [facility]; [facility] Work Phone: Comment on above: Pattern: Undefined 07-01-2009 08:27-0400 Systolic blood pressure 128 mm[Hg] Melvi Aguirrenatalio [facility]; [facility] Work Phone: Comment on above: Patient Position: Sitting; Cuff Location : Right Arm; Cuff Size: Standard 07-19-2008 13:33-0400 Body height 0 cm Melvi Baumanlucinda [facility]; [facility] Work Phone: 07-19-2008 13:33-0400 Body temperature 97.2 [degF] Melvi Baumanlucinda [facility]; [facility] Work Phone: Comment on above: Method: Undefined 07-19-2008 13:33-0400 Body weight 76.2 kg Melvi Baumanlucinda [facility]; [facility] Work Phone: 07-19-2008 13:33-0400 Diastolic blood pressure 62 mm[Hg] Melvi Cindy [facility]; [facility] Work Phone: Comment on above: Patient Position: Sitting; Cuff Location : Left Arm; Cuff Size: Standard 07-19-2008 13:33-0400 Head Occipital-frontal circumference 0 cm Melvi White [facility]; [facility] Work Phone: 07-19-2008 13:33-0400 Heart rate 76 /min Melvi Cindy [facility]; [facility] Work Phone: Comment on above: Pattern: Regular 07-19-2008 13:33-0400 Respiratory rate 18 /min Melvi White [facility]; [facility] Work Phone: Comment on above: Pattern: Undefined 07-19-2008 13:33-0400 Systolic blood pressure 110 mm[Hg] Melvi White [facility]; [facility] Work Phone: Comment on above: Patient Position: Sitting; Cuff Location : Left Arm; Cuff Size: Standard 06-03-2008 09:09-0400 Body height 0 cm Tracy Rios RN [facility]; [facility] Work Phone: 06-03-2008 09:09-0400 Body weight 76.23 kg Tracy Rios RN [facility]; [facility] Work Phone: 06-03-2008 09:09-0400 Diastolic blood pressure 76 mm[Hg] Tracy Rios RN [facility]; [facility] Work Phone: Comment on above: Patient Position: Sitting; Cuff Location : Left Arm; Cuff Size: Standard 06-03-2008 09:09-0400 Head Occipital-frontal circumference 0 cm Tracy Rios RN [facility]; [facility] Work Phone: 06-03-2008 09:09-0400 Heart rate 72 /min Tracy Rios RN [facility]; [facility] Work Phone: Comment on above: Pattern: Regular 06-03-2008 09:09-0400 Respiratory rate 18 /min Tracy Rios RN [facility]; [facility] Work Phone: Comment on above: Pattern: Unlabored 06-03-2008 09:09-0400 Systolic blood pressure 122 mm[Hg] Tracy Rios RN [facility]; [facility] Work Phone: Comment on above: Patient Position: Sitting; Cuff Location : Left Arm; Cuff Size: Standard 08-07-2007 07:58-0500 Body height 0 cm Tracy Rios RN [facility]; [facility] Work Phone: 08-07-2007 07:58-0500 Body weight 76.23 kg Tracy Rios RN [facility]; [facility] Work Phone: 08-07-2007 07:58-0500 Diastolic blood pressure 80 mm[Hg] Tracy Rios RN [facility]; [facility] Work Phone: Comment on above: Patient Position: Sitting; Cuff Location : Right Arm; Cuff Size: Standard 08-07-2007 07:58-0500 Head Occipital-frontal circumference 0 cm Tracy Rios RN [facility]; [facility] Work Phone: 08-07-2007 07:58-0500 Heart rate 84 /min Tracy Rios RN [facility]; [facility] Work Phone: Comment on above: Pattern: Regular 08-07-2007 07:58-0500 Respiratory rate 16 /min Tracy Rios RN [facility]; [facility] Work Phone: Comment on above: Pattern: Unlabored 08-07-2007 07:58-0500 Systolic blood pressure 122 mm[Hg] Tracy Rios RN [facility]; [facility] Work Phone: Comment on above: Patient Position: Sitting; Cuff Location : Right Arm; Cuff Size: Standard 09-17-2006 13:16-0500 Body height 0 cm Elvira Olsen LPN [facility]; [facility] Work Phone: 09-17-2006 13:16-0500 Body temperature 97.8 [degF] Elvira Olsen LPN [facility]; [facility] Work Phone: Comment on above: Method: Oral 12-19-2006 13:16-0500 Body weight 77.2 kg Elvira Olsen [facility]; [facility] Work Phone: 09-17-2006 13:16-0500 Diastolic blood pressure 78 mm[Hg] Elvira Olsen COR[facility]; [facility] Work Phone: Comment on above: Patient Position: Sitting; Cuff Location : Left Arm; Cuff Size: Standard 09-17-2006 13:16-0500 Head Occipital-frontal circumference 0 cm Elvira Olsen [facility]; [facility] Work Phone: 09-17-2006 13:16-0500 Heart rate 72 /min Elvira Olsen [facility]; [facility] Work Phone: Comment on above: Pattern: Regular 09-17-2006 13:16-0500 Respiratory rate 17 /min Elvira Raúl [place]; [facility] Work Phone: Comment on above: Pattern: Unlabored 09-17-2006 13:16-0500 Systolic blood pressure 112 mm[Hg] Elvira Olsen COR[facility]; [facility] Work Phone: Comment on above: Patient Position: Sitting; Cuff Location : Left Arm; Cuff Size: Standard 08-15-2006 10:34-0500 Body height 0 cm Ana Freire RN [facility]; [facility] Work Phone: 08-15-2006 10:34-0500 Body temperature 98 [degF] Ana Freire RN [facility]; [facility] Work Phone: Comment on above: Method: Oral 08-15-2006 10:34-0500 Body weight 75.75 kg Ana Freire RN [facility]; [facility] Work Phone: 08-15-2006 10:34-0500 Diastolic blood pressure 80 mm[Hg] Ana Freire RN [facility]; [facility] Work Phone: Comment on above: Patient Position: Sitting; Cuff Location : Left Arm; Cuff Size: Standard 08-15-2006 10:34-0500 Head Occipital-frontal circumference 0 cm Ana Freire RN [facility]; [facility] Work Phone: 08-15-2006 10:34-0500 Heart rate 68 /min Ana Freire RN [facility]; [facility] Work Phone: Comment on above: Pattern: Regular 08-15-2006 10:34-0500 Respiratory rate 16 /min Ana Freire RN [facility]; [facility] Work Phone: Comment on above: Pattern: Unlabored 08-15-2006 10:34-0500 Systolic blood pressure 114 mm[Hg] Ana Freire RN [facility]; [facility] Work Phone: Comment on above: Patient Position: Sitting; Cuff Location : Left Arm; Cuff Size: Standard Encounters Encounter Date Encounter Type Care Provider Facility Start: 12-24-2024 End: 12-24-2024 ambulatory Ganga Coronado [place] [place] Start: 03-31-2024 End: 03-31-2024 ambulatory Tess Krause Facility:[facility] Start: 07-15-2023 Non-patient / Non-visit Dr. Frederick Krause Work Phone: [facility] Start: 07-15-2023 End: 07-15-[address] Tess Krause Work Phone: [facility] Work Phone: Start: 07-15-2023 End: 07-15-[address] Tses Krause Work Phone: [facility] Work Phone: Start: 07-03-2023 End: 07-03-2023 Phone Encounter Tess Krause DO Work Phone: [facility] Start: 07-03-2023 End: 07-03-2023 Office outpatient visit 25 minutes Tess Krause DO Work Phone: [facility] Start: 05-14-2023 End: 05-14-2023 ambulatory Facility:[facility] Start: 05-14-2023 End: 05-14-2023 Patient encounter procedure Ashleigh Allen PA-C Work Phone: [facility] Comment on above: Laceration of left m iddle finger without damage to nail, foreign body presence unspecified, initial encounter (Primary Dx) Start: 03-13-2023 End: 03-13-2023 Office outpatient visit 15 minutes Tess Jimi DO Work Phone: [facility] Start: 03-03-2023 End: 03-03-2023 Emergency department patient visit [facility] Start: 01-18-2023 End: 01-18-2023 Office outpatient visit 25 minutes Tess Jimi DO Work Phone: [facility] Start: 01-08-2023 ambulatory Tess Jimi DO [facility] Start: 01-01-2022 End: 01-01-2022 Patient encounter procedure [facility]Radiology, [facility] Start: 09-01-2021 End: 09-01-2021 Annotation/Addendum Tess Jimi DO Work Phone: [facility] Start: 09-01-2021 End: 09-01-2021 Office outpatient visit 15 minutes Tess Jimi DO Work Phone: [facility] Start: 07-28-2021 End: 07-28-2021 Office outpatient visit 25 minutes Tess Jimi DO Work Phone: [facility] Start: 07-28-2021 End: 07-28-2021 Preoperative state Tess Jimi DO Work Phone: [facility]; [facility] Work Phone: Start: 07-03-2021 End: 06-04-2023 Phone Encounter Tess Jimi DO Work Phone: [facility] Start: 07-03-2021 Review Tess Fearo n DO Work Phone: [facility] Start: 06-07-2021 End: 06-07-2021 Office outpatient visit 10 minutes Tess Jimi DO Work Phone: [facility] Start: 03-20-2021 End: 03-20-2021 Office outpatient visit 15 minutes Tess Jimi DO Work Phone: [facility] Start: 03-20-2021 Review Tess Fearo n DO Work Phone: [facility] Start: 02-22-2021 End: 02-22-2021 Office outpatient new 30 minutes Tess Jimi DO Work Phone: [facility] Start: 02-22-2021 Review Tess Fearo n DO Work Phone: [facility] Start: 03-26-2012 End: 03-26-2012 Office outpatient visit 25 minutes Tess Jimi DO Work Phone: [facility] Start: 03-11-2012 End: 03-11-2012 Office outpatient visit 25 minutes Tess Jimi DO Work Phone: [facility] Start: 01-16-2012 End: 01-17-2012 Patient encounter procedure Tess Jimi DO Work Phone: [facility] Start: 11-06-2010 End: 11-06-2010 Office outpatient visit 25 minutes Tess Jimi DO Work Phone: [facility] Start: 10-18-2010 End: 10-18-2010 Patient encounter procedure Tess Jimi DO Work Phone: [facility] Start: 07-01-2009 End: 07-03-2009 Patient encounter procedure Tess Jimi DO Work Phone: [facility] Start: 07-19-2008 End: 07-19-2008 Patient encounter procedure Tess Jimi DO Work Phone: [facility] Start: 06-24-2008 End: 06-24-2008 Patient encounter procedure Tess Jimi DO Work Phone: [facility] Start: 06-03-2008 End: 06-03-2008 Patient encounter procedure Tess Jimi DO Work Phone: [facility] Start: 08-07-2007 End: 08-07-2007 Patient encounter procedure Tess Krause DO Work Phone: [facility] Start: 01-13-2007 End: 01-13-2007 Patient encounter procedure Tess Krause DO Work Phone: [facility] Start: 12-05-2006 End: 12-05-2006 Patient encounter procedure Tess Kraues DO Work Phone: [facility] Start: 09-27-2006 End: 09-27-2006 Nursing evaluation of patient and report Tess Krause DO Work Phone: [facility] Start: 09-17-2006 End: 09-17-2006 Office outpatient visit 15 minutes Tess Krause DO Work Phone: [facility] Start: 08-15-2006 End: 08-15-2006 Office outpatient new 45 minutes Tess Krause DO Work Phone: [facility] Start: 08-15-2006 End: 08-15-2006 Patient encounter status Tess Krause DO Work Phone: [facility] End: 07-01-2009 Patient encounter status Louisa Tera [facility]; [facility] Work Phone: Comment on above: Pt to do stool cards to evaluate for blood. Hx of colonscropy in the past 2 years. End: 01-18-2023 Preoperative state Jackie Anguiano [facility] R[facility] Intake [facility]; [facility] Work Phone: Procedures Date Procedure Procedure Detail Performing Clinician Start: 07-15-2023 End: 07-17-2023 Echo Complete W/ Contrast Procedure Note: See Note; NOTES: [facility] [address] [place] [address] Echo Complete W/ Contrast 07/15/23 1406 MR#: [id number] Acct: [id number] Name: PANKAJ ESQUEDA GENE Rep #: [id number] : [id number] From: Ana Conroy MD Attending Dr: Dr. Tess Krause, DO Status: R EG CLI Ordering Dr: Tess Krause DO Date: 07/15/23 Location: [facility] Sex: M C Admitted: Reason For Study: ABN EKG Procedure This was a 2D Doppler, Color Flow transthoracic echocardiogram. The study was technically difficult. Exam performed in department. Left Ventricle Normal LV size. The estimated ejection fraction is 60 %. No evidence for diastolic dysfunction. No regional wall motion abnormalities noted. Right Ventricle Normal RV size. Normal systolic function. Atria Normal left atrium. Normal right atrium. No doppler evidence for ASD. Mitral Valve There is no mitral valve stenosis. Trivial mitral valve insufficiency. Tricuspid Valve There is no tricuspid stenosis. Unable to estimate RV systolic pressure due to inadequate jet, pulmonary artery pressure probably normal. Aortic Valve Trisinus/trileaflet aortic valve. There is no aortic stenosis. No aortic valve insufficiency. Pulmonic Valve There is no pulmonic valvular stenosis. No pulmonic valve insufficiency. Great Vessels Normal aortic root. Pericardium/Pleural No pericardial effusion. Medication 22 gauge I.V. with prn adaptor inserted into right arm. Diluted definity 2ml given slow IV push to enhance endocardial definition. MMode/2D Measurements Calculations LVIDd: 4.9 cm IVSd: 0.78 cm Ao root diam: 3.2 cm LVIDs: 3.2 cm LVPWd: 0.78 cm RVDd: 3.5 cm FS: 34.5 % LAV(MOD-bp): 24.1 ml LVAd ap4: 27.6 cm2 SV(MOD-sp4): 49.2 ml LAV(MOD-bp) Indexed: 13.6 ml/m2 LVLd ap4: 7.6 cm LAV(MOD-sp2): 24.5 ml EDV(MOD-sp4): 83.0 ml LAV(MOD-sp4): 22.0 ml EDV(sp4-el): 84.7 ml LVAs ap4: 15.7 cm2 LVLs ap4: 6.5 cm ESV(MOD-sp4): 33.8 ml ESV(sp4-el): 32.1 ml EF(MOD-sp4): 59.2 % EF(sp4-el): 62.2 % SV(sp4-el): 52.6 ml LA A4 area: 11.3 cm2 LA dimension(2D): 3.5 cm RA A4 area: 9.7 cm2 Time Measurements MV dec time: 0.14 sec Doppler Measurements Calculations MV E max gato: 55.3 cm/sec Lat Peak E' Gato: 9.2 cm/sec Med Peak E' Gato: 7.7 cm/sec MV A max gato: 64.5 cm/sec E/E' lat: 6.0 E/E' med: 7.2 MV E/A: 0.86 Ao V2 max: 112.7 cm/sec LV V1 max: 89.9 cm/sec PA V2 max: 59.7 cm/sec Ao max P.1 mmHg LV V1 max P.2 mmHg TR max gato: 186.8 cm/sec TR max P.0 mmHg ECHO/Echo Complete W/ Contrast Interpretation Summary The estimated ejection fraction is 60 %. No evidence for diastolic dysfunction. Trivial mitral valve insufficiency. Ordering Physician: Tess Krause Referring Physician: Tess Krause Performed By: Ghazala Mejía, ZOEY 07/17/238 Date Ana Conroy MD CC: Dr. Tess Krause DO Date Dictated: 07/15/236 Date Transcribed: 07/17/231627 Adoption Counselor: Spenser Krause DO Work Phone: Start: 03-03-2023 End: 03-03-2023 Abdomen/Pelvis W IV Cont ONLY Procedure Note: See Note; NOTES: [facility] Imaging Services [address] [place] [address] Abdomen/Pelvis W IV Cont ONLY MR#: [id number] Acct: [id number] Name: PANKAJ ESQUEDA GENE Rep #: [id number] : 1955 M 67 From: Miky kyle MD PCP: Dr. Tess Krause DO Status: REG ER Study: Abdomen/Pelvis W IV Cont ONLY Date of Exam: Exam# [id number] Ordering Dr: Aleksandr,Artemio DO STUDY: CT ABDOMEN AND PELVIS WITH CONTRAST REASON FOR EXAM: Male, 67 years old. Left lower quadrant abdominal pain RADIATION DOSAGE (If Supplied By Facility): CTDIvol = ( 12.49 ) mGy, DLP = ( 762.50 ) mGycm TECHNIQUE: Transaxial images were obtained from the dome of the diaphragm to the symphysis pubis without oral contrast. IV 100mL Isovue-300 was administered. Sagittal and coronal images were reconstructed. Individualized dose optimization techniques were used for this CT. COMPARISON: None. FINDINGS: The visualized lung bases are unremarkable. The visualized portions of the heart are within normal limits. Normal liver with probable 1.2 cm cyst of the dome of the liver and additional subcentimeter cyst of the posterior segment of the right hepatic lobe.. Normal gallbladder and extrahepatic biliary system. There are multiple benign calcified granulomata of the spleen. Normal pancreas. Normal bilateral adrenal glands. Normal right kidney. Left kidney has small nonobstructing stones in the upper and lower poles. There are bilateral parapelvic cysts. Normal visualized stomach. Normal small intestine. There is diverticulosis, with thickening of the colon wall, and pericolonic inflammation changes consistent with acute diverticulitis of the distal descending colon. No evidence for perforation or abscess. The appendix is visualized and appears normal. Normal abdominal aorta. Normal inferior vena cava. Normal retroperitoneum. Normal urinary bladder. There is enlargement of the prostate gland. There are calcifications of the prostate. Normal abdominal wall. There are diffuse degenerative changes of the visualized lumbar spine. CT/Abdomen/Pelvis W IV Cont ONLY IMPRESSION: Acute diverticulitis of the distal descending colon without perforation or abscess. Nonobstructing stones of the left kidney. Electronically Signed: Miky Beltran MD at 22:13 EDT , CC: Dr. Tess Krause DO; Dr. Artemio Brandon DO Adoption Counselor: Signed Tess Krause DO Work Phone: Start: 03-03-2023 Computed tomography of abdomen and pelvis with intravenous contrast Start: 03-03-2023 End: 03-03-2023 Emergency Department Summary Procedure Note: See Note; NOTES: [facility] Medical Records Department [address] [place] [address] Emergency Department Summary 03/03/23 MR#: [id number] Acct: [id number] Name: PANKAJ ESQUEDA GENE Rep #: [id number] : 1955 67 From: Artemio Brandon DO PCP: Dr. Tess Krause DO Status:DEP ER Location: ED HPI History of Present Illness Chief Complaint: Abd Pain [facility] Medical History (Updated 03/03/23 @ 22:[address] Artemio Brandon DO) Alcohol use Back pain Former smoker Heartburn History of diverticulitis History of IBS History of stress test Wears glasses Home Medications cholecalciferol (vitamin D3) 25 mcg (1,000 unit) tablet (Vitamin D3) 25 mcg PO DAILY 06/28/21 [History Last Taken Unknown] citalopram 40 mg tablet (Celexa) 20 mg PO DAILY 06/28/21 [History Last Taken Unknown] organ concentrates 140 mg capsule 140 mg PO DAILY 06/28/21 [History Last Taken Unknown] phenazopyridine 95 mg tablet 99.9 mg PO QHS 06/28/21 [History Last Taken Unknown] tadalafil 5 mg tablet (Cialis) 5 mg PO DAILY 06/28/21 [History Last Taken Unknown] cephalexin 500 mg tablet 500 mg PO BID #10 tabs 07/05/21 [Rx Last Taken Unknown] amoxicillin 875 mg-potassium clavulanate 125 mg tablet 1 tab PO BID 7 days #14 tabs 03/03/23 [Rx Last Taken Unknown] Allergy/AdvReac Type Severity Reaction Status Date / Time ciprofloxacin [From Cipro] AdvReac REFUSED, Verified 03/03/23 19:04 TOO MANY SIDE EFFECTS, TENDON DAMAGE Surgical History History of cardiac catheterization Hx of colonoscopy Hx of cystoscopy Social History Smoking Status: Former smoker EXAM Physical Exam Const Vital Signs: 03/03/23 19:02 03/03/23 22:25 Temperature 98.5 F Temperature Source Temporal Pulse Rate 95 Respiratory Rate 18 Blood Pressure 139/78 H 144/83 H Blood Pressure Mean 98 Pulse Ox 97 [facility] [place] Narrative Medical decision making narrative: HISTORY OF PRESENT ILLNESS: 67-year-old male here for abdominal pain. Notes 3 days of left lower quad abdominal pain with diarrhea. He is history of IBS. He further states he has severe left lower quadrant abdominal pain. Its not worse with food. States he has history of kidney stones is much more painful and not similar. Denies any urinary complaint such as frequency, urgency or foul smell. Denies any fever or vomiting. Denies any chest pain or shortness of breath. REVIEW OF SYSTEMS: Pertinent positives: Left lower quadrant abdominal pain Pertinent negatives: Vomiting PHYSICAL EXAM: Nursing triage notes reviewed, Vital signs reviewed Constitutional: please see mdm HENT: MMM Eyes: Pupils equal round and reactive to light, Extraocular muscles intact Neck: No stridor, no JVD, full neck ROM Lungs: Clear to auscultation, No wheezing or rales. No increased work of breathing, no conversational dyspnea, no accessory muscle use, no nasal flaring. No respiratory distress noted Heart: Regular rate and rhythm, No murmurs, No rubs and No gallops, 2+ distal pulses (radial, femoral, posterior tibial) in all extremities Abdomen: Soft, there is no tenderness, rigidity, rebound or guarding, no obvious peritoneal signs, no palpable pulsatile abdominal masses, no auscultated abdominal bruit : No CVAT Extremities: No edema Neuro: No focal neurological deficits, cranial nerves II through XII intact, 5/5 strength in all extremities. Intact sensation to light touch in all extremities, 2+ reflexes bilateral patella tendons. Normal gait. No ataxia. Skin: No rash or lesions noted MEDICAL DECISION MAKING: Chief Complaint: Abdominal pain External records reviewed: No recent [place] [facility]o imaging of abdomen pelvis Factors affecting care: History of nephrolithiasis, IBS Social determinants of health: History of alcohol abuse History obtained from others: The patient's family Consults: None ALL IMAGES HAVE BEEN PERSONALLY REVIEWED AND INTERPRETED BY MYSELF. MDM Narrative: I considered the following differential diagnosis: IBS flare, diverticulitis, dehydration, intra- abdominal infection, obstruction or perforation I obtained a CT scan abdomen pelvis showed evidence of acute diverticulitis. There is no signs of systemic inflammation, endorgan hypoperfusion on CBC or BMP. Patient was given first dose of Augmentin here. They were tolerated. He was given pain medicine and follow-up instructions as well as strict return precautions. Patient agreed with the plan. Total critical care time today provided was at least 0 minutes. This excludes separately billable procedures. Critical care time if documented is secondary to the patient having high probability of clinically significant/life threatening deterioration in the patient's condition which required my urgent intervention. Shared decision making: I will have a discussion with the patient and or visitors regarding risk/benefits of further testing or admission. They will be made aware of of the risk/benefits inherent in this decision they will be given the opportunity to voice understanding. Lab Data Attestation: I reviewed the patient's lab results. Lab results narrative: CBC without leukocytosis, severe anemia, no thrombocytopenia. BMP without evidence of significant electrolyte abnormalities, no anion gap, no acute kidney injury. Lipase is wnl indicating no pancreatic inflammation. Labs: Laboratory Results - last 24 hr 03/03/23 03/03/23 19:41 19:41 WBC 8.1 RBC 5.34 Hgb 16.1 Hct 49.4 MCV 92.5 MCH 30.1 MCHC 32.6 RDW Std Deviation 45.3 H RDW Coeff of Ne 13.4 Plt Count 268 MPV 10.2 Immature Gran % (Auto) 0.200 Neut % (Auto) 76.1 H Lymph % (Auto) 14.9 L [place] % (Auto) 7.7 Eos % (Auto) 0.7 Baso % (Auto) 0.4 Absolute Neuts (auto) 6.1 Absolute Lymphs (auto) 1.20 Nucleated RBC % 0 Sodium 137 Potassium 4.6 Chloride 106 Carbon Dioxide 25.0 Anion Gap 6 BUN 17 Creatinine 1.04 Estim Creat Clear Calc 56.92 Est GFR (MDRD) Af Amer 91 Est GFR (MDRD) Non-Af 75 BUN/Creatinine Ratio 16.3 Glucose 102 Calcium 9.5 Lipase 49 Radiography Diagnostic Testing: Clinical Impression(s) from Imaging Studies Abdomen/Pelvis CT 03/03/23 21:21 IMPRESSION: Acute diverticulitis of the distal descending colon without perforation or abscess. Nonobstructing stones of the left kidney. Electronically Signed: Miky Beltran MD at 22:13 EDT , Discharge Plan Triage Chief Complaint: Abd Pain ED Provider: Artemio Brandon Dx/Rx/DC Orders Clinical Impression: Acute diverticulitis Instructions: ED Diverticulitis Prescriptions: New amoxicillin-pot clavulanate 875-125 mg tablet 1 tab PO BID 7 Days Qty: 14 0RF No Action citalopram [Celexa] 40 mg Tablet 20 mg PO DAILY organ concentrates 140 mg Capsule 140 mg PO DAILY tadalafil [Cialis] 5 mg Tablet 5 mg PO DAILY cholecalciferol (vitamin D3) [Vitamin D3] 25 mcg (1,000 unit) Tablet 25 mcg PO DAILY phenazopyridine 95 mg Tablet 99.9 mg PO QHS cephalexin 500 mg tablet 500 mg PO BID Qty: 10 0RF Stand Alone Forms: ED Work / School Excuse Primary Care Provider: Tess Krause Referrals: Tess Krause DO [Primary Care Provider] - Activity Restrictions/Additional Instructions: Thank you for trusting us with your care today! Please take Tylenol (2 pills, 650 mg), ibuprofen (2 pills, 400 mg) every 6 hours as needed for pain and fever control. Please take antibiotics until course complete. Please return to the emergency department if your symptoms change or worsen. Specifically if you develop acutely worsening abdominal pain, fever, vomiting cannot take antibiotics, if you cannot have bowel movements for greater than 7 days. Please follow with your primary care physician for further outpatient evaluation and management. Disposition Disposition: Home, Self Care Discharge Date/Time: 03/03/23 22:48 What to do if you have Problems For any increased pain, shortness of breath, bleeding, nausea or vomiting, chest pain, or any unexpected problems, contact your Primary Care Provider. Call [facility] ([phone]) or report to the closest Emergency Room. Call 911 if necessary. 03/03/23 4297 <Electronically signed by Artemio Aleksandr DO> Cosigner Signature (if applicable): CC: Dr. Tess Krause DO Signed Tess Krause DO Work Phone: Start: 01-01-2022 End: 01-01-2022 Abdomen Single View Procedure Note: See Note; NOTES: [facility] Imaging Services [address] [place] [address] Abdomen Single View MR#: [id number] Acct: [id number] Name: PANKAJ ESQUEDA GENE Rep #: [id number] : 1955 M 66 From: Eddy tavarez MD PCP: Dr. Tess Krause DO Status: REG CLI Study: Abdomen Single View Date of Exam: 01/01/22 Exam# [id number] Ordering Dr: Nicola Magana MD STUDY: X-RAY - ABDOMEN/PELVIS REASON FOR EXAM: Male, 66 years old. CALCULUS OF KIDNEY TECHNIQUE: Single AP view of the abdomen / pelvis. COMPARISON: Comparison is made with prior study 07/10/2021. FINDINGS: Normal visualized lung bases. There is a moderate amount of colonic fecal material. The visualized liver, spleen and kidneys are grossly normal in size and morphology. The previously seen left double-J stent catheter has been withdrawn. Normal soft tissue structures. There are diffuse degenerative changes of the visualized lumbar spine. RAD/Abdomen Single View IMPRESSION: No acute abnormality is seen. Electronically Signed: Eddy Overton MD at 15:01 EDT , CC: Dr. Nicola Magana MD; Dr. Tess Krause DO Adoption Counselor: Signed Tess Krause DO Work Phone: Start: 01-01-2022 Diagnostic radiography of abdomen Start: 09-01-2021 End: 09-01-2021 CTA Chest W/WO Contrast Comments: See Note; NOTES: [facility] Imaging Services [address] [place] [address] CTA Chest W/WO Contrast MR#: [id number] Acct: [id number] Name: PANKAJ ESQUEDA GENE Rep #: [id number] : 1955 M 65 From: Eddy tavarez MD PCP: Dr. Tess Krause, DO Status: [facility] CLI Study: CTA Chest W/WO Contrast Date of Exam: 09/01/21 Exam# [id number] Ordering Dr: Tess Krause DO STUDY: CTA CHEST REASON FOR EXAM: Male, 65 years old. PULMONARY THROMBOEMBOLISM. 3 week history of shortness of breath and chest pain. Recent Covid exposure. RADIATION DOSAGE (If Supplied By Facility): CTDIvol = ( 9.89 ) mGy, DLP = ( 430.61 ) mGycm TECHNIQUE: The examination was performed with the intravenous administration of IV 75mL [id number]-[id number]. Post-processing of the angiographic images was performed, with multiplanar reformation and 3D reconstruction. Individualized dose optimization techniques were used for this CT. COMPARISON: None. FINDINGS: Normal enhancement of the main pulmonary artery and right and left pulmonary arteries. Normal enhancement of the bilateral peripheral pulmonary arteries. There is no demonstrated pulmonary embolism. Normal thoracic aorta and visualized great vessels. There is no demonstrated aortic dissection. Normal heart and pericardium. Normal mediastinum. Normal hilar regions. Normal visualized trachea and bronchi. The lungs are well expanded. Diffuse bilateral pulmonary infiltrates and a preferential peripheral distribution suggestive of a pneumonitis associated with Covid. Normal pleura. Normal chest wall structures. There are degenerative changes of thoracic spine. 8.6 mm adenoma in the left adrenal gland. CT/CTA Chest W/WO Contrast IMPRESSION: No evidence of pulmonary embolism. Diffuse bilateral pulmonary infiltrates and a preferential peripheral distribution suggestive of pneumonitis associated with Covid. Electronically Signed: Eddy Overton MD at 10:25 EST , Service support , CC: Dr. Tess Krause DO Adoption Counselor: Signed Tess Krause DO Work Phone: Start: 07-10-2021 End: 07-11-2021 Abdomen Single View Comments: See Note; NOTES: [facility] Imaging Services [address] [place] [address] Abdomen Single View MR#: [id number] Acct: [id number] Name: PANKAJ ESQUEDA GENE Rep #: [id number] : 1955 M 65 From: Sharon guerra MD PCP: Dr. Tess Krause DO Status: REG CLI Study: Abdomen Single View Date of Exam: 07/10/21 Exam# [id number] Ordering Dr: Nicola Magana MD HISTORY: CALCULUS OF URETER. TECHNIQUE: XR Abdomen 1 View. # of images incl. paperwork: 1. COMPARISON: 07/04/2021. FINDINGS: BOWEL GAS PATTERN: No dilated bowel loops. FREE AIR: Not assessed on supine view. CALCIFICATIONS: Multiple left renal calculi again seen. Left pelvic phleboliths also noted. Left double-J ureteral stent again seen. OSSEOUS STRUCTURES: Mild degenerative change. RAD/Abdomen Single View IMPRESSION: Left nephrolithiasis with left ureteral stent identified. at 0841 Reported and signed by: Sharon Thomson MD Electronically Signed: Sharon Thomson MD at 8:40 EDT Tel , Service support , CC: Dr. Nicola Magana MD; Dr. Tess Krause DO Adoption Counselor: Signed Tess Krause DO Work Phone: Start: 07-07-2021 End: 07-07-2021 History and Physical Exam Comments: See Note; NOTES: [facility] Medical Records Department [address] [place] [address] History Physical Exam 07/07/21 1242 MR#: [id number] Acct: [id number] Name: PANKAJ ESQUEDA GENE Rep #: [id number] : 1955 65 From: Nicola Magana MD PCP: Dr. Tess Krause, DO Status:DEP [facility] Location: [facility] HPI - General HPI Narrative PANKAJ ESQUEDA, is a 65 M who presents with obstructing stone, plan to place and stent treat stone with shockwave lithotripsy. [facility] Medical History (Updated 06/28/21 @ 10:52 by Megan Gonzáles) Alcohol use Back pain Former smoker Heartburn History of diverticulitis History of IBS History of stress test Wears glasses Home Medications cholecalciferol (vitamin D3) [Vitamin D3] 25 mcg PO DAILY 06/28/21 [History Last Taken Unknown] citalopram [Celexa] 20 mg PO DAILY 06/28/21 [History Last Taken Unknown] organ concentrates 140 mg PO DAILY 06/28/21 [History Last Taken Unknown] phenazopyridine 99.9 mg PO QHS 06/28/21 [History Last Taken Unknown] tadalafil [Cialis] 5 mg PO DAILY 06/28/21 [History Last Taken Unknown] cephalexin 500 mg PO BID #10 tab 07/05/21 [Rx Last Taken Unknown] Allergy/AdvReac Type Severity Reaction Status Date / Time ciprofloxacin [From Cipro] AdvReac REFUSED, Verified 07/05/21 13:16 TOO MANY SIDE EFFECTS, TENDON DAMAGE Surgical History (Updated 06/28/21 @ 10:52 by Megan Gonzáles) History of cardiac catheterization Hx of colonoscopy Hx of cystoscopy Social History Smoking Status: Former smoker Vital Signs Vital Signs Vital Signs: Weight Weight: 75.5 kg Body Mass Index (BMI) 28.5 07/07/21 1242 <Electronically signed by Nicola Magana MD> Cosigner Signature (if applicable): CC: Dr. Nicola Magana MD; Dr. Tess Krause DO Signed Tess Krause DO Work Phone: Start: 07-05-2021 End: 07-05-2021 Discharge Instruction Comments: See Note; NOTES: [facility] Medical Records Department [address] [place] [address] Instructions for Home/Discharge Instructions 07/05/21 110 MR#: [id number] Acct: [id number] Name: PANKAJ ESQUEDA Rep #: [id number] : 1955 65 From: Nicola Magana MD PCP: Dr. Tess Krause DO Status:REG SDC Discharge Instructions Diet Discharge Diet: No restrictions Activity Discharge Activity: Return to Normal Activity and May Not Drive (while taking narcotic pain medications.) Dressing / Incision Call your doctor if you observe: Fever of 101 or Higher Follow Up Care Please Follow Up With: Nicola Magana MD When: Call [phone] for an appointment Test Results: Test results from this visit will be discussed in further detail at your follow-up appointment, if applicable. use OTC ibuprofen and tylenol for pain control Discharge Plan Admission Primary Reason for Your Visit: Left ESWL Attending Provider: Nicola Magana Primary Care Provider: Tess Krause Discharge Orders/Prescriptions Prescriptions: New ciprofloxacin HCl [Cipro] 500 mg tablet 500 mg PO BID Qty: 10 RF: 0 Continued citalopram [Celexa] 40 mg Tablet 20 mg PO DAILY RF: 0 organ concentrates 140 mg Capsule 140 mg PO DAILY RF: 0 tadalafil [Cialis] 5 mg Tablet 5 mg PO DAILY RF: 0 cholecalciferol (vitamin D3) [Vitamin D3] 25 mcg (1,000 unit) Tablet 25 mcg PO DAILY RF: 0 phenazopyridine 95 mg Tablet 99.9 mg PO QHS RF: 0 Referrals / Follow Up: Nicola Magana MD [STAFF PHYSICIAN] - Tess Krause DO [Primary Care Provider] - Disposition Disposition (needs filled in before D/C Order can be placed): Home, Self Care 07/05/21 1109<Electronically signed by Nicola Magana MD>Nicola Magana MD CC: Dr. Tess Krause, DO Signed Tess Krause DO Work Phone: Start: 07-05-2021 End: 07-05-2021 Operative Report Comments: See Note; NOTES: [facility] Medical Records Department [address] [place] [address] Operative Report 07/05/21 1109 MR#: [id number] Acct: [id number] Name: PANKAJ ESQUEDA Rep #: [id number] : 1955 65 From: Nicola Magana MD PCP: Dr. Tess Krause, Status:REG [facility] Location: [place] [address] Report of Operation Date of Procedure: 07/05/21 Pre-Operative Diagnosis: left renal calucli s/p stent placement. Post-Operative Diagnosis: same Surgery/Procedure Performed:: Left ESWL Description of Surgical Findings:: Patient presents to the hospital for treatment of a kidney stone with shockwave lithotripsy. In the preoperative area and x-ray was done to confirm the location of the stone, he currently has a stent in place with stone visible on pre op KUB. The x-ray was reviewed and the stone location was reviewed. In the preoperative setting I spoke with the patient regarding the treatment of the stone how the treatment would be conducted and the expectations after surgery. The patient understands there is a risk of bleeding and infection. Also discussed the very rare risk of hematoma or damage to the kidney. We also discussed the risk that the shockwave machine will fail to break the stone adequately and that the patient may need other surgical procedures. We also discussed the possibility that the patient may need a stent after the procedure. After reviewing the procedure with the patient, the patient is signed the consent form all the patient's questions were addressed and was taken back to the operating room for treatment of a kidney stone. Patient was taken back to the operating room, patient was identified by the nursing staff, we identified the side of the treatment and the patient side of treatment had been marked by my initials. The patient underwent general anesthetic and was placed supine on the lithotripter table. We then used fluoroscopy to identify the stone on the Left side. We then positioned the patient under the lithotripter and we used triangulation technique to identify the location of the stone and then we made sure that the stone was engaged in the F2 focal point of F2 Donier lithoprior machine. Once the patient was positioned appropriately and the stone was identified and placed in the F2 focal point of the lithotripter machine we then proceeded with shockwave lithotripsy. In the beginning the shockwave was delivered at a rate of 90 shocks per minute, we monitor the EKG for any ectopy. The power was slowly increased to 5 kV and subsequently at the 7 kV. We then proceeded with the treatment we move the therapy had around during the treatment to make sure the stone stayed in the F2 focal point during the entire treatment and after 3000 shockwaves were delivered to the stone under fluoroscopic guidance the treatment was completed. The patient was given instructions to call the office to make an a follow-up appointment with an xray to evaluate the success of the treatment, pateint understands that its possible the stones may need another procedure.At this point the patient's anesthetic was reversed patient was extubated and taken back to the PACU in stable condition. Surgeon: crow Type of Anesthesia: General Drains: stent in place. Admit VTE Documentation VTE Present on Admission: No VTE Mechan Device Prophylaxis: SCD's 07/05/21 1158 <Electronically signed by Nicola Magana MD> Cosigner Signature (if applicable): CC: Dr. Nicola Magana MD; Dr. Tess Krause DO Signed Tess Krause DO Work Phone: Start: 07-04-2021 End: 07-04-2021 Abdomen Single View Comments: See Note; NOTES: [facility] Imaging Services [address] [place] [address] Abdomen Single View MR#: [id number] Acct: [id number] Name: PANKAJ ESQUEDA GENE Rep #: [id number] : 1955 M 65 From: Cayetano Otero MD PCP: Dr. Tess Krause DO Status: PRE [facility] [place] Study: Abdomen Single View Date of Exam: 07/04/21 Exam# [id number] Ordering Dr: Nicola Magana MD STUDY: X-RAY - ABDOMEN/PELVIS REASON FOR EXAM: Male, 65 years old. Preoperative evaluation for kidney stones. TECHNIQUE: Single AP view of the abdomen / pelvis. COMPARISON: 05/30/2021. FINDINGS: Ureteral catheter in place. There is an unremarkable bowel gas pattern. There is no demonstrated free abdominal air. Stable calcifications overlying the left kidney. Normal soft tissue structures. Normal visualized osseous structures. RAD/Abdomen Single View IMPRESSION: Placement of ureteral catheter with stable left nephrocalcinosis. No acute finding. Electronically Signed: Cayetano Otero MD at 10:01 EDT , Service support , CC: Dr. Nicola Magana MD; Dr. Tess Krause DO Adoption Counselor: Signed Tess Krause DO Work Phone: Start: 06-29-2021 End: 07-03-2021 Spine Lumbar (Routine) Comments: See Note; NOTES: [facility] Imaging Services [address] [place] [id number] Spine Lumbar (Routine) MR#: [id number] Acct: [id number] Name: PANKAJ ESQUEDA GENE Rep #: [id number] : 1955 M 65 From: Jarvis Lipscomb MD PCP: Dr. Tess Krause DO Status: REG CLI Study: Spine Lumbar (Routine) Date of Exam: 06/29/21 Exam# [id number] Ordering Dr: Tess Krause DO History: LOW BACK PAIN, LEFT SCIATIC NERVE PAIN Technique: T1 and T2 MR imaging of the lumbar spine performed without contrast enhancement in axial and sagittal planes. Findings: Loss of the lumbar lordosis. Prominent disc space narrowing noted at the L2-3 and L3-4 levels and to a lesser degree at L4-5 and L5-S1. Modic type II endplate changes are present at the L2-3 level. Conus medullaris and cauda equina are normal. Paraspinal soft tissues are normal. L1-2: No disc protrusion. Normal caliber spinal canal and neural foramina. L2-3: No disc protrusion. Normal caliber spinal canal and neural foramina. L3-4: The vertebral body hypertrophy and facet arthropathy noted causing minimal narrowing of the spinal canal and neuroforamina. L4-5: Mild disc bulging, ligamentous redundancy and facet arthropathy result in minimal impression on the thecal sac and moderate narrowing of the neural foramina. L5-S1: Prominent left central disc herniation displaces the left L5 nerve root and causes significant narrowing of the left lateral recess. Left-sided facet arthropathy also contributes to significant narrowing of the left neural foramen. IMPRESSION: Large left central L5-S1 disc herniation displacing the L5 nerve root and causing significant narrowing of the left lateral recess. Additional findings detailed above. at 1003 Reported and signed by: Jarvis Lipscomb MD Electronically Signed: Jarvis Lipscomb MD at 10:02 EDT Tel , Service support , MRI/Spine Lumbar (Routine) CC: Dr. Tess Krause DO Adoption Counselor: Signed Tess Krause DO Work Phone: Start: 05-30-2021 End: 07-03-2021 Abdomen Single View Comments: See Note; NOTES: [facility] Imaging Services [address] [place] [address] Abdomen Single View MR#: [id number] Acct: [id number] Name: PANKAJ ESQUEDA GENE Rep #: [id number] : 1955 M 65 From: Fabian Davis MD PCP: Dr. Tess Krause DO Status: REG CLI Study: Abdomen Single View Date of Exam: 05/30/21 Exam# [id number] Ordering Dr: Nicola Magana MD INDICATION: URINARY CALCULI EXAMINATION/TECHNIQUE: X-RAY - XR Abdomen 1 View COMPARISON: None FINDINGS: BOWEL GAS PATTERN: Non-obstructive. No bowel or stomach distention. FREE AIR: Not assessed on a single supine view. ORGANOMEGALY: Not seen. CALCIFICATIONS: Multiple calcifications visualized superimposed over the left renal bed, largest of which is visualized superimposed over the medial aspect of the midpole of the left kidney measuring 1.4 cm. No calcifications superimposed over the right renal bed. LOWER CHEST: No acute pathology. BONES AND SOFT TISSUES: Degenerative bone changes seen. No acute pathology. RAD/Abdomen Single View IMPRESSION: Multiple calcifications visualized superimposed over the left renal bed, largest of which is visualized superimposed over the medial aspect of the midpole of the left kidney measuring 1.4 cm. Non-obstructive bowel gas pattern. Electronically Signed: Fabian Davis MD at 12:20 EDT Tel , Service support , CC: Dr. Nicola Magana MD; Dr. Tess Krause DO Adoption Counselor: Signed Tess Krause DO Work Phone: Start: 03-02-2021 End: 03-02-2021 Inital Evaluation (1) - PT Comments: See Note; NOTES: [facility] [address] [place] [address] [address] [place] [address] / REHABILITATION SERVICES INITIAL EVALUATION MR#: [id number] Acct: [id number] Name: MATEO ESQUEDA Rep #: [id number] : 1955 65 From: Renuka Ambrose DPJennifer Referring Dr.: Dr. Tess Krause DO Status: REG RCR Insurance: MEDICARE PART A B [facility] Patient's Visit Information MATEO ESQUEDA is a 65 year old M referred to Physical Therapy by Dr. Tess Krause DO with a diagnosis of Bilateral Hip Bursitis. Date of Evaluation: 03/02/21 Physical Therapist: Renuka Ambrose DPT - Visit Plan Frequency: 2x /Week Duration: 4 Weeks Plan: Focus on core strength/stabilization. HEP Given IE: TA contraction, bridge, hip adduction, pirformis stretch seated, hamstring stretch - Subjective Patient reports that he has been having pain for about a year-insidious onset- feels the pain is spreading further down his legs but the pain is the same. Describes the pain as burning- pain is in the gluts and radiates down the left LE- the knee and both of his feet hurt in the arches. Worst: 5/10 Agg: walking distances (500 feet). Eases: sits down the pain goes away Best: 0/10. Almost instantly the pain goes away. No N/T in the LE. Has not had any x-rays taken. He has had intermittent back problems- nothing he has gotten looked at- sciatica. 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 No issues with his legs given out, stumbles or falls. 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 If he walks he can stop and the pain diminishes but doesn't completely go away until he sits down. Sleep: does wake him up if he sleeps on his right side- he will roll over to his left. The left doesn't bother him when he lays on it. He never slept well. He has worked hard his whole life. PMHx: IBS-Diverticulitis Meds: Ed. 2 years ago he worked out everyday (TM and free weights). He notices now that he hasn't done any of them he is very limited with endurance. - Objective Posture: FH, RS, can correct with verbal cues but does not maintain. Gait: no deviation noted. HR/TR: able without incidence. SLS: 15 seconds- increased trunk sway and hip drop. Stairs: asc/desc- 8 recip with no HR- moderate decrease in control with descent. ROM: Lumbar: WFL reports discomfort with Rot and SB bilateral, Hip: IR/ER increase pain with 25% limitation. Knee/Ankle: WFL. Strength: Core: fair minus, Hip: 4/5 throughout pain with IR/ER, Knee: 5/5 Ankle: 5/5. Flex: HS: severe, Gastroc: severe,. Special Test: LLD negative, Slump: positive, SLR: positive, Dural Signs: positive. Sensation: WNL to gross touch bilateral - Goals Goal 1:: Patient will be I with HEP and progression Goal Time Frame: 4-6 Weeks Goal 2:: Patient will maintain proper posture t/o tx session to demo increased core strength and stabilization Goal Time Frame: 4-6 Weeks Goal 3:: Patient will report no pain with ambulation Goal Time Frame: 4-6 Weeks Goal 4:: Patient will report no radiating symptoms. Goal Time Frame: 4-6 Weeks - Rehabilitation Potential Physical Therapy Diagnosis: Patient presents with hypomobility- he has decreased LE and core strength/stabilization, flex and muscular endurance leading to poor posture and increased pain with ADL's. Rehabilitation Potential: Fair - Anticipated Interventions Patient/Client Instruction: Educate patient on: Benefits of Fitness Program Therapeutic Exercise to Include: Strength training, Endurance training, Balance training, Coordination, Agility training, Body mechanics, Postural training, Flexibilty training, Gait and locomotor training, Neuromotor development, Passive ROM, Active ROM, Dynamic Lumbar Stabilization, Scapular Strength/Stabilization For the Purpose of:: To improve muscle performance and motor function Thank you for the opportunity to evaluate your patient. For Medicare and Medicare HMO plans, please review the plan of care and approve it. It will need to be FAXED BACK to us at [phone] for Medicare purposes. For Medicare only, by signing this I certify the plan of care. Please let me know if there are questions or concerns regarding this plan of care. Physician Signature: _Date: <Electronically signed by Renuka Ambrose DPT> 03/02/21 1340 CC: Dr. Tess Krause, DO ELR Signed Tess Krause DO Work Phone: Start: 02-22-2021 End: 02-22-2021 Hand 2 Views Comments: See Note; NOTES: [facility] Radiology [address] [place] [address] Hand 2 Views MR#: [id number] Acct: [id number] Name: MATEO ESQUEDA Rep #: [id number] : 1955 M 65 From: Rishi Adams MD PCP: Status: DEP AMB Study: Hand 2 Views Date of Exam: 02/22/21 Exam# [id number] Ordering Dr: Tess Krause DO STUDY: X-RAY - LEFT HAND REASON FOR EXAM: Male, 65 years old. Pain TECHNIQUE: 2 view(s) of the hand. COMPARISON: None. FINDINGS: Normal radiocarpal articulation. Normal distal radioulnar joint. Normal visualized carpal bones. Normal carpal articulations Normal carpometacarpal articulation of the thumb. Normal second through fifth carpometacarpal joints. Normal metacarpi. Normal metacarpophalangeal joint of the thumb. Normal interphalangeal joint of the thumb. Normal proximal and distal phalanges of the thumb. Normal metacarpophalangeal joints of the second through fifth fingers. Normal proximal and distal interphalangeal joints of the second through fifth fingers. Normal phalanges of the second through fifth fingers. The soft tissue structures are unremarkable. RAD/Hand 2 Views IMPRESSION: Normal x-ray examination of the hand. Electronically Signed: Rishi Adams MD at 14:27 EDT Tel , Service support , CC: Dr. Tess Krause DO Adoption Counselor: Signed Tess Krause DO Work Phone: Plan of Treatment Date Care Activity Detail Author Start: 07-03-2023 PSA TOTAL +%FREE [phone] (16903) PSA TOTAL +%FREE 461037 (43258) [facility]; [facility] Work Phone: Start: 07-03-2023 Assay of thyroid stimulating hormone tsh TSH (64442) [facility]; [facility] Work Phone: Start: 07-03-2023 Comprehensive metabo lic panel METABOLIC PANEL, COMPREHENSIVE (02696) [facility]; [facility] Work Phone: Start: 07-03-2023 Blood count complete auto&auto difrntl wbc CBC W/AUTO DIFF WBC (99042) [facility]; [facility] Work Phone: Start: 07-03-2023 Lipid panel LIPID PANEL (28997) [facility] Work Phone: Start: 07-03-2023 Assay of prostate specific antigen total PSA TOTAL (RFLX FREE) 472699 (39724) [facility]; [facility] Work Phone: Start: 07-03-2023 Procedure Education Eprescribe d prescriptions (G8553) [facility]; [facility] Work Phone: Start: 07-03-2023 Provider Instruction s for Treatment [facility]; [facility] Work Phone: Start: 07-03-2023 Assay of troponin quantitative Troponin I (90372) [facility]; [facility] Work Phone: Start: 05-31-2023 Influenza vaccination INFLUENZA (#1) [facility] Start: 03-13-2023 Procedure Education Eprescribe d prescriptions (G8553) [facility]; [facility] Work Phone: Start: 03-13-2023 Provider Instruction s for Treatment [facility]; [facility] Work Phone: Start: 01-18-2023 Procedure Education Eprescribe d prescriptions (G8553) [facility]; [facility] Work Phone: Start: 01-18-2023 Provider Instruction s for Treatment [facility]; [facility] Work Phone: Start: 01-18-2023 Assay of prostate specific antigen total PSA (PROSTATE SPECIFIC ANTIGEN) (V76.44) [facility]; [facility] Work Phone: Start: 01-18-2023 Comprehensive metabo lic panel METABOLIC PANEL, COMPREHENSIVE (09453) [facility]; [facility] Work Phone: Start: 01-18-2023 Blood count complete auto&auto difrntl wbc CBC W/AUTO DIFF WBC (49784) [facility]; [facility] Work Phone: Start: 01-18-2023 Assay of thyroid stimulating hormone tsh TSH (52397) [facility]; [facility] Work Phone: Start: 01-18-2023 Lipid panel LIPID PANEL (17720) [facility] Work Phone: Start: 09-30-2022 ADVANCE DIRECTIVE DISCUSSION ADVANCE DIRECTIVE DISCUSSION [facility] Start: 09-30-2022 DEPRESSION ASSESSMENT DEPRESSION ASS ESSMENT [facility] Start: 09-01-2021 Procedure Education Eprescribe d prescriptions (G8553) [facility]; [facility] Work Phone: Start: 07-28-2021 Procedure Education Eprescribe d prescriptions (G8553) [facility]; [facility] Work Phone: Start: 07-28-2021 Provider Instruction s for Treatment [facility]; [facility] Work Phone: Start: 06-07-2021 Procedure Education Eprescribe d prescriptions (G8553) [facility]; [facility] Work Phone: Start: 06-07-2021 Provider Instruction s for Treatment 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 [facility]; [facility] Work Phone: Start: 03-20-2021 Procedure Education Eprescribe d prescriptions (G8553) [facility]; [facility] Work Phone: Start: 03-20-2021 Provider Instruction s for Treatment Reviewed Lab [facility]; [facility] Work Phone: Start: 02-22-2021 Procedure Education Eprescribe d prescriptions (G8553) [facility]; [facility] Work Phone: Start: 02-22-2021 Provider Instruction s for Treatment [facility]; [facility] Work Phone: Start: 02-22-2021 Assay of prostate specific antigen total PSA (PROSTATE SPECIFIC ANTIGEN) (V76.44) [facility]; [facility] Work Phone: Start: 02-22-2021 Hepatitis c antibody HEPATITIS C ANTIBODY (16851) [facility]; [facility] Work Phone: Start: 02-22-2021 C-reactive protein C-REACTIVE PROTEIN (90554) [facility]; [facility] Work Phone: Start: 02-22-2021 Cyclic citrullinated peptide antibody CCP ANTIBODY (82112) [facility]; [facility] Work Phone: Start: 02-22-2021 Sedimentation rate r bc non-automated SED RATE ERYTHROCYTE (82218) [facility]; [facility] Work Phone: Start: 02-22-2021 Antinuclear antibodi es goe GEO (ANTINUCLEAR ANTIBODY) (24603) [facility]; [facility] Work Phone: Start: 02-22-2021 Rheumatoid factor quantitative RHEUMATOID FACTOR-QUANT (34592) [facility]; [facility] Work Phone: Start: 02-22-2021 Assay of thyroid stimulating hormone tsh TSH (THYROID STIMULATING HORMONE) (04451) [facility]; [facility] Work Phone: Start: 02-22-2021 Urine albumin quantitative MICROALBUMIN: CREATININE RATIO (31829) AND (40805) [facility]; [facility] Work Phone: Start: 02-22-2021 Comprehensive metabo lic panel METABOLIC PANEL, COMPREHENSIVE (20850) [facility]; [facility] Work Phone: Start: 02-22-2021 Lipid panel LIPID PANEL (47055) [facility]; [facility] Work Phone: Start: 02-22-2021 Blood count complete auto&auto difrntl wbc CBC with auto diff (55143) [facility]; [facility] Work Phone: Start: 2019 PNEUMOCOCCAL: 65+ (1 - PCV) PNEUMOCOCCAL: 65+ (1 - PCV) [facility] Start: 03-26-2012 Provider Instruction s for Treatment Follow up in 3 months [facility]; [facility] Work Phone: Start: 03-25-[address] ain bodies/parasits SMEAR+INTERP SPECL STAIN (33660) [facility]; [facility] Work Phone: Start: 03-25-2012 Blood count manual c ell count each CBC with manual diff (78015) [facility]; [facility] Work Phone: Start: 03-11-2012 Provider Instruction s for Treatment [facility]; [facility] Work Phone: Start: 01-16-2012 Assay of thyroid stimulating hormone tsh TSH (46182) [facility]; [facility] Work Phone: Start: 01-16-2012 Assay of prostate specific antigen total PSA (PROSTATE SPECIFIC ANTIGEN) (V76.44) [facility]; [facility] Work Phone: Start: 01-16-2012 Blood count manual c ell count each CBC WITH MANUAL DIFF (18089) [facility]; [facility] Work Phone: Start: 01-16-2012 Urine albumin quantitative MICROALBUMIN: CREATININE RATIO (78225) AND (67378) [facility]; [facility] Work Phone: Start: 01-16-2012 Comprehensive metabo lic panel METABOLIC PANEL, COMPREHENSIVE (89679) [facility]; [facility] Work Phone: Start: 01-16-2012 Lipid panel LIPID PANEL (92511) [facility]; [facility] Work Phone: Start: 12-18-2010 Hepatic function panel HEPATIC FUNCTION PANEL (87147) [facility]; [facility] Work Phone: Start: 12-11-2010 Lipid panel Lipid Panel (78501) [facility]; [facility] Work Phone: Start: 12-04-2010 Renal function panel Renal fun ction Panel (68595) [facility]; [facility] Work Phone: Start: 11-06-2010 Provider Instruction s for Treatment FOLLOW UP [id number] with Fast or MEC [facility]; [facility] Work Phone: Start: 2009 PROSTATE CANCER SCREENING DISCUSSION PROSTATE CANCER SCREENING DISCUSSION [facility] Start: 07-19-2008 Hepatic function panel HEPATIC FUNCTION PANEL (14205) [facility]; [facility] Work Phone: Start: 07-19-2008 Lipid panel LIPID PANEL (83848) [facility]; [facility] Work Phone: Start: 07-19-2008 Provider Instruction s for Treatment Cholesterol - Medication Side Effects [facility]; [facility] Work Phone: Start: 06-03-2008 Provider Instruction s for Treatment [facility]; [facility] Work Phone: Start: 06-03-2008 Blood occult fecal h gb deter ia qual feces 1-3 FECAL OCCULT- Tubes sent home (08240) [facility]; [facility] Work Phone: Start: 06-03-2008 Glucose quantitative blood xcpt reagent strip Glucose, PP/2 Hour (91531) [facility]; [facility] Work Phone: Start: 08-07-2007 Provider Instruction s for Treatment [facility]; [facility] Work Phone: Start: 08-07-2007 Glucose quantitative blood xcpt reagent strip Glucose, PP/2 Hour (42779) [facility]; [facility] Work Phone: Start: 08-07-2007 Assay of prostate specific antigen total PSA (PROSTATE SPECIFIC ANTIGEN) (32452) [facility]; [facility] Work Phone: Start: 08-07-2007 Hepatic function panel HEPATIC FUNCTION PANEL (92327) [facility]; [facility] Work Phone: Start: 08-07-2007 Lipid panel LIPID PANEL (60717) [facility]; [facility] Work Phone: Start: 12-05-2006 Provider Instruction s for Treatment [facility]; [facility] Work Phone: Start: 09-27-2006 Blood occult fecal h gb deter ia qual feces 1-3 Fecal Occult Blood , Office (63696) [facility]; [facility] Work Phone: Start: 09-17-2006 Provider Instruction s for Treatment [facility]; [facility] Work Phone: Start: 09-17-2006 Hepatic function panel HEPATIC FUNCTION PANEL (61585) [facility]; [facility] Work Phone: Comment on above: Checking due to Red Yeast Rice use. Start: 08-15-2006 Lipid panel LIPID PANEL (14338) [facility]; [facility] Work Phone: Start: 08-15-2006 Urinalysis qual/semiquant except immunoassays URINALYSIS (99892) [facility]; [facility] Work Phone: Start: 08-15-2006 Assay of prostate specific antigen total PSA (PROSTATE SPECIFIC ANTIGEN) (10887) [facility]; [facility] Work Phone: Start: 2004 SHINGRIX VACCINE (1 of 2) SHINGRIX VACCINE (1 of 2) [facility] Start: 1999 COLOGUARD (FIT-DNA) COLOGUARD (FIT-D NA) [facility] Start: 1999 Colonoscopy COLONOSCOPY [facility] Start: 1999 COLORECTAL CANCER SCREENING COLORECTAL CANCER SCREENING [facility] Start: [address] COLONOGRAPHY [facility] Start: 1999 DIABETES SCREEN DIABETES SCREEN [facility] Start: 1999 FECAL OCCULT BLOOD FECAL OCCULT BLOO D [facility] Start: 1999 SIGMOIDOSCOPY SIGMOIDOSCOPY [facility] Start: 1989 LIPID SCREEN LIPID SCREEN [facility] Start: 1973 Urine microalbumin profile DTAP,TDAP,TD (1 - Tdap) [facility] Start: 1972 HEPATITIS C SCREENING HEPATITIS C MS NORTH [facility] Start: 03-10-1955 COVID-19 VACCINE (#1) COVID-19 VACCI NE (#1) [facility] Patient Education ED Diverticulitis [facility] Work Phone: [facility] Work Phone: End: 06-12-2024 XR DIGIT GENERAL 3V FRONTAL/LAT/OBL LEFT XR DIGIT GENERAL 3V FRONTAL/LAT/OBL LEFT Radiology STAT Laceration of left middle finger without damage to nail, foreign body presence unspecified, initial encounter 1 Occurrences starting 05/14/2023 until 06/12/2024 [facility] Work Phone: Comment on above: 1 Occurrences starti ng 05/14/2023 until 06/12/2024 [facility] Work Phone: [facility] Work Phone: [facility] Work Phone: [facility] Work Phone: [facility] Work Phone: [facility] Work Phone: [facility] Work Phone: [facility] Work Phone: [facility] Work Phone: [facility] Work Phone: [facility] Work Phone: Payers Date Payer Category Payer Self-pay [id number] 2022 Private Health Insurance [facility] AARP SUPPLEMENT [id number] 2022-Present [phone] [id number] [place] [address] Indemnity [id number] 2020 Medicare [id number] 2020 Unknown [id number] 2019 Medicare MEDICARE MEDICAR E A AND B [id number] 2019-Present [phone] [place] [address] Medicare [id number] 2019 Medicare [id number] 2006 Unknown [id number] 1955 Unknown [id number] Medicare [id number] Unknown Unknown [id number] Unknown [id number] Social History Date Type Detail Facility Start: 05-14-2023 Caffeine Use Caffeine Use Comprehens [facility] Work Phone: Comment on above: 3 cups coffee/day Tobacco use: Tobacco use: [facility] Work Phone: Start: 06-28-2021 End: 03-03-2023 Tobacco smoking status NHIS Unknown if ever smoked [facility] Start: 1955 Sex Assigned At Male W [facility] Start: 05-14-2023 Tobacco smoking status NHIS Never smoked tobacco [facility] Start: 05-14-2023 Tobacco use and exposure Smokeless tobacco non-user [facility] Start: 05-14-2023 Alcohol intake Current drinke r of alcohol (finding) [facility] Start: 05-14-2023 Tobacco use panel [facility] Start: 1955 Sex Assigned At Not on file [facility] Clinical Notes 05-14-2023 Ashleigh Allen PA-C - 05/14/2023 4:17 PM EDT Note Date & Type Note Facility 05-14-2023 Note HNO ID: [id number] Author: Ashleigh Allen PA-C Service: ? Author Type: Physician Program Professional Type: Progress Notes Filed: 05/20/2023 2:35 PM Note Text: This note was created using MeetDoctor. Subjective Pankaj Esqueda is a 67 year old male. HPI Patient presents with a left middle finger injury. This occurred about 18 hours ago. He had smashed his finger between a wooden board in the concrete floor. He has a laceration to the distal phalanx. He states it was still painful and his told him he needed to have it looked at so he came in for evaluation. No fever or drainage from the wound. His last tetanus shot was about a year ago per the patient. Review of Systems Musculoskeletal: Left middle finger wound All other systems reviewed and are negative. PAST MEDICAL HISTORY Diagnosis Date Dysphagia Esophagitis, unspecified Irritable bowel syndrome Pure hypercholesterolemia Current Outpatient Medications Medication Sig Dispense Refill PROTONIX 40 MG TAB Take one(1) tablet daily. 30 3 RED YEAST RICE EXTRACT 600 MG CAP Take one(1) tablet daily. 0 CELEXA 40 MG TAB Take one(1) tablet daily. 0 GARLIC 1,500 MG CAP Take one(1) tablet daily. 0 cephALEXin (KEFLEX) 500 mg capsule Take 1 capsule by mouth three times daily for 7 days. 21 capsule 0 No current facility-administered medications for this visit. PAST SURGICAL HISTORY Procedure Laterality Date COLONOSCOPY FLX DX W/COLLJ SPEC WHEN PFRMD 2003 Colonoscopy EGD TRANSORAL BIOPSY SINGLE/MULTIPLE 11/07/06 No family history on file. Social History Tobacco Use Smoking status: Never Smokeless tobacco: Never Substance Use Topics Alcohol use: Yes Objective BP 160/70 Pulse 96 Temp 36.2 ?C (97.2 ?F) Resp 16 Wt 76.8 kg (169 lb 6.4 oz) SpO2 97% Physical Exam Vitals reviewed. Constitutional: Appearance: Normal appearance. HENT: Head: Normocephalic and atraumatic. Musculoskeletal: Hands: Comments: Patient has a flap laceration to the distal phalanx of the left third digit extending to the lateral side of the nail. No nail damage. This does appear subacute with the tissue of the flap being pale and likely nonviable. No active bleeding. He is tender on palpation of the distal phalanx. No sign of tendon injury. No foreign body visualized. Skin: General: Skin is warm and dry. Neurological: Mental Status: He is alert. Assessment and Plan ASSESSMENT/PLAN: 1. Laceration of left middle finger without damage to nail, foreign body presence unspecified, initial encounter - ICD9: 883.0, ICD10: S61.213A The wound is too old to be sutured and the flap tissue appears to likely be nonviable at this point. I did copiously irrigate the wound with normal saline and Hibiclens. I placed Steri-Strips to approximate the wound. Discussed that he will need to heal by secondary intention which may take a few weeks longer than the typical sutured wound. Concern for possible fracture as well with mechanism of injury, x-ray is closed at [facility] however he will go over to [place] to have an x-ray done. I applied finger splint.. Patient's Tdap is already up-to-date per the patient. Will call on results. Abebe for infection prophylaxis sent as well. - XR DIGIT GENERAL 3V FRONTAL/LAT/OBL LEFT Ashleigh Allen PA-C [facility] 05-14-2023 History of Present illness Narrative Images from the original note were not included. This note was created using [employer]ass[employer]. Subjective Pankaj Esqueda is a 67 year old male. HPI Patient presents with a left middle finger injury. This occurred about 18 hours ago. He had smashed his finger between a wooden board in the concrete floor. He has a laceration to the distal phalanx. He states it was still painful and his told him he needed to have it looked at so he came in for evaluation. No fever or drainage from the wound. His last tetanus shot was about a year ago per the patient. Review of Systems Musculoskeletal: Left middle finger wound All other systems reviewed and are negative. PAST MEDICAL HISTORY Diagnosis Date Dysphagia Esophagitis, unspecified Irritable bowel syndrome Pure hypercholesterolemia Current Outpatient Medications Medication Sig Dispense Refill PROTONIX 40 MG TAB Take one(1) tablet daily. 30 3 RED YEAST RICE EXTRACT 600 MG CAP Take one(1) tablet daily. 0 CELEXA 40 MG TAB Take one(1) tablet daily. 0 GARLIC 1,500 MG CAP Take one(1) tablet daily. 0 cephALEXin (KEFLEX) 500 mg capsule Take 1 capsule by mouth three times daily for 7 days. 21 capsule 0 No current facility-administered medications for this visit. PAST SURGICAL HISTORY Procedure Laterality Date COLONOSCOPY FLX DX W/COLLJ SPEC WHEN PFRMD 2003 Colonoscopy EGD TRANSORAL BIOPSY SINGLE/MULTIPLE 11/07/06 No family history on file. Social History Tobacco Use Smoking status: Never Smokeless tobacco: Never Substance Use Topics Alcohol use: Yes Objective BP 160/70 Pulse 96 Temp 36.2 C (97.2 F) Resp 16 Wt 76.8 kg (169 lb 6.4 oz) SpO2 97% Physical Exam Vitals reviewed. Constitutional: Appearance: Normal appearance. HENT: Head: Normocephalic and atraumatic. Musculoskeletal: Hands: Comments: Patient has a flap laceration to the distal phalanx of the left third digit extending to the lateral side of the nail. No nail damage. This does appear subacute with the tissue of the flap being pale and likely nonviable. No active bleeding. He is tender on palpation of the distal phalanx. No sign of tendon injury. No foreign body visualized. Skin: General: Skin is warm and dry. Neurological: Mental Status: He is alert. Assessment and Plan ASSESSMENT/PLAN: 1. Laceration of left middle finger without damage to nail, foreign body presence unspecified, initial encounter - ICD9: 883.0, ICD10: S61.213A The wound is too old to be sutured and the flap tissue appears to likely be nonviable at this point. I did copiously irrigate the wound with normal saline and Hibiclens. I placed Steri-Strips to approximate the wound. Discussed that he will need to heal by secondary intention which may take a few weeks longer than the typical sutured wound. Concern for possible fracture as well with mechanism of injury, x-ray is closed at [facility] however he will go over to [place] to have an x-ray done. Finger splint applied. Patient's Tdap is already up-to-date per the patient. Will call on results. Keflex for infection prophylaxis sent as well. - XR DIGIT GENERAL 3V FRONTAL/LAT/OBL LEFT Ashleigh Allen PA-C documented in this encounter [facility] Evaluation note No assessment information availa ble [facility] Work Phone: Evaluation note Diagnosis Laceration of left middle finger without damage to nail, foreign body presence unspecified, initial encounter- Primary documented in this encounter [facility] Additional Instructions Thank you for trusting us with your care today! Please take Tylenol (2 pills, 650 mg), ibuprofen (2 pills, 400 mg) every 6 hours as needed for pain and fever control. Please take antibiotics until course complete. Please return to the emergency department if your symptoms change or worsen. Specifically if you develop acutely worsening abdominal pain, fever, vomiting cannot take antibiotics, if you cannot have bowel movements for greater than 7 days. Please follow with your primary care physician for further outpatient evaluation and management.[facility] Work Phone: Instructions* Name Dates Details How to Access Health Informa tion Online using Patient Hey, Neighbor! Apps Indication:Non-smoker Start:22-Feb-2021 Instruction Type:Patient Education Patient Instructions Indication:Non-smoker Start:22-Feb-2021 Instruction Type:Provider Instructions for Treatment [facility] Work Phone: Instructions* Name Dates Details How to Access Health Informa tion Online using Patient Hey, [employer] Apps Indication:Non-smoker Start:22-Feb-2021 Instruction Type:Patient Education Patient Instructions Indication:Non-smoker Start:22-Feb-2021 Instruction Type:Provider Instructions for Treatment [facility] Work Phone: Instructions* Name Dates Details How to Access Health Informa tion Online using Patient [employer] and [employer] Apps Indication:Non-smoker Start:22-Feb-2021 Instruction Type:Patient Education Patient Instructions Indication:Non-smoker Start:22-Feb-2021 Instruction Type:Provider Instructions for Treatment [facility]; [facility] Work Phone: instructions* Name Dates Details How to Access Health Informa tion Online using Patient Portal and [employer] Apps Indication:Non-smoker Start:22-Feb-2021 Instruction Type:Patient Education Patient Instructions Indication:Non-smoker Start:22-Feb-2021 Instruction Type:Provider Instructions for Treatment [facility]; [facility] Work Phone: instructions* Name Dates Details How to Access Health Informa tion Online using Patient Portal and [employer] Apps Indication:Non-smoker Start:20-Mar-2021 Instruction Type:Patient Education Patient Instructions Indication:Non-smoker Start:20-Mar-2021 Instruction Type:Provider Instructions for Treatment How to Access Health Informa tion Online using Patient Portal and [employer] Apps Indication:Non-smoker Start:22-Feb-2021 Instruction Type:Patient Education Patient Instructions Indication:Non-smoker Start:22-Feb-2021 Instruction Type:Provider Instructions for Treatment [facility]; [facility] Work Phone: instructions* Name Dates Details How to Access Health Informa tion Online using Patient Portal and [employer] Apps Indication:Non-smoker Start:20-Mar-2021 Instruction Type:Patient Education Patient Instructions Indication:Non-smoker Start:20-Mar-2021 Instruction Type:Provider Instructions for Treatment How to Access Health Informa tion Online using Patient Portal and [employer] Apps Indication:Non-smoker Start:22-Feb-2021 Instruction Type:Patient Education Patient Instructions Indication:Non-smoker Start:22-Feb-2021 Instruction Type:Provider Instructions for Treatment [facility]; [facility] Work Phone: instructions* Name Dates Details Patient Instructions Indication:Non-smoker Start:01-Sep-2021 Instruction Type:Provider Instructions for Treatment How to Access Health Informa tion Online using Patient Portal and [employer] Apps Indication:Non-smoker Start:01-Sep-2021 Instruction Type:Patient Education Patient Instructions Indication:Non-smoker Start:28-Jul-2021 Instruction Type:Provider Instructions for Treatment How to Access Health Informa tion Online using Patient Portal and [employer] Apps Indication:Non-smoker Start:28-Jul-2021 Instruction Type:Patient Education Patient Instructions Indication:Non-smoker Start:07-Jun-2021 Instruction Type:Provider Instructions for Treatment How to Access Health Informa tion Online using Patient Portal and [employer]rd [employer] Apps Indication:Non-smoker Start:07-Jun-2021 Instruction Type:Patient Education How to Access Health Informa tion Online using Patient Portal and [employer]rd [employer] Apps Indication:Non-smoker Start:20-Mar-2021 Instruction Type:Patient Education Patient Instructions Indication:Non-smoker Start:20-Mar-2021 Instruction Type:Provider Instructions for Treatment How to Access Health Informa tion Online using Patient Portal and [employer]rd [employer] Apps Indication:Non-smoker Start:22-Feb-2021 Instruction Type:Patient Education Patient Instructions Indication:Non-smoker Start:22-Feb-2021 Instruction Type:Provider Instructions for Treatment [facility] Work Phone: Instructions* Name Dates Details Patient Instructions Indication:Non-smoker Start:18-Jan-2023 Instruction Type:Provider Instructions for Treatment How to Access Health Informa tion Online using Patient Portal and [employer]rd Libert[employer] Apps Indication:Non-smoker Start:18-Jan-2023 Instruction Type:Patient Education Patient Instructions Indication:Non-smoker Start:01-Sep-2021 Instruction Type:Provider Instructions for Treatment How to Access Health Informa tion Online using Patient Portal and [employer]rd [employer] Apps Indication:Non-smoker Start:01-Sep-2021 Instruction Type:Patient Education Patient Instructions Indication:Non-smoker Start:28-Jul-2021 Instruction Type:Provider Instructions for Treatment How to Access Health Informa tion Online using Patient Portal and [employer]rd [employer] Apps Indication:Non-smoker Start:28-Jul-2021 Instruction Type:Patient Education Patient Instructions Indication:Non-smoker Start:07-Jun-2021 Instruction Type:Provider Instructions for Treatment How to Access Health Informa tion Online using Patient Portal and [employer]rd [employer] Apps Indication:Non-smoker Start:07-Jun-2021 Instruction Type:Patient Education How to Access Health Informa tion Online using Patient Portal and 3rd Libert[employer] Apps Indication:Non-smoker Start:20-Mar-2021 Instruction Type:Patient Education Patient Instructions Indication:Non-smoker Start:20-Mar-2021 Instruction Type:Provider Instructions for Treatment How to Access Health Informa tion Online using Patient Portal and [employer]rd [employer] Apps Indication:Non-smoker Start:22-Feb-2021 Instruction Type:Patient Education Patient Instructions Indication:Non-smoker Start:22-Feb-2021 Instruction Type:Provider Instructions for Treatment [facility] Work Phone: instructions* Name Dates Details Patient Instructions Indication:Non-smoker Start:18-Jan-2023 Instruction Type:Provider Instructions for Treatment How to Access Health Informa tion Online using Patient Portal and [employer]rd [employer] Apps Indication:Non-smoker Start:18-Jan-2023 Instruction Type:Patient Education Patient Instructions Indication:Non-smoker Start:01-Sep-2021 Instruction Type:Provider Instructions for Treatment How to Access Health Informa tion Online using Patient Portal and [employer]rd [employer] Apps Indication:Non-smoker Start:01-Sep-2021 Instruction Type:Patient Education Patient Instructions Indication:Non-smoker Start:28-Jul-2021 Instruction Type:Provider Instructions for Treatment How to Access Health Informa tion Online using Patient Portal and [employer] Apps Indication:Non-smoker Start:28-Jul-2021 Instruction Type:Patient Education Patient Instructions Indication:Non-smoker Start:07-Jun-2021 Instruction Type:Provider Instructions for Treatment How to Access Health Informa tion Online using Patient Portal and [employer] Apps Indication:Non-smoker Start:07-Jun-2021 Instruction Type:Patient Education How to Access Health Informa tion Online using Patient Portal and [employer] Apps Indication:Non-smoker Start:20-Mar-2021 Instruction Type:Patient Education Patient Instructions Indication:Non-smoker Start:20-Mar-2021 Instruction Type:Provider Instructions for Treatment How to Access Health Informa tion Online using Patient Portal and [employer] Apps Indication:Non-smoker Start:22-Feb-2021 Instruction Type:Patient Education Patient Instructions Indication:Non-smoker Start:22-Feb-2021 Instruction Type:Provider Instructions for Treatment [facility] Work Phone: Insnwfigions* Name Dates Details How to Access Health Informa tion Online using Patient Portal and [employer]rd [employer] Apps Indication:Non-smoker Start:13-Mar-2023 Instruction Type:Patient Education Patient Instructions Indication:Non-smoker Start:13-Mar-2023 Instruction Type:Provider Instructions for Treatment Patient Instructions Indication:Non-smoker Start:18-Jan-2023 Instruction Type:Provider Instructions for Treatment How to Access Health Informa tion Online using Patient Portal and [employer]rd [employer] Apps Indication:Non-smoker Start:18-Jan-2023 Instruction Type:Patient Education Patient Instructions Indication:Non-smoker Start:01-Sep-2021 Instruction Type:Provider Instructions for Treatment How to Access Health Informa tion Online using Patient Portal and 3rd [employer] Apps Indication:Non-smoker Start:01-Sep-2021 Instruction Type:Patient Education Patient Instructions Indication:Non-smoker Start:28-Jul-2021 Instruction Type:Provider Instructions for Treatment How to Access Health Informa tion Online using Patient Portal and [employer] Apps Indication:Non-smoker Start:28-Jul-2021 Instruction Type:Patient Education Patient Instructions Indication:Non-smoker Start:07-Jun-2021 Instruction Type:Provider Instructions for Treatment How to Access Health Informa tion Online using Patient Portal and [employer] Apps Indication:Non-smoker Start:07-Jun-2021 Instruction Type:Patient Education How to Access Health Informa tion Online using Patient Portal and [employer] Apps Indication:Non-smoker Start:20-Mar-2021 Instruction Type:Patient Education Patient Instructions Indication:Non-smoker Start:20-Mar-2021 Instruction Type:Provider Instructions for Treatment How to Access Health Informa tion Online using Patient Portal and [employer] Apps Indication:Non-smoker Start:22-Feb-2021 Instruction Type:Patient Education Patient Instructions Indication:Non-smoker Start:22-Feb-2021 Instruction Type:Provider Instructions for Treatment [facility] Work Phone: Instructions* Name Dates Details Patient Instructions Indication:Non-smoker Start:03-Jul-2023 Instruction Type:Provider Instructions for Treatment How to Access Health Informa tion Online using Patient Portal and [employer] Apps Indication:Non-smoker Start:03-Jul-2023 Instruction Type:Patient Education How to Access Health Informa tion Online using Patient Portal and [employer]rd [employer] Apps Indication:Non-smoker Start:13-Mar-2023 Instruction Type:Patient Education Patient Instructions Indication:Non-smoker Start:13-Mar-2023 Instruction Type:Provider Instructions for Treatment Patient Instructions Indication:Non-smoker Start:18-Jan-2023 Instruction Type:Provider Instructions for Treatment How to Access Health Informa tion Online using Patient Portal and [employer] Apps Indication:Non-smoker Start:18-Jan-2023 Instruction Type:Patient Education Patient Instructions Indication:Non-smoker Start:01-Sep-2021 Instruction Type:Provider Instructions for Treatment How to Access Health Informa tion Online using Patient Portal and [employer] Apps Indication:Non-smoker Start:01-Sep-2021 Instruction Type:Patient Education Patient Instructions Indication:Non-smoker Start:28-Jul-2021 Instruction Type:Provider Instructions for Treatment How to Access Health Informa tion Online using Patient Portal and [employer] Apps Indication:Non-smoker Start:28-Jul-2021 Instruction Type:Patient Education Patient Instructions Indication:Non-smoker Start:07-Jun-2021 Instruction Type:Provider Instructions for Treatment How to Access Health Informa tion Online using Patient Portal and [employer] Apps Indication:Non-smoker Start:07-Jun-2021 Instruction Type:Patient Education How to Access Health Informa tion Online using Patient Portal and [employer] Apps Indication:Non-smoker Start:20-Mar-2021 Instruction Type:Patient Education Patient Instructions Indication:Non-smoker Start:20-Mar-2021 Instruction Type:Provider Instructions for Treatment How to Access Health Informa tion Online using Patient Portal and [employer] Apps Indication:Non-smoker Start:22-Feb-2021 Instruction Type:Patient Education Patient Instructions Indication:Non-smoker Start:22-Feb-2021 Instruction Type:Provider Instructions for Treatment [facility] Work Phone: Instructions* Name Dates Details Patient Instructions Indication:Non-smoker Start:03-Jul-2023 Instruction Type:Provider Instructions for Treatment How to Access Health Informa tion Online using Patient Portal and [employer] Apps Indication:Non-smoker Start:03-Jul-2023 Instruction Type:Patient Education How to Access Health Informa tion Online using Patient Portal and [employer] Apps Indication:Non-smoker Start:13-Mar-2023 Instruction Type:Patient Education Patient Instructions Indication:Non-smoker Start:13-Mar-2023 Instruction Type:Provider Instructions for Treatment Patient Instructions Indication:Non-smoker Start:18-Jan-2023 Instruction Type:Provider Instructions for Treatment How to Access Health Informa tion Online using Patient Portal and [employer] Apps Indication:Non-smoker Start:18-Jan-2023 Instruction Type:Patient Education Patient Instructions Indication:Non-smoker Start:01-Sep-2021 Instruction Type:Provider Instructions for Treatment How to Access Health Informa tion Online using Patient Portal and [employer] Apps Indication:Non-smoker Start:01-Sep-2021 Instruction Type:Patient Education Patient Instructions Indication:Non-smoker Start:28-Jul-2021 Instruction Type:Provider Instructions for Treatment How to Access Health Informa tion Online using Patient Portal and [employer] Apps Indication:Non-smoker Start:28-Jul-2021 Instruction Type:Patient Education Patient Instructions Indication:Non-smoker Start:07-Jun-2021 Instruction Type:Provider Instructions for Treatment How to Access Health Informa tion Online using Patient Portal and [employer] Apps Indication:Non-smoker Start:07-Jun-2021 Instruction Type:Patient Education How to Access Health Informa tion Online using Patient Portal and [employer] Apps Indication:Non-smoker Start:20-Mar-2021 Instruction Type:Patient Education Patient Instructions Indication:Non-smoker Start:20-Mar-2021 Instruction Type:Provider Instructions for Treatment How to Access Health Informa tion Online using Patient Portal and [employer] Apps Indication:Non-smoker Start:22-Feb-2021 Instruction Type:Patient Education Patient Instructions Indication:Non-smoker Start:22-Feb-2021 Instruction Type:Provider Instructions for Treatment [facility] Work Phone: reason for referral (narrative)* Diagnostic Procedure Only (Urgent) - Pending Review Specialty Diagnoses / Procedures Referred By Brijesh estevez Referred To Contact XR IMAGING Diagnoses Laceration of left middle finger without damage to nail, foreign body presence unspecified, initial encounter Procedures XR DIGIT GENERAL 3V FRONTAL/LAT/OBL LEFT RADEX FINGR MINIMUM 2 VIEWS Ashleigh Allen PA-C [address] [place] [address] Xr Imaging Referral ID Status Reason Start Date Expiration Date Visits Requested Visits Authorized [id number] Pending Review Auto-Generat ed Referral 05/14/2023 06/12/2024 1 1 [facility] Advance Directives No Advanced Directives Records Found Advance Directive Response Recorded Date/ Time Living Will Yes June 28, 2021 10:42am Power of [employer] Yes May 10:42am Advance Directive Response Recorded Date/ Time Living Will No March 03, 2023 8 :37pm Power of [employer] No March 03, 2023 8:37pm Summary Purpose Family History No Family History Records FoundNo Family History Records FoundNo Family History Records Found Chief Complaint and Reason for Visit Chief Complaint ABD PAIN x3 DAYS Chief Complaint Abnormal electrocard iogram [ECG] [EKG] Additional Source Comments Goals (unrecognized section and content) Goals may be documented in a n alternate sectionGoals may be documented in an alternate sectionGoals may be documented in an alternate section (unrecognized sect ion and content) No Status Records FoundNo Status Records FoundNo Status Records Found INFORMATION SOURCE (unrecogn ized section and content) DATE CREATED AUTHOR 01/09/2023 [facility] DATE CREATED AUTHOR AUTHOR'S ORGANIZ ATION 05/21/2023 [facility] DATE CREATED AUTHOR AUTHOR'S ORGANIZ ATION 12/25/2024 [facility] Care Teams (unrecognized sec tion and content) Team Status: Active Member Role Status Dates Dr. Tess Krause , DO Primary Care Provider Active Team Status: Active Member Role Status Dates Dr. Tess Krause , DO Primary Care Provider Active Dr. Ana Conroy MD Attending Provider Activ e Team Status: Inactive Member Role Status Dates Dr. Tess Krause , DO Primary Care Pr tameraer, Attending Provider, Referring Provider Active Team Status: Inactive Member Role Status Dates Dr. Tess Krause , DO Primary Care Provider Active Dr. Artemio Brandon , DO Emergency Provider Active Source Comments (unrecognize d section and content) In the event this informatio n is protected by the Federal Confidentiality of Alcohol and Drug Abuse Patient Records regulations: The Federal rules restrict any use of the information to criminally investigate or prosecute any alcohol or drug abuse patient.[facility] Reason for Visit (unrecogniz ed section and content) Reason Comments Derm Problem Left middle finger, cut with board x1 day FOR RECORDS PERTAINING TO PATIENTS WHO ARE OR HAVE BEEN ENROLLED IN A CHEMICAL DEPENDENCY/SUBSTANCEABUSE PROGRAM, SOME INFORMATION MAY BE OMITTED. This clinical summary was aggregated from multiple sources. Caution should be exercised in using it in the provision of clinical care. This summary normalizes information from multiple sources, and as a consequence, information in this document may materially change the coding, format and clinical context of patient data. In addition, data may be omitted in some cases. CLINICAL DECISIONS SHOULD BE BASED ON THE PRIMARY CLINICAL RECORDS. [facility], [facility]. provides no warranty or guarantee of the accuracy or completeness of information in this document.
== END | disposition home or self-care (01) ==
PROVIDERS: PCP Internal Medicine; Referring Provider Nurse Practitioner; Visit Provider Nurse Practitioner
DX: M54.9 Dorsalgia, unspecified (principal); Z87.442 Personal history of urinary calculi; N39.0 Urinary tract infection, site not specified
CPT/HCPCS: 74018; 87086

== ENCOUNTER → 2025-06-28 | Outpatient (CLI) | payer MEDICARE, OTHER, SELFPAY ==
--- NOTE | 2025-06-28 13:44 | CT_ITS ---
PROCEDURE: ABDOMEN/PELVIS WITHOUT CONT 06/28/2025 REASON FOR EXAM: ABD PAIN, ASYMPTOMATIC MICROSCOPIC HEMATURIA, KIDNEY STONE Abdominal pain TECHNIQUE: Procedure Code: CTABDPEL Modality: CT Procedure: ABDOMEN/PELVIS WITHOUT CONT Noncontrast technique limits evaluation of the abdominal and pelvic viscera. Coronal and Sagittal reconstruction series were provided. One or more dose reduction techniques were used (e.g., Automated exposure control, adjustment of the mA and/or kV according to patient size, use of iterative reconstruction technique). RADIATION DOSE SUMMARY: CTDlvol: 9mGy DLP: 432 mGycm COMPARISON: February 2023. FINDINGS: Lung bases: Negative. ABDOMEN Liver: Negative. Biliary system: Negative. Negative for intrahepatic or extrahepatic ductal dilatation. Gallbladder: Mildly contracted gallbladder. Negative for cholecystitis. Spleen: Splenic calcifications. Otherwise negative. Pancreas: Negative. Adrenals: Negative. Kidneys: Moderate left hydroureteronephrosis with a 6 mm stone in the distal left ureter. Nonobstructing left and right kidney stones. Probable bilateral parapelvic cysts. Negative for kidney masses. Bowel: Diverticulosis. Additionally there is a fatty inflammatory lesion adjacent to the sigmoid colon most likely epiploic appendagitis negative for small or large-bowel obstruction. Appendix: Negative. Vasculature: Mild atherosclerotic vascular calcifications of the abdominal aorta and its branches. Peritoneum / Retroperitoneum: Negative. PELVIS Lymph nodes: Negative for inguinal or iliac adenopathy. Bladder: In the bladder negative. Reproductive Organs: Productive organs prostate calcifications. Bones and Soft Tissues: age appropriate appearance off the lumbar spine hips and pelvis. CT/Abdomen/Pelvis without Cont IMPRESSION: Large distal left ureteral stone with moderate left hydroureteronephrosis. Inflammatory process left lower quadrant. Favor epiploic appendagitis. Possib ly mild diverticulitis. Negative for abscess. Reading Location: [place] [id number]
== END | disposition home or self-care (01) ==
LOC: CT 13:40
PROVIDERS: PCP Internal Medicine; Referring Provider Urology; Visit Provider Urology
DX: R10.84 Generalized abdominal pain (principal); R31.21 Asymptomatic microscopic hematuria
CPT/HCPCS: 74176

== ENCOUNTER → 2025-06-30 | Outpatient (CLI) | payer MEDICARE, OTHER, SELFPAY ==
--- NOTE | 2025-06-30 07:42 | EKG12_ITS ---
Test Reason : PRE OP Blood Pressure : */* mmHG Vent. Rate : 64 BPM Atrial Rate : 64 BPM P-R Int : 162 ms QRS Dur : 104 ms QT Int : 414 ms P-R-T Axes : 65 51 45 degrees QTcB Int : 427 ms Normal sinus rhythm Normal ECG Confirmed by Frederick Deutsch ([id number]), television news video editor SHAHID MESA ([id number]) on 07/01/2025 7:16:01 AM Referred By: Nicola Magana Confirmed By: Frederick Deutsch
--- NOTE | 2025-06-30 07:42 | EKG12_ITS ---
Test Reason : PRE OP Blood Pressure : */* mmHG Vent. Rate : 64 BPM Atrial Rate : 64 BPM P-R Int : 162 ms QRS Dur : 104 ms QT Int : 414 ms P-R-T Axes : 65 51 45 degrees QTcB Int : 427 ms Normal sinus rhythm Normal ECG Confirmed by Frederick Deutsch ([id number]), communications editor SHAHID MESA ([id number]) on 07/01/2025 7:16:01 AM Referred By: Nicola Magana Confirmed By: Frederick Deutsch
[2025-06-30 08:13] LABS: Hematocrit 44.5 % (40-54); Hemoglobin 14.4 g/dL (13.0-16.5); Mean Corp Hgb Conc 32.4 g/dL (32-36); Mean Corpuscular Volume 91.4 fL (80-94); Mean Platelet Vol. 8.9 fl (6.2-12.0); Platelet Count 216 K/mm3 (150-450); RBC Distribution Width CV 13.5 % (11.6-14.6); RBC Distribution Width SD 46.4 fl (35.1-43.9); Red Blood Count 4.87 M/mm3 (4.6-6.2); White Blood Count 4.0 K/mm3 (4.4-11.0)
[2025-06-30 08:49] LABS: Anion Gap 9 (5-15); BUN 22 mg/dL (4-19); BUN/Creat Ratio 18.2 RATIO (10-20); Calcium,Total 8.7 mg/dL (7.6-11.0); Carbon Dioxide 25.7 mmol/L (21.0-32.0); Chloride 108 mmol/L (98-108); Glucose 101 mg/dL (70-99); Potassium 4.2 mmol/L (3.3-5.1)
== END | disposition home or self-care (01) ==
LOC: PSN 07:35
PROVIDERS: PCP Internal Medicine; Referring Provider Urology; Visit Provider Urology
DX: Z01.810 Encounter for preprocedural cardiovascular examination (principal); Z01.812 Encounter for preprocedural laboratory examination
CPT/HCPCS: 36415; 80048; 85027; 93005